=== PATIENT | male | born 1955 | race African-American/Black ===

== ENCOUNTER 2016-12-21 00:35 | Emergency (ER) | payer OTHER ==
--- NOTE | 2016-12-21 02:14 | ER Document Report ---
ED Respiratory Problem - General Chief Complaint: Shortness Of Breath Stated Complaint: SHORTNESS OF BREATH Time Seen by Provider: 12/21/16 01:53 Notes: Patient is a 61-year-old male who comes emergency department for chief complaint of cough for 1 week with yellow sputum production and also for increasing shortness of breath over the past 3 days. He states when he walks a short distance he becomes short of breath. He denies chest pain. He states he does have some pain in his upper abdomen over the past day. He denies injury, fever. Past medical history of "enlarged heart" and pacemaker, on metoprolol, denies history of [place], is not on a diuretic, denies lower extremity swelling. TRAVEL OUTSIDE OF THE [place] IN LAST 30 DAYS: No - Related Data Allergies/Adverse Reactions: No Known Allergies Allergy (Unverified 12/21/16 00:41) Past Medical History - General Information source: Patient - Social History Smoking Status: Never Smoker Frequency of alcohol use: None Drug Abuse: None Lives with: Family Family History: None Patient has suicidal ideation: No Patient has homicidal ideation: No - Past Medical History Cardiac Medical History: Reports: Hx Congestive Heart Failure, Hx Hypercholesterolemia, Hx Hypertension Pulmonary Medical History: Denies: Hx Tuberculosis Endocrine Medical History: Reports: Hx Diabetes Mellitus Type 2 Renal/ Medical History: Denies: Hx Peritoneal Dialysis Musculoskeltal Medical History: Reports Hx Arthritis Traumatic Medical History: Reports: Hx Fractures - foot 30 yrs ago Past Surgical History: Reports: Hx Cardiac Surgery - paced/defib x2, Hx Pacemaker - Immunizations Hx Diphtheria, Pertussis, Tetanus Vaccination: No Review of Systems - Review of Systems Constitutional: No symptoms reported EENT: No symptoms reported Cardiovascular: See HPI Respiratory: See HPI Gastrointestinal: See HPI Genitourinary: No symptoms reported Male Genitourinary: No symptoms reported Musculoskeletal: No symptoms reported Skin: No symptoms reported Hematologic/Lymphatic: No symptoms reported Neurological/Psychological: No symptoms reported Physical Exam - Vital signs Vitals: Temp Pulse Resp BP Pulse Ox 98.2 F 68 16 138/89 H 99 12/21/16 00:36 12/21/16 00:36 12/21/16 00:36 12/21/16 00:36 12/21/16 00:36 Interpretation: Normal - General General appearance: Appears well, Alert In distress: None - HEENT Head: Normocephalic, Atraumatic Eyes: Normal Conjunctiva: Normal Extraocular movements intact: Yes Eyelashes: Normal Pupils: PERRL Mucous membranes: Normal Pharynx: Normal Neck: Normal - Respiratory Respiratory status: No respiratory distress Chest status: Nontender Breath sounds: Normal. No: Decreased air movement, Rales, Rhonchi, Wheezing Chest palpation: Normal - Cardiovascular Rhythm: Regular Heart sounds: Normal auscultation Murmur: No - Abdominal Inspection: Normal Distension: No distension Bowel sounds: Normal Tenderness: Tender - upper abdominal tenderness, slightly worse in the RUQ, otherwise benign exam Organomegaly: No organomegaly - Back Back: Normal, Nontender. No: Tender - Extremities General upper extremity: Normal inspection, Nontender, Normal color, Normal ROM , Normal temperature General lower extremity: Normal inspection, Nontender, Normal color, Normal ROM , Normal temperature, Normal weight bearing. No: Meghan's sign - Neurological Neuro grossly intact: Yes Cognition: Normal Orientation: AAOx4 Nish Coma Scale Eye Opening: Spontaneous Ben[place] Coma Scale Verbal: Oriented Nish Coma Scale Motor: Obeys Commands Nish Coma Scale Total: 15 Speech: Normal Motor strength normal: LUE, RUE, LLE, RLE Sensory: Normal - Psychological Associated symptoms: Normal affect, Normal mood - Skin Skin Temperature: Warm Skin Moisture: Dry Skin Color: Normal Course - Re-evaluation Re-evalutation: EKG showing paced rhythm, initial cardiac enzyme indeterminate, patient not complaining of any chest pain, only shortness of breath. No lower extremity swelling that is significant. Lungs clear on examination, no tachypnea or hypoxia. Patient does however become short of breath when he is laying flat. CBC shows leukocytosis with elevation of neutrophils. Chest x-ray showing questionable appearance or opacity in the upper lungs, recommend CAT scan. CAT scan performed after discussion with patient and him being agreeable with this plan, shows possible pneumonia versus fibrosis versus cancer. Patient discussed with Dr. Guerrero. Patient will be covered for pneumonia, he states that he will follow-up very closely with his primary for additional management including additional imaging , discussed return precautions, patient states understanding and agreement. - Vital Signs Vital signs: Temp Pulse Resp BP Pulse Ox 98.2 F 74 20 134/93 H 99 12/21/16 07:04 12/21/16 07:04 12/21/16 07:04 12/21/16 07:04 12/21/16 07:04 - Laboratory Result Diagrams: 12/21/16 02:28 12/21/16 02:28 Laboratory results interpreted by me: 12/21/16 12/21/16 02:28 02:28 WBC 12.5 H Hgb 13.0 L MCHC 31.3 L RDW 14.4 H Absolute Neutrophils 9.2 H Sodium 146.0 H BUN 29 H Creatinine 1.51 H Est GFR ( Amer) 57 L Est GFR (Non-Af Amer) 47 L Glucose 144 H Total Protein 8.8 H Discharge - Discharge Clinical Impression: Shortness of breath Abdominal pain Qualifiers: Abdominal location: generalized Qualified Code(s): R10.84 - Generalized abdominal pain Condition: Stable Disposition: HOME, SELF-CARE Additional Instructions: Your ultrasound shows fatty tissue in your liver, but the gallbladder appears normal. Follow up with your primary provider for management of this. Your CAT scan shows an area in the upper lobe of your lung that could be pneumonia with nearby swollen lymph nodes, however this could also be something different such as fibrosis or even cancer. The recommendation is for you to get a 7-12 week repeat surveillance CAT scan of the chest to make sure this is not progressing into cancer and to make sure it clears after treatment. Please take the Levaquin antibiotic as prescribed, I recommend that you follow- up within the week with your primary care for reevaluation and additional management. Please return immediately if you develop any concerning or worsening symptoms including fever, worsening shortness of breath, chest pain, or any other concerning symptoms. Prescriptions: Levofloxacin [Levaquin 500 mg Tablet] 500 mg PO DAILY #7 tablet Forms: Return to Work
[2016-12-21] MEDS ORDERED: ONDANSETRON 4 MG TAB.RAPDIS PO ONE (02:19)
[2016-12-21] MEDS ORDERED: ONDANSETRON HCL INJ/PF 4 MG/2 ML SDV IV ONE (02:29)
[2016-12-21 02:40] LABS: ABSOLUTE BASOPHILS # (AUTO) 0.1 10^3/uL (0.0-0.2); ABSOLUTE EOSINOPHILS # (AUTO) 0.1 10^3/uL (0.0-0.6); ABSOLUTE LYMPHOCYTES (AUTO) 1.8 10^3/uL (0.5-4.7); ABSOLUTE MONOCYTES (AUTO) 1.4 10^3/uL (0.1-1.4); ABSOLUTE NEUT (AUTO) 9.2 10^3/uL (1.7-8.2); BASOPHILS % (AUTO) 0.5 % (0-2); EOSINOPHILS % (AUTO) 0.5 % (0-6); HEMATOCRIT 41.6 % (37.9-51.0); HGB HCT DIFFERENCE -2.6; LYMPHOCYTES % (AUTO) 14.3 % (13-45); MEAN CORPUSCULAR HEMOGLOBIN 27.9 pg (27.0-33.4); MEAN CORPUSCULAR HGB CONC 31.3 g/dL (32.0-36.0); MEAN CORPUSCULAR VOLUME 89 fl (80-97); MONOCYTES % (AUTO) 10.9 % (3-13); RED BLOOD COUNT 4.66 10^6/uL (4.35-5.55); RED CELL DISTRIBUTION WIDTH 14.4 % (11.5-14.0); SEGMENTED NEUTROPHILS % (AUTO) 73.8 % (42-78); WHITE BLOOD COUNT 12.5 10^3/uL (4.0-10.5)
[2016-12-21 02:47] LABS: ALANINE AMINOTRANSFERASE 66 U/L (21-72); ALBUMIN 4.3 g/dL (3.5-5.0); ALKALINE PHOSPHATASE 90 U/L (38-126); ANION GAP 15 (5-19); ASPARTATE AMINO TRANSFERASE 43 U/L (17-59); BILIRUBIN,DIRECT 0.4 mg/dL (0.0-0.4); BILIRUBIN,TOTAL 0.6 mg/dL (0.2-1.3); BLOOD UREA NITROGEN 29 mg/dL (7-20); CALCIUM 9.2 mg/dL (8.4-10.2); CARBON DIOXIDE 24 mmol/L (22-30); CHLORIDE 107 mmol/L (98-107); CREATINE KINASE 134 U/L (55-170); CREATININE RESULT 1.51 mg/dL (0.52-1.25); GLUCOSE 144 mg/dL (75-110); LIPASE 139.6 U/L (23-300); POTASSIUM 4.5 mmol/L (3.6-5.0); TOTAL PROTEIN 8.8 g/dL (6.3-8.2)
[2016-12-21 02:59] LABS: CREATINE KINASE MB 1.04 ng/mL (<4.55)
[2016-12-21 03:10] LABS: TROPONIN I 0.041 ng/mL
--- NOTE | 2016-12-21 03:12 | RADIOLOGY REPORT (SQ) ---
EXAM DESCRIPTION: U/S ABDOMEN LIMITED W/O DOP COMPLETED DATE/TIME: 12/21/2016 2:58 am REASON FOR STUDY: RUQ pain, vomiting COMPARISON: None. TECHNIQUE: Dynamic and static grayscale images acquired of the abdomen and recorded on PACS. Additio nal selected color Doppler and spectral images recorded. LIMITATIONS: Bowel gas artifact and body habitus. FINDINGS: PANCREAS: Partially obscured. LIVER: Hepatic steatosis. LIVER VASCULATURE: Normal directional flow of the main portal vein and hepatic veins. GALLBLADDER: Nondistended gallbladder. ULTRASOUND-DETECTED REBOLLAR'S SIGN: Negative. INTRAHEPATIC DUCTS AND COMMON DUCT: 0.5 cm diameter CBD and intrahepatic ducts normal caliber. No kathleen ling defects. INFERIOR VENA CAVA: Normal flow. AORTA: Partially obscured. RIGHT KIDNEY: Normal size. Normal echogenicity. No solid or suspicious masses. No hydronephrosis. No calcifications. PERITONEAL AND RIGHT PLEURAL SPACE: No ascites or effusions. OTHER: No other significant findings. IMPRESSION: No acute findings. Hepatic steatosis. Limitation. TECHNICAL DOCUMENTATION: JOB ID: [id number]- All Rights Reserved
--- NOTE | 2016-12-21 03:53 | RADIOLOGY REPORT (SQ) ---
EXAM DESCRIPTION: CHEST PA/LAT COMPLETED DATE/TIME: 12/21/2016 3:29 am REASON FOR STUDY: shortness of breath, cough COMPARISON: 05/30/2016. 03/10/2012. EXAM PARAMETERS: NUMBER OF VIEWS: two views TECHNIQUE: Digital Frontal and Lateral radiographic views of the chest acquired. RADIATION DOSE: NA LIMITATIONS: none FINDINGS: LUNGS AND PLEURA: Mild interstitial markings. Small old -moderate left upper lobar, supra hilar opacity is stable. MEDIASTINUM AND HILAR STRUCTURES: Bi hilar fullness. HEART AND VASCULAR STRUCTURES: Moderate enlargement of the cardiac silhouette. BONES: No acute findings. HARDWARE: Left cardiac stimulation device and leads. OTHER: No other significant finding. IMPRESSION: No significant interval change. Small -mild left suprahilar opacity and bi hilar fullne ss. Differential diagnosis includes central pulmonary edema. Cannot exclude neoplasm. Consider con trast CT chest and/or 3 month CR surveillance as clinically warranted. TECHNICAL DOCUMENTATION: JOB ID: [id number] [employer]- All Rights Reserved
[2016-12-21] MEDS ORDERED: NORMAL SALINE 1000 ML 500 ML IV ONE (04:00)
[2016-12-21] MEDS ORDERED: HYDROCODONE/ACETAMINOPHEN 5-325 MG TABLET PO ONE (04:03)
--- NOTE | 2016-12-21 05:33 | RADIOLOGY REPORT (SQ) ---
EXAM DESCRIPTION: CTA CHEST COMPLETED DATE/TIME: 12/21/2016 5:19 am REASON FOR STUDY: shortness of breath, cough, eval opacity COMPARISON: CR, 12/21/2016. 05/30/2016. TECHNIQUE: CT scan of the chest performed using helical scanning technique with dynamic intravenous contrast injection. Images reviewed with lung, soft tissue and bone windows. Reconstructed coronal and sagittal MPR images reviewed. Additional 3 dimensional post-processing performed to develop Maximal Intensity Projection images ([place] P). All images stored on PACS. All CT scanners at this facility use dose modulation, iterative reconstruction, and/or weight based d osing when appropriate to reduce radiation dose to as low as reasonably achievable (ALARA). [facility]: Dose Right [facility]: CareDose [facility]: Dose Right [facility]: Teradose 4D [facility]: Telun[place]uk CONTRAST TYPE AND DOSE: 86 mL Isovue-300. Creatinine 1.5 RENAL FUNCTION: As above RADIATION DOSE: 1,507 LIMITATIONS: None. FINDINGS: LUNGS AND PLEURA: Small-moderate streaky and airspace opacity of the lingula and left uppe r lobe. AORTA AND GREAT VESSELS: No aneurysm or dissection. HEART: No pericardial effusion. PULMONARY ARTERIES: No emboli visualized in the main pulmonary arteries or the segmental branches. HILAR AND MEDIASTINAL STRUCTURES: Mild bi hilar lymphadenopathy. HARDWARE: None in the chest. UPPER ABDOMEN: Old granulomatous disease of the spleen. The Limited exam. THYROID AND OTHER SOFT TISSUES: No masses. No adenopathy. BONES: No acute or significant finding. 3D MIPS: Confirm above findings. OTHER: No other significant finding. IMPRESSION: Small-moderate streaky in airspace opacity of the left upper lobe. Mild bilateral hilar lymphadenopathy. Differential diagnosis includes pneumonia and fibrosis. Cannot exclude neoplasm. Consider 7-12week surveillance CT and/or current CT/ PET evaluation, as clinically warranted. TECHNICAL DOCUMENTATION: JOB ID: [id number] Quality ID # [id number]: Final reports with documentation of one or more dose reduction techniques (e.g., Au tomated exposure control, adjustment of the mA and/or kV according to patient size, use of iterative reconstruction technique) 2010 [employer]- All Rights Reserved
[2016-12-21] MEDS ORDERED: CEFTRIAXONE 1 GM/D5W RTU 50 ML IV ONE (05:37)
[2016-12-21 07:06] VITALS: BP 134/93
--- NOTE | 2016-12-21 09:34 | EKG REPORT ---
SEVERITY:- ABNORMAL ECG - SINUS RHYTHM FIRST DEGREE AV BLOCK PROBABLE LEFT ATRIAL ABNORMALITY NONSPECIFIC IVCD WITH LAD LEFT VENTRICULAR HYPERTROPHY : Confirmed by: Noel Ortega 21-Dec-2016 09:33:33
== END 2016-12-21 07:17 | disposition home or self-care (01) ==
LOC: ER 00:35
DX: R06.02 Shortness of breath (principal); R10.84 Generalized abdominal pain; R05 Cough; I10 Essential (primary) hypertension; E11.9 Type 2 diabetes mellitus without complications; Z98.890 Other specified postprocedural states; Z95.810 Presence of automatic (implantable) cardiac defibrillator; D72.828 Other elevated white blood cell count
CPT/HCPCS: 93005; 99285; 96361; 96375; 96365; 36415; 87040; 82553; 82550; 83690; 85025; 80053; 84484; 71020; 76705; 71275; 93010; J2405; J7030; J0696

== ENCOUNTER 2016-12-27 19:23 | Emergency (ER) | payer OTHER ==
--- NOTE | 2016-12-27 20:17 | ER Document Report ---
ED Medical Screen (RME) - General Chief Complaint: Shortness Of Breath Stated Complaint: DIFFICULTY BREATHING Time Seen by Provider: 12/27/16 20:13 Mode of Arrival: Wheelchair Information source: Patient TRAVEL OUTSIDE OF THE [place] IN LAST 30 DAYS: No - HPI Patient complains to provider of: cough, Shortness of breath, lower extremity edema Onset: Last week Onset/Duration: Gradual, Persistent, Worse Notes: 12/27/16 20:17 Patient is a 61-year-old male who presents to the emergency room complaining of cough productive of whitish colored phlegm, difficulty breathing, shortness of breath, bilateral lower extremity edema, worsening over the past week, states he was treated for pneumonia recently - Related Data Allergies/Adverse Reactions: No Known Allergies Allergy (Unverified 12/21/16 00:41) Past Medical History - Past Medical History Cardiac Medical History: Reports: Hx Congestive Heart Failure, Hx Hypercholesterolemia, Hx Hypertension Pulmonary Medical History: Denies: Hx Tuberculosis Endocrine Medical History: Reports: Hx Diabetes Mellitus Type 2 Renal/ Medical History: Denies: Hx Peritoneal Dialysis Musculoskeltal Medical History: Reports Hx Arthritis Traumatic Medical History: Reports: Hx Fractures - foot 30 yrs ago Past Surgical History: Reports: Hx Cardiac Surgery - paced/defib x2, Hx Pacemaker - Immunizations Hx Diphtheria, Pertussis, Tetanus Vaccination: No Physical Exam - Vital signs Vitals: Temp Pulse Resp BP Pulse Ox 98.4 F 65 18 111/78 98 12/27/16 19:55 12/27/16 19:55 12/27/16 19:55 12/27/16 19:55 12/27/16 19:55 Course - Vital Signs Vital signs: Temp Pulse Resp BP Pulse Ox 98.4 F 65 18 111/78 98 12/27/16 19:55 12/27/16 19:55 12/27/16 19:55 12/27/16 19:55 12/27/16 19:55
[2016-12-27 21:03] LABS: ABSOLUTE BASOPHILS # (AUTO) 0.1 10^3/uL (0.0-0.2); ABSOLUTE EOSINOPHILS # (AUTO) 0.1 10^3/uL (0.0-0.6); ABSOLUTE LYMPHOCYTES (AUTO) 1.8 10^3/uL (0.5-4.7); ABSOLUTE MONOCYTES (AUTO) 1.3 10^3/uL (0.1-1.4); ABSOLUTE NEUT (AUTO) 6.5 10^3/uL (1.7-8.2); BASOPHILS % (AUTO) 0.6 % (0-2); EOSINOPHILS % (AUTO) 1.1 % (0-6); HEMATOCRIT 39.6 % (37.9-51.0); HEMOGLOBIN 12.6 g/dL (13.5-17.0); HGB HCT DIFFERENCE -1.8; LYMPHOCYTES % (AUTO) 18.2 % (13-45); MEAN CORPUSCULAR HGB CONC 31.8 g/dL (32.0-36.0); MEAN CORPUSCULAR VOLUME 88 fl (80-97); MONOCYTES % (AUTO) 13.3 % (3-13); RED CELL DISTRIBUTION WIDTH 14.6 % (11.5-14.0); SEGMENTED NEUTROPHILS % (AUTO) 66.8 % (42-78); WHITE BLOOD COUNT 9.7 10^3/uL (4.0-10.5)
[2016-12-27 21:28] LABS: ALANINE AMINOTRANSFERASE 227 U/L (21-72); ALBUMIN 3.8 g/dL (3.5-5.0); ALKALINE PHOSPHATASE 93 U/L (38-126); ANION GAP 11 (5-19); ASPARTATE AMINO TRANSFERASE 159 U/L (17-59); BILIRUBIN,DIRECT 0.5 mg/dL (0.0-0.4); BILIRUBIN,TOTAL 0.9 mg/dL (0.2-1.3); BLOOD UREA NITROGEN 30 mg/dL (7-20); CALCIUM 8.8 mg/dL (8.4-10.2); CARBON DIOXIDE 26 mmol/L (22-30); CHLORIDE 101 mmol/L (98-107); CREATININE RESULT 1.61 mg/dL (0.52-1.25); GLUCOSE 95 mg/dL (75-110); POTASSIUM 5.2 mmol/L (3.6-5.0); SODIUM 137.6 mmol/L (137-145); TOTAL PROTEIN 8.2 g/dL (6.3-8.2)
--- NOTE | 2016-12-27 23:34 | RADIOLOGY REPORT (SQ) ---
EXAM DESCRIPTION: CHEST PA/LAT COMPLETED DATE/TIME: 12/27/2016 11:19 pm REASON FOR STUDY: cough COMPARISON: CT chest 12/21/2016 Chest films 12/21/2016, 05/30/2016, 03/10/2012 EXAM PARAMETERS: NUMBER OF VIEWS: two views TECHNIQUE: Digital Frontal and Lateral radiographic views of the chest acquired. RADIATION DOSE: NA LIMITATIONS: none FINDINGS: LUNGS AND PLEURA: Scarring in the left upper lobe similar compared to 05/30/2016. No fluffy alveolar infiltrates worrisome for edema or pneumonia. No pleural effusions. No pneumotho rax. MEDIASTINUM AND HILAR STRUCTURES: No masses or contour abnormalities. HEART AND VASCULAR STRUCTURES: Stable marked cardiomegaly BONES: No acute findings. HARDWARE: Unchanged left-sided pacemaker OTHER: No other significant finding. IMPRESSION: No acute findings TECHNICAL DOCUMENTATION: JOB ID: [id number] [employer]- All Rights Reserved
[2016-12-28] MEDS ORDERED: FUROSEMIDE 40 MG TABLET PO ONE (00:50)
[2016-12-28 00:55] VITALS: BP 124/88
--- NOTE | 2016-12-28 00:56 | ER Document Report ---
ED General - General Chief Complaint: Shortness Of Breath Stated Complaint: DIFFICULTY BREATHING Time Seen by Provider: 12/27/16 20:13 Mode of Arrival: Wheelchair Notes: Patient is a 61-year-old male with past medical history of CHF status post defibrillator placement, chronic kidney disease, recent evaluation and treatment for pneumonia who presents with progressively worsening bilateral lower extremity edema which makes it difficult for him to ambulate. Of note, although in triage there is apparently reported complaint of shortness of breath patient denies this complaint to me and states that his breathing is actually much better than it was a week ago when he was seen and treated for pneumonia. Describes a constant, dull, aching pain to his bilateral lower extremities is worsened by walking. Nothing improves it. States he has had similar symptoms in the past with fluid retention and he notes that he has gained weight since he was last seen in the emergency department. He has not seen his primary care doctor regarding today's concerns. He denies any associated chest pain, syncope, abdominal pain, nausea or vomiting. TRAVEL OUTSIDE OF THE [place] IN LAST 30 DAYS: No - Related Data Allergies/Adverse Reactions: No Known Allergies Allergy (Verified 12/27/16 23:08) Past Medical History - General Information source: Patient - Social History Smoking Status: Never Smoker Chew tobacco use (# tins/day): No Frequency of alcohol use: None Drug Abuse: None Lives with: Family Family History: Reviewed & Not Pertinent - Past Medical History Cardiac Medical History: Reports: Hx Congestive Heart Failure, Hx Hypercholesterolemia, Hx Hypertension Pulmonary Medical History: Denies: Hx Tuberculosis Endocrine Medical History: Reports: Hx Diabetes Mellitus Type 2 Renal/ Medical History: Denies: Hx Peritoneal Dialysis Musculoskeltal Medical History: Reports Hx Arthritis Traumatic Medical History: Reports: Hx Fractures - foot 30 yrs ago Past Surgical History: Reports: Hx Cardiac Surgery - paced/defib x2, Hx Pacemaker - Immunizations Hx Diphtheria, Pertussis, Tetanus Vaccination: - unk Review of Systems - Review of Systems Notes: Constitutional: Negative for fever. HENT: Negative for sore throat. Eyes: Negative for visual changes. Cardiovascular: Negative for chest pain. Respiratory: Negative for shortness of breath. Gastrointestinal: Negative for abdominal pain, vomiting or diarrhea. Genitourinary: Negative for dysuria. Musculoskeletal: Negative for back pain. Positive for bilateral lower extremity edema Skin: Negative for rash. Neurological: Negative for headaches, weakness or numbness. 10 point ROS negative except as marked above and in HPI. Physical Exam - Vital signs Vitals: Temp Pulse Resp BP Pulse Ox 98.4 F 65 18 111/78 98 12/27/16 19:55 12/27/16 19:55 12/27/16 19:55 12/27/16 19:55 12/27/16 19:55 Interpretation: Normal Notes: PHYSICAL EXAMINATION: GENERAL: Well-appearing, well-nourished and in no acute distress. HEAD: Atraumatic, normocephalic. EYES: Pupils equal round and reactive to light, extraocular movements intact, sclera anicteric, conjunctiva are normal. ENT: nares patent, oropharynx clear without exudates. Moist mucous membranes. NECK: Normal range of motion, supple without lymphadenopathy LUNGS: Breath sounds clear to auscultation bilaterally and equal. No wheezes rales or rhonchi. HEART: Regular rate and rhythm, 3/6 systolic ejection murmur ABDOMEN: Soft, nontender, normoactive bowel sounds. No guarding, no rebound. No masses appreciated. EXTREMITIES: 4+ pitting edema to the level of the knee bilaterally that is equal and symmetric. NEUROLOGICAL: No focal neurological deficits. Moves all extremities spontaneously and on command. PSYCH: Normal mood, normal affect. SKIN: Warm, Dry, normal turgor, no rashes or lesions noted. Course - Re-evaluation Re-evalutation: 12/28/16 00:53 Patient presents with increased bilateral leg swelling which she states makes it difficult for him to walk. Patient has gained 5 kg since his last visit to the emergency department only a week ago and does have 4+ pitting edema in the bilateral lower extremities. He does have a history of CHF although is not currently on any diuretics. He did receive some IV fluids during his most recent evaluation in the emergency department. Patient overall clinically appears quite well, no tachypnea, hypoxemia, or evidence of respiratory distress. Chest x-ray without evidence of pulmonary edema. Appears unchanged from his prior chest x-ray. Patient states overall his work of breathing is much improved since he was last in the emergency department after a 7 day course of antibiotics. Of note, this is contrary to the triage initial assessment which patient apparently did complain of some shortness of breath. However to me he is very clear that he is no longer having any shortness of breath and states the main reason for his emergency department visit is due to his increased fluid gain in his lower extremities and how this makes it difficult for him to walk. He denies any chest pain and his EKG is without any ischemic changes. No indication for troponin testing as I do not have a suspicion for ACS at this time. No indication for admission at this time. His laboratories are overall unremarkable. ProBNP is slightly elevated from his baseline which is consistent with his weight gain. He will be placed in compression stockings prior to discharge. He will be started on Lasix 20 mg daily for 1 week and has been asked to follow-up with his primary care doctor within that time period. - Vital Signs Vital signs: Temp Pulse Resp BP Pulse Ox 97.9 F 65 18 124/88 H 99 12/28/16 00:54 12/28/16 00:54 12/28/16 00:54 12/28/16 00:54 12/28/16 00:54 - Laboratory Result Diagrams: 12/27/16 20:44 12/27/16 20:44 Laboratory results interpreted by me: 12/27/16 12/27/16 12/27/16 20:44 20:44 20:44 Hgb 12.6 L MCHC 31.8 L RDW 14.6 H Monocytes % 13.3 H Potassium 5.2 H BUN 30 H Creatinine 1.61 H Est GFR ( Amer) 53 L Est GFR (Non-Af Amer) 44 L Direct Bilirubin 0.5 H AST 159 H ALT 227 H NT-Pro-B Natriuret Pep 5360 H - Diagnostic Test Radiology reviewed: Image reviewed, Reports reviewed Radiology results interpreted by me: 12/28/16 00:55 Chest x-ray: No acute infiltrate or pneumothorax. cardiomegaly. - EKG Interpretation by Me Additional EKG results interpreted by me: 12/28/16 00:55 Normal sinus rhythm. No ST elevations or depressions. First-degree AV block. Right bundle branch block pattern. QTC at 502. Discharge - Discharge Clinical Impression: Pitting edema, Weight gain, abnormal Condition: Good Disposition: HOME, SELF-CARE Additional Instructions: Please take the furosemide as directed for the next 1 week. Wear the compression stockings as much your able. Follow-up with your primary care doctor within the next 1 week. Return to the emergency department if you have increasing shortness of breath, chest pain, pass out, or have any other symptoms that are worrisome to you. Prescriptions: Furosemide [Lasix 20 mg Tablet] 20 mg PO QAM #7 tablet Forms: Return to Work Referrals: LONNIE SNOWDEN MD [Primary Care Provider] - Follow up as needed
--- NOTE | 2016-12-28 10:22 | EKG REPORT ---
SEVERITY:- ABNORMAL ECG - SINUS RHYTHM FIRST DEGREE AV BLOCK RBBB AND LAFB PROBABLE LVH WITH SECONDARY REPOL ABNRM : Confirmed by: Bre Quijano MD 28-Dec-2016 10:21:11
== END 2016-12-28 01:15 | disposition home or self-care (01) ==
LOC: ER 19:23
DX: R60.0 Localized edema (principal); R63.5 Abnormal weight gain; Z68.39 Body mass index [BMI] 39.0-39.9, adult; I44.0 Atrioventricular block, first degree; E11.9 Type 2 diabetes mellitus without complications; I10 Essential (primary) hypertension; Z95.810 Presence of automatic (implantable) cardiac defibrillator; Z86.79 Personal history of other diseases of the circulatory system; Z87.01 Personal history of pneumonia (recurrent)
CPT/HCPCS: 36415; 71020; 80053; 83880; 85025; 87040; 93005; 93010; 99285

== ENCOUNTER 2017-01-27 17:43 | Emergency (ER) | payer OTHER ==
--- NOTE | 2017-01-27 18:26 | ER Document Report ---
ED Medical Screen (RME) - General Chief Complaint: Dizziness Stated Complaint: DIZZY Time Seen by Provider: 01/27/17 18:22 Notes: 61-year-old male who presents stating that he gets dizzy when he walks. He states it happens every time he walks and he feels like he is going to pass out and has to sit down. He also states that he gets some chest pressure and shortness of breath with exertion. He states he does not feel that the chest pressure or shortness of breath are new because he has had this with exertion in the past. However he states that he has not been dizzy with exertion in the past. He does state that his home improvement advisor started him on a new medication 2 weeks ago to control his heart rate. He does not know the name of this medication. Patient denies any vomiting or diarrhea. He states he has not actually passed out. No cough or cold. He states he has no symptoms when sitting down. TRAVEL OUTSIDE OF THE [place] IN LAST 30 DAYS: No - Related Data Allergies/Adverse Reactions: No Known Allergies Allergy (Verified 01/27/17 17:56) Past Medical History - Past Medical History Cardiac Medical History: Reports: Hx Congestive Heart Failure, Hx Hypercholesterolemia, Hx Hypertension Pulmonary Medical History: Denies: Hx Tuberculosis Endocrine Medical History: Reports: Hx Diabetes Mellitus Type 2 Renal/ Medical History: Denies: Hx Peritoneal Dialysis Musculoskeltal Medical History: Reports Hx Arthritis Traumatic Medical History: Reports: Hx Fractures - foot 30 yrs ago Past Surgical History: Reports: Hx Cardiac Surgery - paced/defib x2, Hx Pacemaker - Immunizations Hx Diphtheria, Pertussis, Tetanus Vaccination: - unk Physical Exam - Vital signs Vitals: Temp Pulse Resp BP Pulse Ox 97.7 F 59 L 14 129/88 H 98 01/27/17 17:53 01/27/17 17:53 01/27/17 17:53 01/27/17 17:53 01/27/17 17:53 Course - Vital Signs Vital signs: Temp Pulse Resp BP Pulse Ox 97.7 F 59 L 14 129/88 H 98 01/27/17 17:53 01/27/17 17:53 01/27/17 17:53 01/27/17 17:53 01/27/17 17:53
[2017-01-27 18:56] LABS: ABSOLUTE EOSINOPHILS # (AUTO) 0.1 10^3/uL (0.0-0.6); ABSOLUTE LYMPHOCYTES (AUTO) 1.4 10^3/uL (0.5-4.7); ABSOLUTE NEUT (AUTO) 5.1 10^3/uL (1.7-8.2); BASOPHILS % (AUTO) 0.5 % (0-2); EOSINOPHILS % (AUTO) 0.8 % (0-6); MEAN CORPUSCULAR HEMOGLOBIN 27.6 pg (27.0-33.4); MEAN CORPUSCULAR HGB CONC 31.8 g/dL (32.0-36.0); MEAN CORPUSCULAR VOLUME 87 fl (80-97); RED BLOOD COUNT 4.71 10^6/uL (4.35-5.55); SEGMENTED NEUTROPHILS % (AUTO) 67.7 % (42-78); WHITE BLOOD COUNT 7.6 10^3/uL (4.0-10.5)
--- NOTE | 2017-01-27 18:58 | RADIOLOGY REPORT (SQ) ---
EXAM DESCRIPTION: CHEST SINGLE VIEW COMPLETED DATE/TIME: 01/27/2017 6:43 pm REASON FOR STUDY: sob COMPARISON: Chest radiograph 12/17/[address] 12/21/2016 EXAM PARAMETERS: NUMBER OF VIEWS: One view. TECHNIQUE: Single frontal radiographic view of the chest acquired. RADIATION DOSE: NA LIMITATIONS: None. FINDINGS: LUNGS AND PLEURA: Stable chronic lung change without new opacities, masses or pneumothorax . No pleural effusion. MEDIASTINUM AND HILAR STRUCTURES: No masses. Contour normal. HEART AND VASCULAR STRUCTURES: Heart stable in size. Normal vasculature. BONES: No acute findings. HARDWARE: Stable. OTHER: No other significant finding. IMPRESSION: NO ACUTE CARDIOPULMONARY PROCESS. NO SIGNIFICANT CHANGE FROM PRIOR STUDY TECHNICAL DOCUMENTATION: JOB ID: [id number]
[2017-01-27 19:12] LABS: ALANINE AMINOTRANSFERASE 64 U/L (21-72); ALBUMIN 4.4 g/dL (3.5-5.0); ALKALINE PHOSPHATASE 118 U/L (38-126); ANION GAP 13 (5-19); ASPARTATE AMINO TRANSFERASE 56 U/L (17-59); BILIRUBIN,DIRECT 0.5 mg/dL (0.0-0.4); BLOOD UREA NITROGEN 38 mg/dL (7-20); CALCIUM 8.9 mg/dL (8.4-10.2); CARBON DIOXIDE 22 mmol/L (22-30); CHLORIDE 105 mmol/L (98-107); CREATININE RESULT 2.34 mg/dL (0.52-1.25); GLUCOSE 107 mg/dL (75-110); POTASSIUM 4.6 mmol/L (3.6-5.0); SODIUM 140.3 mmol/L (137-145); TOTAL PROTEIN 8.4 g/dL (6.3-8.2)
--- NOTE | 2017-01-27 20:08 | ER Document Report ---
ED General - General Chief Complaint: Dizziness Stated Complaint: DIZZY Time Seen by Provider: 01/27/17 18:22 Notes: Patient is a 61-year-old male with a past medical history of CHF status post AICD placement, coronary artery disease, morbid obesity, hypertension hyperlipidemia who presents with 3 weeks of exertional lightheadedness and near syncope. Patient reports that the symptoms to resolve after he sits down to rest. He notes that he has some mild shortness of breath during exertion but that this is unchanged from his baseline for the past several years. 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 He denies any chest pain. At time of my assessment he denies any complaints and states that he is always asymptomatic when he is lying or sitting. He has not had any firing of the AICD. He denies any focal weakness or numbness. TRAVEL OUTSIDE OF THE [place] IN LAST 30 DAYS: No - Related Data Allergies/Adverse Reactions: No Known Allergies Allergy (Verified 01/27/17 17:56) Past Medical History - General Information source: Patient - Social History Smoking Status: Never Smoker Chew tobacco use (# tins/day): No Frequency of alcohol use: None Drug Abuse: None Lives with: Spouse/Significant other Family History: Reviewed & Not Pertinent Patient has suicidal ideation: No Patient has homicidal ideation: No - Past Medical History Cardiac Medical History: Reports: Hx Congestive Heart Failure, Hx Hypercholesterolemia, Hx Hypertension Pulmonary Medical History: Denies: Hx Tuberculosis Endocrine Medical History: Reports: Hx Diabetes Mellitus Type 2 Renal/ Medical History: Denies: Hx Peritoneal Dialysis Musculoskeltal Medical History: Reports Hx Arthritis Traumatic Medical History: Reports: Hx Fractures - foot 30 yrs ago Past Surgical History: Reports: Hx Cardiac Surgery - paced/defib x2, Hx Pacemaker - Immunizations Hx Diphtheria, Pertussis, Tetanus Vaccination: - unk Review of Systems - Review of Systems Notes: Constitutional: Negative for fever. HENT: Negative for sore throat. Eyes: Negative for visual changes. Cardiovascular: Negative for chest pain. Respiratory: Negative for shortness of breath. Gastrointestinal: Negative for abdominal pain, vomiting or diarrhea. Genitourinary: Negative for dysuria. Musculoskeletal: Negative for back pain. Skin: Negative for rash. Neurological: Negative for headaches, weakness or numbness. 10 point ROS negative except as marked above and in HPI. Physical Exam - Vital signs Vitals: Temp Pulse Resp BP Pulse Ox 97.7 F 59 L 14 129/88 H 98 01/27/17 17:53 01/27/17 17:53 01/27/17 17:53 01/27/17 17:53 01/27/17 17:53 Interpretation: Normal Notes: PHYSICAL EXAMINATION: GENERAL: Well-appearing, well-nourished and in no acute distress. HEAD: Atraumatic, normocephalic. EYES: Pupils equal round and reactive to light, extraocular movements intact, sclera anicteric, conjunctiva are normal. ENT: nares patent, oropharynx clear without exudates. Moist mucous membranes. NECK: Normal range of motion, supple without lymphadenopathy LUNGS: Breath sounds clear to auscultation bilaterally and equal. No wheezes rales or rhonchi. HEART: Regular rate and rhythm without murmurs ABDOMEN: Soft, nontender, normoactive bowel sounds. No guarding, no rebound. No masses appreciated. EXTREMITIES: Normal range of motion, 3+ pitting edema in the bilateral lower extremities, equal and symmetric NEUROLOGICAL: No focal neurological deficits. Moves all extremities spontaneously and on command. PSYCH: Normal mood, normal affect. SKIN: Warm, Dry, normal turgor, no rashes or lesions noted. Course - Re-evaluation Re-evalutation: 01/27/17 19:56 Patient presents with symptoms of exertional lightheadedness and mild shortness of breath for the past 2-3 weeks. Symptoms are unchanged today. Patient is asymptomatic at time of my assessment while lying in bed. Vitals within normal limits. A troponin is negative and an EKG is unchanged from prior without any acute ischemic changes. Patient is saturating 97% on room air without tachypnea or tachycardia. I do not suspect an acute pulmonary embolus based on exam and history of his well score is 0. Chest x-ray without evidence of pulmonary vascular congestion or pulmonary edema to suggest this is the etiology for patient's presentation. Patient's creatinine is notably elevated relative to the last time he was seen in December at 2.37 today with a prerenal azotemia based on the BUN/creatinine ratio 17. Patient does note that he continues to work outside 8-12 hours a day often drinking only 1 bottle of water and this would be consistent with a prerenal azotemia as seen on labs as well as his history of having exertional lightheadedness and feelings of near syncope. Of note, patient has not had any actual syncopal episodes. He really has an AICD in place for his prior history of CHF and has not had any firing of this device. Patient was ambulated here in the emergency department today without any evidence of significant tachypnea, tachycardia, hypoxemia or syncope. Patient did have mild bradycardia to a heart rate of 43-45 per the nurse. He does have an AICD with a pacer in place and appears that the pacer function is either not activated or the rate is set to rest rate of 40 or lower. I have stressed the importance of close follow-up with patient's director business systems regarding this bradycardia on exertion. I have encouraged the patient to increase his oral fluid intake and will avoid IV fluid administration given his history of CHF. At this time will discharge with return precautions and follow-up recommendations. Verbal discharge instructions given a the bedside and opportunity for questions given. Medication warnings reviewed. Patient is in agreement with this plan and has verbalized understanding of return precautions and the need for primary care follow-up in the next 24-72 hours. - Vital Signs Vital signs: Temp Pulse Resp BP Pulse Ox 98.3 F 60 23 H 124/95 H 100 01/27/17 20:03 01/27/17 19:22 01/27/17 20:03 01/27/17 20:03 01/27/17 20:02 - Laboratory Result Diagrams: 01/27/17 18:35 01/27/17 18:35 Laboratory results interpreted by me: 01/27/17 01/27/17 18:35 18:35 Hgb 13.0 L MCHC 31.8 L RDW 15.0 H BUN 38 H Creatinine 2.34 H Est GFR ( Amer) 34 L Est GFR (Non-Af Amer) 28 L Direct Bilirubin 0.5 H Total Protein 8.4 H - Diagnostic Test Radiology reviewed: Image reviewed, Reports reviewed Radiology results interpreted by me: 01/27/17 19:59 Chest x-ray: No acute infiltrate or pulmonary edema - EKG Interpretation by Me Additional EKG results interpreted by me: 01/27/17 19:59 Sinus rhythm, rate 60. No ST elevations or depressions. First-degree AV block. Left bundle branch block. Unchanged from prior. Discharge - Discharge Clinical Impression: Dizziness, Exertional dyspnea, Prerenal azotemia Condition: Good Disposition: HOME, SELF-CARE Additional Instructions: Your heart rate does drop when you exert yourself here today on ambulation. You need to follow-up with your director business systems regarding this finding as they may need to adjust your pacemaker to prevent your heart rate from dropping so low. Please be sure to drink plenty of fluids and have a recheck of your kidney function testing within the next 1 week. Please return to the emergency department immediately if you pass out, have worsening of your symptoms, chest pain, or any other symptoms that are worrisome to you. Referrals: LONNIE SNOWDEN MD [Primary Care Provider] - Follow up as needed BENIGNO SHEPPARD MD [ACTIVE STAFF] - Follow up in 3-5 days
[2017-01-27 20:32] VITALS: BP 124/95
--- NOTE | 2017-01-29 05:57 | EKG REPORT ---
SEVERITY:- ABNORMAL ECG - SINUS RHYTHM FIRST DEGREE AV BLOCK LEFT BUNDLE BRANCH BLOCK : Confirmed by: Bre Quijano MD 29-Jan-2017 05:57:20
== END 2017-01-27 20:20 | disposition home or self-care (01) ==
LOC: ER 17:43
DX: R42 Dizziness and giddiness (principal); R06.00 Dyspnea, unspecified; R79.89 Other specified abnormal findings of blood chemistry; I50.9 Heart failure, unspecified; I25.10 Atherosclerotic heart disease of native coronary artery without angina pectoris; E66.01 Morbid (severe) obesity due to excess calories; I10 Essential (primary) hypertension; E78.5 Hyperlipidemia, unspecified; R06.02 Shortness of breath
CPT/HCPCS: 36415; 71010; 80053; 84484; 85025; 93005; 93010; 99284

== ENCOUNTER 2017-02-03 07:46 | Emergency (ER) | payer OTHER ==
--- NOTE | 2017-02-03 08:30 | ER Document Report ---
ED Respiratory Problem - General Chief Complaint: Chest Pain Stated Complaint: SHORTNESS OF BREATH Time Seen by Provider: 02/03/17 08:09 Mode of Arrival: Ambulatory Information source: Patient Notes: Patient presents complaining of dyspnea for the past 3-4 weeks. Patient states that he got up really fast this morning and felt dizzy just for a few seconds and then the dizziness resolved. Patient denies any dizziness at this time. Patient does state that his exertional dyspnea seems to be a little bit worse today. Patient reports occasional mild cough. Patient denies any fever or chest pain. Patient does report epigastric tenderness with ambulating. Patient presently denies any tenderness. Patient denies any nausea or vomiting. TRAVEL OUTSIDE OF THE [place] IN LAST 30 DAYS: No - HPI Patient complains to provider of: Short of breath Onset: Other - 3-4 weeks Duration: Worse/persistent Quality of pain: Pressure Pain Level: Denies Context: Hx CHF. denies: Recent immobilization Cough: Nonproductive Associated symptoms: Cough, Extertional dyspnea, Short of breath. 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 Lives with: Alone Family History: Reviewed & Not Pertinent - Past Medical History Cardiac Medical History: Reports: Hx Congestive Heart Failure, Hx Hypercholesterolemia, Hx Hypertension Pulmonary Medical History: Reports: Hx Pneumonia Denies: Hx Tuberculosis Endocrine Medical History: Reports: Hx Diabetes Mellitus Type 2 Renal/ Medical History: Denies: Hx Peritoneal Dialysis Musculoskeltal Medical History: Reports Hx Arthritis Traumatic Medical History: Reports: Hx Fractures - foot 30 yrs ago Past Surgical History: Reports: Hx Cardiac Surgery - paced/defib x2, Hx Pacemaker - Immunizations Hx Diphtheria, Pertussis, Tetanus Vaccination: - unk Review of Systems - Review of Systems Constitutional: No symptoms reported. denies: Fever, Recent illness EENT: No symptoms reported Cardiovascular: Dizziness - after getting up too quickly this am, last few seconds and resolved. denies: Chest pain Respiratory: Cough, Short of breath. denies: Wheezing Gastrointestinal: Abdominal pain - with exertion. denies: Diarrhea, Nausea, Vomiting, Constipation Genitourinary: No symptoms reported Male Genitourinary: No symptoms reported Musculoskeletal: No symptoms reported. denies: Back pain Skin: No symptoms reported Hematologic/Lymphatic: No symptoms reported Neurological/Psychological: No symptoms reported Physical Exam - Vital signs Vitals: Pulse Resp BP Pulse Ox 59 L 20 145/104 H 100 02/03/17 07:51 02/03/17 07:51 02/03/17 07:51 02/03/17 07:51 - General General appearance: Appears well, Alert In distress: None - HEENT Head: Normocephalic, Atraumatic Eyes: Normal Conjunctiva: Normal Nasal: Normal Mouth/Lips: Normal Mucous membranes: Normal Neck: Normal, Supple. No: Lymphadenopathy - Respiratory Respiratory status: No respiratory distress Chest status: Nontender Breath sounds: Normal Chest palpation: Normal - Cardiovascular Rhythm: Regular Heart sounds: S1 appreciated, S2 appreciated - Abdominal Inspection: Obese Distension: No distension Bowel sounds: Normal Tenderness: Tender - epigastric tenderness with palpatin. No: Guarding Organomegaly: No organomegaly - Back Back: Normal, Nontender. No: CVA tenderness - Extremities General upper extremity: Normal inspection, Normal ROM General lower extremity: Normal inspection, Edema - 3+bilat LE, Normal ROM - Neurological Neuro grossly intact: Yes Cognition: Normal Cooter Coma Scale Eye Opening: Spontaneous Cooter Coma Scale Verbal: Oriented Nish Coma Scale Motor: Obeys Commands Cooter Coma Scale Total: 15 - Psychological Associated symptoms: Normal affect, Normal mood - Skin Skin Temperature: Warm Skin Moisture: Dry Skin Color: Ecchymosis - left lateral side that extends to LLQ of abd Course - Re-evaluation Re-evalutation: 02/03/17 10:00 Patient resting comfortably on stretcher. Patient denies any complaints at present, vital signs stable. Patient denies any chest pain. Consulted with Dr. Oconnor regarding patient presentation, reviewed patient's diagnostic test results from today as well as previous 3 ER visits. Recommends giving patient 20 mg of IV Lasix and repeating troponin. If his repeat troponin is negative and the patient still feels well, discharge may be offered. 02/03/17 12:[address] while in the emergency department and heart rate and oxygen saturation remained stable. Patient states that his breathing was much easier while here in the department. Patient denies any chest pain or dizziness. Patient reports that GI cocktail helped his epigastric discomfort and he no longer has any epigastric discomfort at this time. Patient reports feeling better but states he will need a note for his job. Patient agreeable with discharge plan of care. Patient without any chest pain throughout the entire ER visit. Patient only with reproducible epigastric abdominal pain that resolved after GI cocktail. Vital signs stable during ER stay. Patient without any objective signs of dyspnea at this time. The patient has atypical chest pain as the patient's chest pain is not suggestive of pulmonary embolus, cardiac ischemia, aortic dissection, or other serious etiology. Given the extremely low risk of these diagnoses for the test in evaluation for these possibilities does not appear to be indicated at this time. Patient has been instructed to return if the symptoms worsen or change in any way. - Vital Signs Vital signs: Temp Pulse Resp BP Pulse Ox 97.0 F 59 L 16 134/102 H 100 02/03/17 12:53 02/03/17 07:51 02/03/17 12:51 02/03/17 12:51 02/03/17 12:51 - Laboratory Result Diagrams: 02/03/17 08:13 02/03/17 08:58 Laboratory results interpreted by me: 02/03/17 02/03/17 02/03/17 08:13 08:13 08:58 RDW 15.9 H PT 15.7 H BUN 41 H Creatinine 2.03 H Est GFR ( Amer) 40 L Est GFR (Non-Af Amer) 33 L Glucose 141 H Direct Bilirubin 0.6 H AST 81 H Alkaline Phosphatase 139 H NT-Pro-B Natriuret Pep Total Protein 8.3 H 02/03/17 08:58 RDW PT BUN Creatinine Est GFR ( Amer) Est GFR (Non-Af Amer) Glucose Direct Bilirubin AST Alkaline Phosphatase NT-Pro-B Natriuret Pep 3250 H Total Protein Labs- Entire Visit 02/03/17 02/03/17 02/03/17 08:13 08:13 08:58 WBC 6.6 RBC 4.93 Hgb 14.2 Hct 43.9 MCV 89 MCH 28.7 MCHC 32.3 RDW 15.9 H Plt Count 153 Seg Neutrophils % 71.0 Lymphocytes % 16.5 Monocytes % 10.6 Eosinophils % 1.4 Basophils % 0.5 Absolute Neutrophils 4.7 Absolute Lymphocytes 1.1 Absolute Monocytes 0.7 Absolute Eosinophils 0.1 Absolute Basophils 0.0 PT 15.7 H INR 1.17 APTT 31.1 Sodium 143.8 Potassium 4.6 Chloride 104 Carbon Dioxide 26 Anion Gap 14 BUN 41 H Creatinine 2.03 H Est GFR ( Amer) 40 L Est GFR (Non-Af Amer) 33 L Glucose 141 H Calcium 9.0 Total Bilirubin 0.9 Direct Bilirubin 0.6 H Indirect Bilirubin Not Reportable Neonat Total Bilirubin Not Reportable AST 81 H ALT 69 Alkaline Phosphatase 139 H Creatine Kinase 143 CK-MB (CK-2) Troponin I NT-Pro-B Natriuret Pep Total Protein 8.3 H Albumin 4.3 Lipase 176.3 Urine Color Urine Appearance Urine pH Ur Specific [place] Urine Protein Urine Glucose (UA) Urine Ketones Urine Blood Urine Nitrite Urine Bilirubin Urine Urobilinogen Ur Leukocyte Esterase Urine WBC (Auto) Urine RBC (Auto) Squamous Epi Cells Auto Urine Mucus (Auto) Urine Ascorbic Acid 02/03/17 02/03/17 02/03/17 08:58 09:50 11:25 WBC RBC Hgb Hct MCV MCH MCHC RDW Plt Count Seg Neutrophils % Lymphocytes % Monocytes % Eosinophils % Basophils % Absolute Neutrophils Absolute Lymphocytes Absolute Monocytes Absolute Eosinophils Absolute Basophils PT INR APTT Sodium Potassium Chloride Carbon Dioxide Anion Gap BUN Creatinine Est GFR ( Amer) Est GFR (Non-Af Amer) Glucose Calcium Total Bilirubin Direct Bilirubin Indirect Bilirubin Neonat Total Bilirubin AST ALT Alkaline Phosphatase Creatine Kinase CK-MB (CK-2) 1.74 Troponin I < 0.012 < 0.012 NT-Pro-B Natriuret Pep 3250 H Total Protein Albumin Lipase Urine Color YELLOW Urine Appearance CLEAR Urine pH 5.0 Ur Specific [place] 1.013 Urine Protein NEGATIVE Urine Glucose (UA) NEGATIVE Urine Ketones NEGATIVE Urine Blood NEGATIVE Urine Nitrite NEGATIVE Urine Bilirubin NEGATIVE Urine Urobilinogen NEGATIVE Ur Leukocyte Esterase NEGATIVE Urine WBC (Auto) 0 Urine RBC (Auto) 0 Squamous Epi Cells Auto <1 Urine Mucus (Auto) RARE Urine Ascorbic Acid NEGATIVE - Diagnostic Test Radiology reviewed: Reports reviewed Discharge - Discharge Clinical Impression: Epigastric pain, History of CHF (congestive heart failure), Renal insufficiency Dyspnea Qualifiers: Dyspnea type: unspecified Qualified Code(s): R06.00 - Dyspnea, unspecified Condition: Stable Disposition: HOME, SELF-CARE Instructions: Antacid Therapy ([facility]), Prilosec (Acid Pump Inhibitor) ([facility]), Gastritis ([facility]), Dyspnea, Nonspecific ([facility]), Kidney Function Abnormality ([facility]) Additional Instructions: Return immediately for any new or worsening symptoms Followup with your primary care provider, call today to make a followup appointment Follow-up with a preschool special education teacher for further evaluation of abnormal renal functioning, call for an appointment Call 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 Prescriptions: Omeprazole Magnesium [Prilosec Otc] 20 mg PO DAILY #15 tablet. Sucralfate [Carafate 1 gm Tablet] 1 gm PO ACHS #60 tablet Forms: Return to Work Referrals: LONNIE SNOWDEN MD [Primary Care Provider] - Follow up tomorrow Cassandra COLEY MD [ACTIVE STAFF] - Follow up in 3-5 days NIKHIL VENCES MD [NO LOCAL MD] - Follow up as needed
[2017-02-03] MEDS ORDERED: ASPIRIN 81 MG TABLET, CHEWABLE PO ONE (08:44)
[2017-02-03 08:57] LABS: ABSOLUTE EOSINOPHILS # (AUTO) 0.1 10^3/uL (0.0-0.6); ABSOLUTE LYMPHOCYTES (AUTO) 1.1 10^3/uL (0.5-4.7); ABSOLUTE MONOCYTES (AUTO) 0.7 10^3/uL (0.1-1.4); ABSOLUTE NEUT (AUTO) 4.7 10^3/uL (1.7-8.2); BASOPHILS % (AUTO) 0.5 % (0-2); EOSINOPHILS % (AUTO) 1.4 % (0-6); HEMATOCRIT 43.9 % (37.9-51.0); HEMOGLOBIN 14.2 g/dL (13.5-17.0); HGB HCT DIFFERENCE -1.3; LYMPHOCYTES % (AUTO) 16.5 % (13-45); MEAN CORPUSCULAR HEMOGLOBIN 28.7 pg (27.0-33.4); MEAN CORPUSCULAR HGB CONC 32.3 g/dL (32.0-36.0); MEAN CORPUSCULAR VOLUME 89 fl (80-97); MONOCYTES % (AUTO) 10.6 % (3-13); RED BLOOD COUNT 4.93 10^6/uL (4.35-5.55); RED CELL DISTRIBUTION WIDTH 15.9 % (11.5-14.0); WHITE BLOOD COUNT 6.6 10^3/uL (4.0-10.5)
[2017-02-03 08:59] LABS: PROTHROMBIN TIME 15.7 SEC (11.4-15.4)
--- NOTE | 2017-02-03 08:59 | RADIOLOGY REPORT (SQ) ---
EXAM DESCRIPTION: CHEST PA/LAT COMPLETED DATE/TIME: 02/03/2017 8:44 am REASON FOR STUDY: dyspnea COMPARISON: 01/27/2017. NUMBER OF VIEWS: Two view. TECHNIQUE: Frontal and lateral radiographic views of the chest acquired. LIMITATIONS: None. FINDINGS: LUNGS AND PLEURA: No opacities, masses or pneumothorax. No pleural effusion. MEDIASTINUM AND HILAR STRUCTURES: No masses. No contour abnormalities. HEART AND VASCULAR STRUCTURES: Heart enlarged without failure. Aorta normal for age. BONES: No acute findings. HARDWARE: Defibrillator. OTHER: No other significant finding. IMPRESSION: STABLE CARDIAC ENLARGEMENT. NO CHANGE. NO ACUTE FINDINGS. TECHNICAL DOCUMENTATION: JOB ID: [id number] [employer]- All Rights Reserved
[2017-02-03 09:00] LABS: PARTIAL THROMBOPLASTIN TIME 31.1 SEC (23.5-35.8)
[2017-02-03 09:31] LABS: ALANINE AMINOTRANSFERASE 69 U/L (21-72); ALBUMIN 4.3 g/dL (3.5-5.0); ALKALINE PHOSPHATASE 139 U/L (38-126); ANION GAP 14 (5-19); ASPARTATE AMINO TRANSFERASE 81 U/L (17-59); BILIRUBIN,DIRECT 0.6 mg/dL (0.0-0.4); BILIRUBIN,TOTAL 0.9 mg/dL (0.2-1.3); BLOOD UREA NITROGEN 41 mg/dL (7-20); CARBON DIOXIDE 26 mmol/L (22-30); CHLORIDE 104 mmol/L (98-107); CREATINE KINASE 143 U/L (55-170); CREATININE RESULT 2.03 mg/dL (0.52-1.25); GLUCOSE 141 mg/dL (75-110); LIPASE 176.3 U/L (23-300); POTASSIUM 4.6 mmol/L (3.6-5.0); SODIUM 143.8 mmol/L (137-145); TOTAL PROTEIN 8.3 g/dL (6.3-8.2)
[2017-02-03 09:42] LABS: CREATINE KINASE MB 1.74 ng/mL (<4.55)
[2017-02-03 09:44] LABS: TROPONIN I < 0.012 ng/mL
[2017-02-03] MEDS ORDERED: MAG HYDROX/AL HYDROX/SIMETH SUSP 30 ML UDCUP PO ONE (09:51)
[2017-02-03] MEDS ORDERED: LIDOCAINE 2% VISCOUS SOLN 20 ML UDCUP PO ONE (09:51)
[2017-02-03] MEDS ORDERED: FUROSEMIDE INJ/PF 20 MG/2 ML SDV IV ONE (09:59)
[2017-02-03 10:02] LABS: APPEARANCE,URINE CLEAR; BILIRUBIN,URINE NEGATIVE (NEGATIVE); GLUCOSE, URINE NEGATIVE (NEGATIVE); KETONES,URINE NEGATIVE (NEGATIVE); LEUKOCYTE ESTERASE,URINE NEGATIVE (NEGATIVE); NITRITE,URINE NEGATIVE (NEGATIVE); PROTEIN,URINE NEGATIVE (NEGATIVE); URINE SPECIFIC GRAVITY 1.013; UROBILINOGEN,URINE NEGATIVE mg/dL (<2.0)
[2017-02-03 12:54] VITALS: BP 134/102
--- NOTE | 2017-02-03 16:20 | EKG REPORT ---
SEVERITY:- ABNORMAL ECG - ATRIAL-PACED RHYTHM RBBB AND LAFB PVC : Confirmed by: Bre Quijano MD 03-Feb-2017 16:19:01
== END 2017-02-03 13:22 | disposition home or self-care (01) ==
LOC: ER 07:46
DX: R06.02 Shortness of breath (principal); N28.9 Disorder of kidney and ureter, unspecified; R42 Dizziness and giddiness; R58 Hemorrhage, not elsewhere classified; R10.13 Epigastric pain; R05 Cough; R07.89 Other chest pain; R60.0 Localized edema; I10 Essential (primary) hypertension; E11.9 Type 2 diabetes mellitus without complications; Z95.810 Presence of automatic (implantable) cardiac defibrillator; Z86.79 Personal history of other diseases of the circulatory system
CPT/HCPCS: 93005; 99285; 96374; 36415; 82553; 82550; 83690; 85025; 85610; 85730; 80053; 81001; 84484; 83880; 71020; 93010; J1940; J3490

== ENCOUNTER 2017-03-16 14:48 | Emergency (ER) | payer SELFPAY ==
--- NOTE | 2017-03-16 15:06 | ER Document Report ---
ED Medical Screen (RME) - General Chief Complaint: Breathing Difficulty Stated Complaint: DIFFICULTY BREATHING Time Seen by Provider: 03/16/17 15:04 Notes: Patient states for the last several days he is becoming increasingly more short of breath. He has a mild dry cough but no other cold symptoms. He states he does have a history of congestive heart failure and has been taking all his medications. He denies any history of COPD or asthma/emphysema. Patient states he does not feel like he has been retaining fluid. Patient states he has to sit sleeping up. He denies any chest pain. TRAVEL OUTSIDE OF THE [place] IN LAST 30 DAYS: No - Related Data Allergies/Adverse Reactions: No Known Allergies Allergy (Verified 03/16/17 14:58) Past Medical History - Social History Chew tobacco use (# tins/day): No Frequency of alcohol use: None Drug Abuse: None - Past Medical History Cardiac Medical History: Reports: Hx Congestive Heart Failure, Hx Hypercholesterolemia, Hx Hypertension Pulmonary Medical History: Reports: Hx Pneumonia Denies: Hx Tuberculosis Endocrine Medical History: Reports: Hx Diabetes Mellitus Type 2 Renal/ Medical History: Denies: Hx Peritoneal Dialysis Musculoskeltal Medical History: Reports Hx Arthritis Traumatic Medical History: Reports: Hx Fractures - foot 30 yrs ago Past Surgical History: Reports: Hx Cardiac Surgery - paced/defib x2, Hx Pacemaker - Immunizations Hx Diphtheria, Pertussis, Tetanus Vaccination: No - unk Physical Exam - Vital signs Vitals: Temp Pulse Resp BP Pulse Ox 97.7 F 60 18 126/92 H 99 03/16/17 14:53 03/16/17 14:53 03/16/17 14:53 03/16/17 14:53 03/16/17 14:53 Course - Vital Signs Vital signs: Temp Pulse Resp BP Pulse Ox 97.7 F 60 18 126/92 H 99 03/16/17 14:53 03/16/17 14:53 03/16/17 14:53 03/16/17 14:53 03/16/17 14:53
[2017-03-16 15:42] LABS: ABSOLUTE BASOPHILS # (AUTO) 0.1 10^3/uL (0.0-0.2); ABSOLUTE EOSINOPHILS # (AUTO) 0.1 10^3/uL (0.0-0.6); ABSOLUTE LYMPHOCYTES (AUTO) 1.4 10^3/uL (0.5-4.7); ABSOLUTE MONOCYTES (AUTO) 1.2 10^3/uL (0.1-1.4); ABSOLUTE NEUT (AUTO) 5.9 10^3/uL (1.7-8.2); BASOPHILS % (AUTO) 0.6 % (0-2); EOSINOPHILS % (AUTO) 0.7 % (0-6); HEMATOCRIT 40.6 % (37.9-51.0); HEMOGLOBIN 13.5 g/dL (13.5-17.0); HGB HCT DIFFERENCE -0.1; LYMPHOCYTES % (AUTO) 15.9 % (13-45); MEAN CORPUSCULAR HEMOGLOBIN 28.7 pg (27.0-33.4); MEAN CORPUSCULAR HGB CONC 33.3 g/dL (32.0-36.0); MEAN CORPUSCULAR VOLUME 86 fl (80-97); MONOCYTES % (AUTO) 13.9 % (3-13); RED BLOOD COUNT 4.71 10^6/uL (4.35-5.55); RED CELL DISTRIBUTION WIDTH 16.5 % (11.5-14.0); SEGMENTED NEUTROPHILS % (AUTO) 68.9 % (42-78); WHITE BLOOD COUNT 8.6 10^3/uL (4.0-10.5)
[2017-03-16 15:55] LABS: ALANINE AMINOTRANSFERASE 230 U/L (21-72); ALBUMIN 4.4 g/dL (3.5-5.0); ALKALINE PHOSPHATASE 178 U/L (38-126); ANION GAP 17 (5-19); ASPARTATE AMINO TRANSFERASE 206 U/L (17-59); BILIRUBIN,DIRECT 0.8 mg/dL (0.0-0.4); BILIRUBIN,TOTAL 1.3 mg/dL (0.2-1.3); BLOOD UREA NITROGEN 44 mg/dL (7-20); CARBON DIOXIDE 20 mmol/L (22-30); CHLORIDE 103 mmol/L (98-107); CREATININE RESULT 2.02 mg/dL (0.52-1.25); GLUCOSE 108 mg/dL (75-110); SODIUM 139.9 mmol/L (137-145); TOTAL PROTEIN 8.4 g/dL (6.3-8.2)
[2017-03-16 16:10] LABS: TROPONIN I 0.051 ng/mL
--- NOTE | 2017-03-16 16:18 | RADIOLOGY REPORT (SQ) ---
EXAM DESCRIPTION: CHEST PA/LAT COMPLETED DATE/TIME: 03/16/2017 4:01 pm REASON FOR STUDY: sob COMPARISON: None. EXAM PARAMETERS: NUMBER OF VIEWS: two views TECHNIQUE: Digital Frontal and Lateral radiographic views of the chest acquired. RADIATION DOSE: NA LIMITATIONS: none FINDINGS: LUNGS AND PLEURA: Left perihilar stranding versus subsegmental atelectasis. A small porti on of the left heart border is blurred by this finding. MEDIASTINUM AND HILAR STRUCTURES: No masses or contour abnormalities. HEART AND VASCULAR STRUCTURES: Cardiomegaly with pulmonary vascular congestion but no CHF. BONES: No acute findings. HARDWARE: Pacemaker/defibrillator. OTHER: No other significant finding. IMPRESSION: There is left perihilar opacification that is obscured by the pacemaker/defibrillator on prior studies. This could represent localized infiltrate versus subsegmental atelectasis versus sca rring. Neoplasm cannot be excluded. TECHNICAL DOCUMENTATION: JOB ID: [id number] [employer]- All Rights Reserved
[2017-03-16] MEDS ORDERED: FUROSEMIDE 40 MG TABLET PO ONE (17:10)
--- NOTE | 2017-03-16 17:11 | ER Document Report ---
ED General - General Chief Complaint: Breathing Difficulty Stated Complaint: DIFFICULTY BREATHING Time Seen by Provider: 03/16/17 15:04 TRAVEL OUTSIDE OF THE [place] IN LAST 30 DAYS: No - HPI Patient complains to provider of: Difficulty breathing Notes: Patient coming in today for evaluation difficulty breathing. Patient states dyspnea on exertion. Patient states a history of CHF. Patient states he is currently on Lasix 20 mg in the morning states compliance with his medication patient however is not monitoring his weights is not on a fluid restriction has not been monitoring his salt in his diet. Patient states over last few days has increased the amount of lunch meat that he has been eating. Patient denies any chest pain abdominal pain fevers chills nausea vomiting. Upon my evaluation patient is resting comfortably no signs of hypoxia. - Related Data Allergies/Adverse Reactions: No Known Allergies Allergy (Verified 03/16/17 14:58) Home Medications: Current Home Medications Amiodarone HCl [Cordarone 200 mg Tablet] 200 mg PO DAILY 03/16/17 [History] Eplerenone [Eplerenone] 50 mg PO DAILY 03/16/17 [History] Prednisone [Prednisone] 1 mg PO DAILY 03/16/17 [History] Past Medical History - Social History Smoking Status: Never Smoker Chew tobacco use (# tins/day): No Frequency of alcohol use: None Drug Abuse: None Family History: Reviewed & Not Pertinent Patient has suicidal ideation: No - Past Medical History Cardiac Medical History: Reports: Hx Congestive Heart Failure, Hx Hypercholesterolemia, Hx Hypertension Pulmonary Medical History: Reports: Hx Pneumonia Denies: Hx Tuberculosis Endocrine Medical History: Reports: Hx Diabetes Mellitus Type 2 Renal/ Medical History: Denies: Hx Peritoneal Dialysis Musculoskeltal Medical History: Reports Hx Arthritis Traumatic Medical History: Reports: Hx Fractures - foot 30 yrs ago Past Surgical History: Reports: Hx Cardiac Surgery - paced/defib x2, Hx Pacemaker - Immunizations Hx Diphtheria, Pertussis, Tetanus Vaccination: No - unk Review of Systems - Review of Systems Constitutional: No symptoms reported EENT: No symptoms reported Cardiovascular: No symptoms reported Respiratory: Short of breath Gastrointestinal: No symptoms reported Genitourinary: No symptoms reported Male Genitourinary: No symptoms reported Musculoskeletal: No symptoms reported Skin: No symptoms reported Hematologic/Lymphatic: No symptoms reported Neurological/Psychological: No symptoms reported -: Yes All other systems reviewed and negative Physical Exam - Vital signs Vitals: Temp Pulse Resp BP Pulse Ox 97.7 F 60 18 126/92 H 99 03/16/17 14:53 03/16/17 14:53 03/16/17 14:53 03/16/17 14:53 03/16/17 14:53 Interpretation: Normal - General General appearance: Appears well, Alert - HEENT Head: Normocephalic, Atraumatic Eyes: Normal Pupils: PERRL - Respiratory Respiratory status: No respiratory distress Chest status: Nontender Breath sounds: Rales Chest palpation: Normal - Cardiovascular Rhythm: Regular Heart sounds: Normal auscultation Murmur: No - Abdominal Inspection: Normal Distension: No distension Bowel sounds: Normal Tenderness: Nontender Organomegaly: No organomegaly - Back Back: Normal, Nontender - Extremities General upper extremity: Normal inspection, Nontender, Normal color, Normal ROM , Normal temperature General lower extremity: Normal inspection, Nontender, Normal color, Normal ROM , Normal temperature, Normal weight bearing. No: Meghan's sign - Neurological Neuro grossly intact: Yes Cognition: Normal Orientation: AAOx4 [place] Coma Scale Eye Opening: Spontaneous Nish Coma Scale Verbal: Oriented Nish Coma Scale Motor: Obeys Commands [place] Coma Scale Total: 15 Speech: Normal Motor strength normal: LUE, RUE, LLE, RLE Sensory: Normal - Psychological Associated symptoms: Normal affect, Normal mood - Skin Skin Temperature: Warm Skin Moisture: Dry Skin Color: Normal Course - Re-evaluation Re-evalutation: 03/16/17 22:30 Patient coming in with slight CHF exacerbation. Otherwise laboratory values not show any concerning pathology. Encouraged patient follow-up with his primary care physician I will put a consult in for social science manager contact the patient see if he can be evaluated quickly. Patient will increase his Lasix dose from 20-40 patient also was educated about monitoring his weight and also monitoring amount of salt that he ingest. Patient is understanding of signs of extremis patient will be discharged home - Vital Signs Vital signs: Temp Pulse Resp BP Pulse Ox 97.8 F 60 21 H 120/75 97 03/16/17 17:30 03/16/17 14:53 03/16/17 17:30 03/16/17 17:30 03/16/17 17:30 - Laboratory Result Diagrams: 03/16/17 15:20 03/16/17 15:20 Laboratory results interpreted by me: 03/16/17 03/16/17 03/16/17 15:20 15:20 15:20 RDW 16.5 H Plt Count 124 L Monocytes % 13.9 H Carbon Dioxide 20 L BUN 44 H Creatinine 2.02 H Est GFR ( Amer) 41 L Est GFR (Non-Af Amer) 34 L Direct Bilirubin 0.8 H AST 206 H ALT 230 H Alkaline Phosphatase 178 H NT-Pro-B Natriuret Pep 3360 H Total Protein 8.4 H Discharge - Discharge Clinical Impression: Congestive heart failure Qualifiers: Congestive heart failure type: unspecified congestive heart failure type Congestive heart failure chronicity: acute on chronic Qualified Code(s): I50.9 - Heart failure, unspecified Condition: Good Disposition: HOME, SELF-CARE Instructions: Congestive Heart Failure ([facility]) Additional Instructions: More likely your shortness of breath that is worsening due to your increase in salt intake. I would recommend that we start you on your Lasix at 40 mg daily for the next 7 days. Please monitor your weights in the morning I will have her social science manager contact her PCP to try to schedule earlier appointment. Return to the ER symptoms worsen. Continue your other medications as prescribed. You can restart your Lasix at 20 mg after 1 week. Your laboratory studies today also shows slight increase in your liver function more likely this is related to your congestive heart failure. This is something that your primary care physician will need to continue to monitor. Prescriptions: Furosemide [Lasix 40 mg Tablet] 40 mg PO QAM #7 tablet
[2017-03-16 17:45] VITALS: BP 120/75
--- NOTE | 2017-03-16 19:11 | EKG REPORT ---
SEVERITY:- ABNORMAL ECG - ATRIAL-VENTRICULAR DUAL-PACED COMPLEXES : Confirmed by: Gregory Calvillo MD 16-Mar-2017 19:10:50
== END 2017-03-16 17:47 | disposition home or self-care (01) ==
LOC: ER 14:48
DX: I50.9 Heart failure, unspecified (principal); R06.00 Dyspnea, unspecified; I11.0 Hypertensive heart disease with heart failure; E78.00 Pure hypercholesterolemia, unspecified; E11.9 Type 2 diabetes mellitus without complications; Z95.810 Presence of automatic (implantable) cardiac defibrillator
CPT/HCPCS: 36415; 71020; 80053; 83880; 84484; 85025; 93005; 93010; 99285

== ENCOUNTER → 2017-03-30 | Outpatient (CLI) | payer OTHER ==
[2017-03-30 11:07] LABS: ALANINE AMINOTRANSFERASE 82 U/L (21-72); ALBUMIN 4.6 g/dL (3.5-5.0); ALKALINE PHOSPHATASE 173 U/L (38-126); ANION GAP 15 (5-19); ASPARTATE AMINO TRANSFERASE 45 U/L (17-59); BILIRUBIN,DIRECT 0.6 mg/dL (0.0-0.4); BLOOD UREA NITROGEN 42 mg/dL (7-20); CALCIUM 9.3 mg/dL (8.4-10.2); CARBON DIOXIDE 26 mmol/L (22-30); CHLORIDE 104 mmol/L (98-107); CHOLESTEROL 186.03 mg/dL (0-200); CREATININE RESULT 1.81 mg/dL (0.52-1.25); Direct HDL 58 mg/dL (>40); GLUCOSE 128 mg/dL (75-110); POTASSIUM 4.4 mmol/L (3.6-5.0); SODIUM 144.8 mmol/L (137-145); TOTAL PROTEIN 9.4 g/dL (6.3-8.2); TRIGLYCERIDES 68 mg/dL (<150)
[2017-03-30 11:18] LABS: DIRECT LDL 100 mg/dL (<100)
[2017-03-31 10:38] LABS: HEPATITIS C VIRUS AB <0.1 s/co ratio (0.0-0.9)
== END ==
LOC: CCC 09:56
DX: I11.0 Hypertensive heart disease with heart failure (principal)
CPT/HCPCS: 36415; 80053; 80061; 83036; 83880; 84443; 86803; 86804; 87340

== ENCOUNTER 2017-06-09 12:52 | Emergency (ER) | payer OTHER ==
--- NOTE | 2017-06-09 13:59 | ER Document Report ---
ED Medical Screen (RME) - General Chief Complaint: Shortness Of Breath Stated Complaint: SHORTNESS OF BREATH Time Seen by Provider: 06/09/17 13:58 Notes: pt presents with cp/sob TRAVEL OUTSIDE OF THE [place] IN LAST 30 DAYS: No - Related Data Allergies/Adverse Reactions: No Known Allergies Allergy (Verified 03/16/17 14:58) Past Medical History - Social History Chew tobacco use (# tins/day): No Frequency of alcohol use: None Drug Abuse: None - Past Medical History Cardiac Medical History: Reports: Hx Congestive Heart Failure, Hx Hypercholesterolemia, Hx Hypertension Pulmonary Medical History: Reports: Hx Pneumonia Denies: Hx Tuberculosis Endocrine Medical History: Reports: Hx Diabetes Mellitus Type 2 Renal/ Medical History: Denies: Hx Peritoneal Dialysis Musculoskeltal Medical History: Reports Hx Arthritis Traumatic Medical History: Reports: Hx Fractures - foot 30 yrs ago Past Surgical History: Reports: Hx Cardiac Surgery - paced/defib x2, Hx Pacemaker - Immunizations Hx Diphtheria, Pertussis, Tetanus Vaccination: No - unk Physical Exam - Vital signs Vitals: Temp Pulse Resp BP Pulse Ox 98.4 F 57 L 20 102/66 96 06/09/17 13:33 06/09/17 13:33 06/09/17 13:33 06/09/17 13:33 06/09/17 13:33 Course - Vital Signs Vital signs: Temp Pulse Resp BP Pulse Ox 98.4 F 57 L 20 102/66 96 06/09/17 13:33 06/09/17 13:33 06/09/17 13:33 06/09/17 13:33 06/09/17 13:33
[2017-06-09 15:01] LABS: ABSOLUTE BASOPHILS # (AUTO) 0.1 10^3/uL (0.0-0.2); ABSOLUTE EOSINOPHILS # (AUTO) 0.1 10^3/uL (0.0-0.6); ABSOLUTE MONOCYTES (AUTO) 0.9 10^3/uL (0.1-1.4); ABSOLUTE NEUT (AUTO) 5.3 10^3/uL (1.7-8.2); EOSINOPHILS % (AUTO) 1.9 % (0-6); HEMATOCRIT 39.6 % (37.9-51.0); HEMOGLOBIN 13.2 g/dL (13.5-17.0); MEAN CORPUSCULAR HEMOGLOBIN 28.8 pg (27.0-33.4); MEAN CORPUSCULAR HGB CONC 33.5 g/dL (32.0-36.0); MEAN CORPUSCULAR VOLUME 86 fl (80-97); MONOCYTES % (AUTO) 12.1 % (3-13); RED CELL DISTRIBUTION WIDTH 16.7 % (11.5-14.0); WHITE BLOOD COUNT 7.4 10^3/uL (4.0-10.5)
--- NOTE | 2017-06-09 15:08 | RADIOLOGY REPORT (SQ) ---
EXAM DESCRIPTION: CHEST PA/LAT COMPLETED DATE/TIME: 06/09/2017 2:55 pm REASON FOR STUDY: sob COMPARISON: 03/16/2017 and 02/03/2017. CT chest dated 12/21/2016. NUMBER OF VIEWS: Two view. TECHNIQUE: Frontal and lateral radiographic views of the chest acquired. LIMITATIONS: None. FINDINGS: LUNGS AND PLEURA: Chronic scarring in the perihilar left lung, seen on previous chest x-ra y and CT, partially obscured by the defibrillator unit. No opacities, masses or pneumothorax. No ple ural effusion. MEDIASTINUM AND HILAR STRUCTURES: No masses. No contour abnormalities. HEART AND VASCULAR STRUCTURES: Heart enlarged without failure. Aorta normal for age. BONES: No acute findings. HARDWARE: Defibrillator. OTHER: No other significant finding. IMPRESSION: CARDIAC ENLARGEMENT WITHOUT FAILURE. CHRONIC SCARRING IN THE LEFT LUNG. NO APPARENT AC HUGHES FINDINGS. TECHNICAL DOCUMENTATION: JOB ID: [id number] [employer]- All Rights Reserved
[2017-06-09 15:19] LABS: ALANINE AMINOTRANSFERASE 102 U/L (21-72); ALBUMIN 4.3 g/dL (3.5-5.0); ALKALINE PHOSPHATASE 141 U/L (38-126); ANION GAP 15 (5-19); ASPARTATE AMINO TRANSFERASE 89 U/L (17-59); BILIRUBIN,DIRECT 0.7 mg/dL (0.0-0.4); BILIRUBIN,TOTAL 1.2 mg/dL (0.2-1.3); BLOOD UREA NITROGEN 37 mg/dL (7-20); CALCIUM 8.9 mg/dL (8.4-10.2); CARBON DIOXIDE 24 mmol/L (22-30); CHLORIDE 103 mmol/L (98-107); CREATININE RESULT 2.14 mg/dL (0.52-1.25); GLUCOSE 113 mg/dL (75-110); POTASSIUM 4.4 mmol/L (3.6-5.0); SODIUM 142.4 mmol/L (137-145)
--- NOTE | 2017-06-09 20:17 | ER Document Report ---
ED General - General Chief Complaint: Shortness Of Breath Stated Complaint: SHORTNESS OF BREATH Time Seen by Provider: 06/09/17 13:58 Mode of Arrival: Ambulatory Information source: Patient Notes: This is a 61-year-old man with a history of CHF (with pacemaker), arthritis, hypertension, diabetes. The patient presents to the emergency room with shortness of breath chronically since February 02. Patient denies any chest pain or shortness of breath. He does state he may have gained a few pounds over the last week. TRAVEL OUTSIDE OF THE [place] IN LAST 30 DAYS: No - HPI Onset: Last week Onset/Duration: Gradual Quality of pain: No pain Severity: None Pain Level: Denies Associated symptoms: Shortness of breath. denies: Chills, Fever Exacerbated by: Denies Relieved by: Denies Similar symptoms previously: Yes Recently seen / treated by doctor: Yes - Related Data Allergies/Adverse Reactions: No Known Allergies Allergy (Verified 03/16/17 14:58) Past Medical History - General Information source: Patient - Social History Smoking Status: Former Smoker Cigarette use (# per day): No Chew tobacco use (# tins/day): No Frequency of alcohol use: None Drug Abuse: None Lives with: Family Family History: Reviewed & Not Pertinent Patient has suicidal ideation: No Patient has homicidal ideation: No - Past Medical History Cardiac Medical History: Reports: Hx Congestive Heart Failure, Hx Hypercholesterolemia, Hx Hypertension Pulmonary Medical History: Reports: Hx Pneumonia Denies: Hx Tuberculosis Endocrine Medical History: Reports: Hx Diabetes Mellitus Type 2 Renal/ Medical History: Denies: Hx Peritoneal Dialysis Musculoskeltal Medical History: Reports Hx Arthritis Traumatic Medical History: Reports: Hx Fractures - foot 30 yrs ago Past Surgical History: Reports: Hx Cardiac Surgery - paced/defib x2, Hx Pacemaker - Immunizations Hx Diphtheria, Pertussis, Tetanus Vaccination: No - unk Review of Systems - Review of Systems Constitutional: denies: Chills, Fever EENT: No symptoms reported Cardiovascular: No symptoms reported Respiratory: See HPI Gastrointestinal: No symptoms reported Genitourinary: No symptoms reported Male Genitourinary: No symptoms reported Musculoskeletal: No symptoms reported Skin: No symptoms reported Hematologic/Lymphatic: No symptoms reported Neurological/Psychological: No symptoms reported Physical Exam - Vital signs Vitals: Temp Pulse Resp BP Pulse Ox 98.4 F 57 L 20 102/66 96 06/09/17 13:33 06/09/17 13:33 06/09/17 13:33 06/09/17 13:33 06/09/17 13:33 Notes: Physical exam: GENERAL: 61-year-old man, alert and oriented 3, no acute distress. The patient looks relatively good. HEAD: Atraumatic, normocephalic. EYES: Pupils equal round and reactive to light, extraocular movements intact, sclera anicteric, conjunctiva are normal. ENT: TMs normal, nares patent, oropharynx clear without exudates. Moist mucous membranes. NECK: Normal range of motion, supple without obvious mass or JVD. LUNGS: Breath sounds clear to auscultation bilaterally and equal. No wheezes rales or rhonchi. HEART: Regular rate and rhythm without murmurs, rubs or gallops. ABDOMEN: Soft, normoactive bowel sounds. No tenderness to palpation. No guarding, no rebound. No masses appreciated. EXTREMITIES: Mild lower extremity edema. NEUROLOGICAL: Cranial nerves II through XII grossly intact. Normal speech, moving all extremities. PSYCH: Normal mood, normal affect. SKIN: Warm, Dry, normal turgor, no rashes or lesions noted. Course - Vital Signs Vital signs: Temp Pulse Resp BP Pulse Ox 98.0 F 59 L 20 118/95 H 99 06/09/17 18:43 06/09/17 20:34 06/09/17 20:34 06/09/17 20:34 06/09/17 20:34 - Laboratory Result Diagrams: 06/09/17 14:46 06/09/17 14:46 Laboratory results interpreted by me: 06/09/17 06/09/17 14:46 14:46 Hgb 13.2 L RDW 16.7 H BUN 37 H Creatinine 2.14 H Est GFR ( Amer) 38 L Est GFR (Non-Af Amer) 31 L Glucose 113 H Direct Bilirubin 0.7 H AST 89 H ALT 102 H Alkaline Phosphatase 141 H Total Protein 9.0 H - Diagnostic Test Radiology reviewed: Image reviewed, Reports reviewed - Chest x-ray shows cardiomegaly without obvious infiltrate or failure. - EKG Interpretation by Me Rhythm: Other - EKG shows a paced rhythm with a ventricular rate of 64. There is 100% capture. Discharge - Discharge Clinical Impression: CHF Condition: Stable Disposition: HOME, SELF-CARE Additional Instructions: As we discussed, your labs look pretty good. Your chest x-ray looks reasonable. I do believe clinically you may be a little fluid overload. Would like you to double up on the Lasix for the next 2 days. I would like you to follow-up at the [facility] on Wednesday.
--- NOTE | 2017-06-09 20:17 | EKG REPORT ---
SEVERITY:- ABNORMAL ECG - SINUS RHYTHM WITH V PACING. OLD ANTERIOR CT. INTRAVENTRICULAR CONDUCTION DELAY : Confirmed by: Gregory Calvillo MD 09-Jun-2017 20:16:55
[2017-06-09 20:34] VITALS: BP 118/95
== END 2017-06-09 20:34 | disposition home or self-care (01) ==
LOC: ER 12:52
DX: I11.0 Hypertensive heart disease with heart failure (principal); I50.9 Heart failure, unspecified; R06.02 Shortness of breath; E11.9 Type 2 diabetes mellitus without complications; Z87.891 Personal history of nicotine dependence; Z95.810 Presence of automatic (implantable) cardiac defibrillator
CPT/HCPCS: 36415; 71020; 80053; 84484; 85025; 93005; 93010; 99285

== ENCOUNTER 2017-06-21 03:21 | Inpatient (IN) | payer OTHER ==
--- NOTE | 2017-06-21 04:07 | ER Document Report ---
ED General - General Chief Complaint: Passed Out Prior to Arrival Stated Complaint: FALL LEG PAIN Time Seen by Provider: 06/21/17 03:50 Notes: Patient is a 62 year old male who presents to the ED complaining of syncopal episode at [employer] this afternoon around 1230pm. States he was walking out of [employer] when he started getting lightheaded, remembers reaching for the banister and then blacked out. Unsure of how long he was down for but remembers being awakened by [employer] members. At that time he declined to come to the ED. He does admit to nonproductive cough for 3 weeks wihtout fever, chills, chest pain. ROS (+) bilateral knee pain with h/o OA. Denies headache, dizzyness, lightheaded, vision changes, halos, light or sound sensitivity [facility]CP [facility] Last stress test was 2 years ago Past medical history significant for bilateral osteoarthritis in his knees, non- insulin-dependent diabetes, hypertension, chronic kidney disease, alcoholic fatty liver disease, CHF with unknown ejection fraction, atrial fibrillation Past surgical history significant for pacemaker and ICD social history significant for former tobacco user, former alcohol user. Denies any drug use. Home medications include 200 mg twice daily of amiodarone, 20 mg Lasix once a day, 1 mg of prednisone once a day, Carafate 1 g before meals at bedtime, 200 mg of extended release metoprolol. TRAVEL OUTSIDE OF THE [place] IN LAST 30 DAYS: No - Related Data Allergies/Adverse Reactions: No Known Allergies Allergy (Verified 06/21/17 03:32) Past Medical History - Social History Smoking Status: Former Smoker Family History: Reviewed & Not Pertinent - Past Medical History Cardiac Medical History: Reports: Hx Congestive Heart Failure, Hx Hypercholesterolemia, Hx Hypertension Pulmonary Medical History: Reports: Hx Pneumonia Denies: Hx Tuberculosis Endocrine Medical History: Reports: Hx Diabetes Mellitus Type 2 Renal/ Medical History: Denies: Hx Peritoneal Dialysis Musculoskeltal Medical History: Reports Hx Arthritis Traumatic Medical History: Reports: Hx Fractures - foot 30 yrs ago Past Surgical History: Reports: Hx Cardiac Surgery - paced/defib x2, Hx Pacemaker - Immunizations Hx Diphtheria, Pertussis, Tetanus Vaccination: No - unk Review of Systems - Review of Systems Constitutional: No symptoms reported Cardiovascular: See HPI Respiratory: See HPI Gastrointestinal: No symptoms reported Musculoskeletal: See HPI -: Yes All other systems reviewed and negative Physical Exam - Vital signs Vitals: Temp Pulse Resp BP Pulse Ox 97.4 F 59 L 18 126/84 H 100 06/21/17 03:31 06/21/17 03:31 06/21/17 03:31 06/21/17 03:31 06/21/17 03:31 - Notes Notes: PHYSICAL EXAM GENERAL: Alert, interacts well. NECK: Full range of motion. Supple. Trachea midline. LUNGS: Clear to auscultation bilaterally, no wheezes, rales, or rhonchi. No respiratory distress. HEART: Regular rate and rhythm. No murmurs, gallops, or rubs. ABDOMEN: Soft, nondistended, nontender. No guarding, rebound, or rigidity.. Bowel sounds present in all 4 quadrants. EXTREMITIES: Moves all 4 extremities spontaneously. 1+ pitting edema bilateral, radial and dorsalis pedis pulses 2/4 bilaterally. No cyanosis. NEUROLOGICAL: Alert and oriented x4. Normal speech. PSYCH: Normal affect, normal mood. SKIN: Warm, dry, normal turgor. No rashes or lesions noted. Course - Re-evaluation Re-evalutation: 06/21/17 06:05 Patient is a 62 year old male with presentation for syncope and bilateral knee pain after fall. chemistry shows concern for acute on chronic renal failure without CXR evidence of fluid overload despite elevated bnp likely due to dehydration. orthostatics stable. Case reviewed with hospitalist Dr alvarado who has accepted the patient for admission given difficulty to secure adequate follow up and presentation today. patient agreeable with plan - Vital Signs Vital signs: Temp Pulse Resp BP Pulse Ox 97.4 F 60 19 122/91 H 100 06/21/17 03:31 06/21/17 06:06 06/21/17 07:01 06/21/17 07:01 06/21/17 07:01 - Laboratory Result Diagrams: 06/21/17 04:20 06/21/17 04:20 Laboratory results interpreted by me: 06/21/17 06/21/17 06/21/17 04:20 04:20 04:20 Hgb 13.0 L RDW 16.4 H Monocytes % (Manual) 14 H BUN 54 H Creatinine 2.81 H Est GFR ( Amer) 28 L Est GFR (Non-Af Amer) 23 L Glucose 144 H Total Bilirubin 1.5 H Direct Bilirubin 0.9 H AST 68 H Alkaline Phosphatase 201 H NT-Pro-B Natriuret Pep 7030 H Total Protein 9.3 H - Diagnostic Test Radiology reviewed: Image reviewed, Reports reviewed - EKG Interpretation by Me EKG shows normal: Sinus rhythm Rate: Normal [place]/QRS: IVCD When compared to previous EKG there are: No significant change Discharge - Discharge Clinical Impression: Acute on chronic renal failure Qualifiers: Acute renal failure type: unspecified Chronic kidney disease stage: unspecified stage Qualified Code(s): N17.9 - Acute kidney failure, unspecified Condition: Stable Disposition: ADMITTED INPATIENT Admitting Provider: [facility] Unit Admitted: Telemetry
[2017-06-21 04:36] LABS: HEMATOCRIT 39.3 % (37.9-51.0); HGB HCT DIFFERENCE -0.3; MEAN CORPUSCULAR HEMOGLOBIN 29.2 pg (27.0-33.4); MEAN CORPUSCULAR HGB CONC 33.1 g/dL (32.0-36.0); MEAN CORPUSCULAR VOLUME 88 fl (80-97); RED BLOOD COUNT 4.47 10^6/uL (4.35-5.55); RED CELL DISTRIBUTION WIDTH 16.4 % (11.5-14.0); WHITE BLOOD COUNT 9.9 10^3/uL (4.0-10.5)
[2017-06-21 04:51] LABS: ALANINE AMINOTRANSFERASE 67 U/L (21-72); ALBUMIN 4.3 g/dL (3.5-5.0); ALKALINE PHOSPHATASE 201 U/L (38-126); ANION GAP 18 (5-19); ASPARTATE AMINO TRANSFERASE 68 U/L (17-59); BILIRUBIN,DIRECT 0.9 mg/dL (0.0-0.4); BILIRUBIN,TOTAL 1.5 mg/dL (0.2-1.3); BLOOD UREA NITROGEN 54 mg/dL (7-20); CALCIUM 9.3 mg/dL (8.4-10.2); CARBON DIOXIDE 26 mmol/L (22-30); CHLORIDE 100 mmol/L (98-107); CREATINE KINASE 115 U/L (55-170); CREATININE RESULT 2.81 mg/dL (0.52-1.25); GLUCOSE 144 mg/dL (75-110); POTASSIUM 4.6 mmol/L (3.6-5.0); TOTAL PROTEIN 9.3 g/dL (6.3-8.2)
--- NOTE | 2017-06-21 04:54 | RADIOLOGY REPORT (SQ) ---
EXAM DESCRIPTION: CT HEAD WITHOUT CLINICAL HISTORY: 62 years Male, unwitnessed syncope COMPARISON: None. TECHNIQUE: This exam was performed according to our departmental dose-optimization program, which includes automated exposure control, adjustment of the mA and/or kV according to patient size and/or use of iterative reconstruction technique. FINDINGS: Mild white matter microangiopathy. Atherosclerosis. No evidence of mass, mass effect, or midline shift. No hemorrhage or infarct. Extra-axial structures appear otherwise grossly intact. IMPRESSION: No acute findings.
[2017-06-21 04:57] LABS: ABSOLUTE EOSINOPHILS# (MANUAL) 0.1 10^3/uL (0.0-0.6); BASOPHILS % (MANUAL) 0 % (0-2); EOSINOPHILS % (MANUAL) 1 % (0-6); LYMPHOCYTES % (MANUAL) 13 % (13-45); TOTAL CELLS COUNTED 100
[2017-06-21 04:59] LABS: ANISOCYTOSIS 1+; OVALOCYTES SLIGHT; POLYCHROMASIA SLIGHT; TARGET CELLS SLIGHT
[2017-06-21 05:03] LABS: CREATINE KINASE MB 1.03 ng/mL (<4.55); TROPONIN I 0.02 ng/mL
--- NOTE | 2017-06-21 05:18 | RADIOLOGY REPORT (SQ) ---
EXAM DESCRIPTION: CHEST SINGLE VIEW CLINICAL HISTORY: 62 years, Male, cough, shortness of breath, h/o CHF COMPARISON: 06/09/2017. LIMITATIONS: None. FINDINGS: Moderate streakiness of the left upper hemithorax, moderate to severe enlargement of the cardiac silhouette, moderate central pulmonary edema pattern, left cardiac stimulation device and leads. IMPRESSION: No significant interval change. 2011 [employer]- All Rights Reserved
[2017-06-21 05:20] LABS: VENOUS BLOOD BASE EXCESS 1.7 mmol/L; VENOUS BLOOD PCO2 51.8 mmHg (35-63); VENOUS BLOOD PH 7.35 (7.30-7.42)
--- NOTE | 2017-06-21 05:21 | RADIOLOGY REPORT (SQ) ---
EXAM DESCRIPTION: KNEE BILATERAL 1-2 VIEWS CLINICAL HISTORY: 62 years, Male, fall today, B/l knee pain COMPARISON: None. NUMBER OF VIEWS: Five TECHNIQUE: Bilateral frontal and lateral LIMITATIONS: None. FINDINGS: No evidence of acute fracture or dislocation. 2.1 cm ossicular fragment and inferior right patellar enthesophyte, small right knee effusion, 1.6 cm well-corticated indolent appearing calcification at the lateral aspect of the right distal upper leg at the level of the distal femoral diametaphysis,, 2.3 cm fragmented inferior left patellar enthesophyte, small-moderate left knee effusion, mild-moderate osteoarthritis of bilateral knees. Atherosclerosis. IMPRESSION: Small moderate bilateral knee effusions. Mild/moderate osteoarthritis. 2011 [employer]- All Rights Reserved
[2017-06-21] MEDS ORDERED: ACETAMINOPHEN 325 MG TABLET PO ONE (05:27)
[2017-06-21] MEDS ORDERED: HYDROCODONE/ACETAMINOPHEN 7.5-325 MG TABLET PO ONE (06:05)
[2017-06-21] MEDS ORDERED: MAGNESIUM HYDROXIDE SUSP 30 ML UDCUP PO PRN (06:18)
[2017-06-21] MEDS ORDERED: DEXTROSE 40% GEL 15 GM TUBE PO PRN ×2 (06:39)
[2017-06-21] MEDS ORDERED: DEXTROSE 50%-WATER 25 GM/50 ML DISP.SYRIN IV PRN ×2 (06:39)
[2017-06-21] MEDS ORDERED: GLUCAGON,HUMAN RECOMB 1 MG INJ IM PRN (06:39)
[2017-06-21 06:41] LABS: APPEARANCE,URINE CLEAR; BILIRUBIN,URINE NEGATIVE (NEGATIVE); GLUCOSE, URINE NEGATIVE (NEGATIVE); KETONES,URINE NEGATIVE (NEGATIVE); LEUKOCYTE ESTERASE,URINE NEGATIVE (NEGATIVE); NITRITE,URINE NEGATIVE (NEGATIVE); PROTEIN,URINE NEGATIVE (NEGATIVE); URINE SPECIFIC GRAVITY 1.015; UROBILINOGEN,URINE NEGATIVE mg/dL (<2.0)
[2017-06-21 07:51] LABS: CREATINE KINASE MB 0.89 ng/mL (<4.55); TROPONIN I 0.024 ng/mL
--- NOTE | 2017-06-21 07:55 | PDOC H&P ---
History of Present Illness Admission Date/PCP: 06/21/17 06:18 Patient complains of: Syncope History of Present Illness: KILEY DAWSON is a 62 year old male with a past medical history of congestive heart failure status post permanent pacemaker and AICD placement, stage III chronic kidney disease and rheumatoid arthritis. Patient presents after a syncopal episode occurring with severe dyspnea on ambulation. He denies chest pain, palpitations, focal weakness nausea or vomiting. Admits a similar episode remotely and occasional orthostasis. He denies recent change in medications and feels well with exception to bilateral knee and leg pain. In the emergency room he is found to have acute on chronic renal failure, massive cardiomegaly, pulmonary vascular congestion and referred her to the hospitalist for admission. Past Medical History Cardiac Medical History: Reports: Congestive Heart Failure, Hyperlipidema, Hypertension Pulmonary Medical History: Reports: Pneumonia Denies: Tuberculosis Endocrine Medical History: Reports: Diabetes Mellitus Type 2 Musculoskeltal Medical History: Reports: Arthritis Past Surgical History Past Surgical History: Reports: Pacemaker Social History Information Source: Patient Smoking Status: Former Smoker Hx Recreational Drug Use: No Hx Prescription Drug Abuse: No - Advance Directive Resuscitation Status: Full Code Family History Family History: Arthritis, CAD, COPD Parental Family History Reviewed: Yes Children Family History Reviewed: Yes Sibling(s) Family History Reviewed.: Yes Medication/Allergy Allergies/Adverse Reactions: No Known Allergies Allergy (Verified 06/21/17 03:32) Review of Systems Constitutional: ABSENT: chills, fever(s), headache(s), weight gain, weight loss Eyes: ABSENT: visual disturbances Ears: ABSENT: hearing changes Cardiovascular: ABSENT: chest pain, dyspnea on exertion, edema, orthropnea, palpitations Respiratory: ABSENT: cough, hemoptysis Gastrointestinal: ABSENT: abdominal pain, constipation, diarrhea, hematemesis, hematochezia, nausea, vomiting Genitourinary: ABSENT: dysuria, hematuria Musculoskeletal: ABSENT: joint swelling Integumentary: ABSENT: rash, wounds Neurological: ABSENT: abnormal gait, abnormal speech, confusion, dizziness, focal weakness, syncope Psychiatric: ABSENT: anxiety, depression, homidical ideation, suicidal ideation Endocrine: ABSENT: cold intolerance, heat intolerance, polydipsia, polyuria Hematologic/Lymphatic: ABSENT: easy bleeding, easy bruising Physical Exam Vital Signs: Temp Pulse Resp BP Pulse Ox 97.4 F 60 19 122/91 H 100 06/21/17 03:31 06/21/17 06:06 06/21/17 07:01 06/21/17 07:01 06/21/17 07:01 General appearance: PRESENT: no acute distress, cooperative, obese Head exam: PRESENT: atraumatic, normocephalic Eye exam: PRESENT: conjunctiva pink, EOMI, PERRLA. ABSENT: scleral icterus Ear exam: PRESENT: normal external ear exam Mouth exam: PRESENT: moist, tongue midline Neck exam: ABSENT: carotid bruit, JVD, lymphadenopathy, thyromegaly Respiratory exam: PRESENT: clear to auscultation alexys, crackles, decreased breath sounds, prolonged expiratory phas, tachypnea. ABSENT: rales, rhonchi, wheezes Cardiovascular exam: PRESENT: gallop, +S1, +S2, systolic murmur Pulses: PRESENT: normal dorsalis pedis pul Vascular exam: PRESENT: normal capillary refill GI/Abdominal exam: PRESENT: diminished bowel sounds, distended, normal bowel sounds, soft. ABSENT: guarding, mass, organolmegaly, rebound, tenderness Rectal exam: PRESENT: deferred Extremities exam: PRESENT: full ROM, joint swelling, pedal edema, tenderness, + 1 edema. ABSENT: calf tenderness, clubbing Neurological exam: PRESENT: alert, awake, oriented to person, oriented to place , oriented to time, oriented to situation, CN II-XII grossly intact. ABSENT: motor sensory deficit Psychiatric exam: PRESENT: appropriate affect, normal mood. ABSENT: homicidal ideation, suicidal ideation Skin exam: PRESENT: dry, intact, warm. ABSENT: cyanosis, rash Results Laboratory Results: 06/21/17 06:55 Creatine Kinase 112 Impressions: Chest X-Ray 06/21/17 04:06 IMPRESSION: No significant interval change. 2010 [employer]- All Rights Reserved Head CT 06/21/17 04:07 IMPRESSION: No acute findings. Knee X-Ray 06/21/17 04:25 IMPRESSION: Small moderate bilateral knee effusions. Mild/moderate osteoarthritis. 2010 [employer]- All Rights Reserved Assessment & Plan - Diagnosis (1) Acute exacerbation of congestive heart failure Is this a current diagnosis for this admission?: Yes Plan: Complicated by syncope of concern for abrupt reduction in cardiac output such as subacute MO or pulmonary emboli. I will trend cardiac enzymes and obtain a VQ scan and 2D echo. Otherwise gentle diuresis given chronic kidney disease. (2) Leg pain Is this a current diagnosis for this admission?: Yes Plan: Leg pain occurring following syncopal episode no evidence for fracture concern for possible DVT, symptomatic management follow-up venous Doppler. (3) Knee effusion Is this a current diagnosis for this admission?: Yes Plan: Bilateral and chronic symptomatic management (4) Acute on chronic renal failure Qualifiers: Acute renal failure type: unspecified Chronic kidney disease stage: unspecified stage Qualified Code(s): N17.9 - Acute kidney failure, unspecified ; N18.9 - Chronic kidney disease, unspecified; N18.9 - Chronic kidney disease, unspecified Is this a current diagnosis for this admission?: Yes Plan: Patient denies nephrotoxic meds. I am concerned for reduction in cardiac output please see #1. Avoid nephrotoxic meds and doses (5) Diabetes Qualifiers: Diabetes mellitus type: type 1 Is this a current diagnosis for this admission?: Yes Plan: Long-acting and Humalog sliding scale - Time Time Spent: 50 to 70 Minutes - Inpatient Certification Medical Necessity: Need Close Monitoring Due to Risk of Patient Decompensation
--- NOTE | 2017-06-21 08:42 | EKG REPORT ---
SEVERITY:- ABNORMAL ECG - ATRIAL-PACED COMPLEXES IVCD, CONSIDER ATYPICAL LBBB : Confirmed by: Noel Ortega 21-Jun-2017 08:41:36
--- NOTE | 2017-06-21 09:06 | RADIOLOGY REPORT (SQ) ---
EXAM DESCRIPTION: NM LUNG VENT/PERF SCAN COMPLETED DATE/TIME: 06/21/2017 8:49 am REASON FOR STUDY: CHF, SOB, LE PAIN CONCERN FOR DVT COMPARISON: None. RADIONUCLIDE AND DOSE: 5.3 millicuries TC-99m MAA Intravenous 30.6 millicuries TC-99m DTPA Inhaled aerosol TECHNIQUE: Eight views of the lungs acquired post ventilation of DTPA aerosol. Eight matching views of the lungs acquired following injection of MAA. LIMITATIONS: None. FINDINGS: VENTILATION: Symmetric and homogeneous distribution of DTPA aerosol during ventilatory pha se. No significant areas of photopenia. PERFUSION: Perfusion images with normal homogenous activity and no wedge-shaped or segmental defects. No ventilation-perfusion mismatches. OTHER: No other significant finding. IMPRESSION: Low probability for pulmonary embolus. TECHNICAL DOCUMENTATION: JOB ID: [id number] [employer]- All Rights Reserved
--- NOTE | 2017-06-21 09:23 | Physician Advisory Note ---
Physician Advisor ProgressNote .: Pursuant to the plan for [facility], I have reviewed the medical record for this patient. Physician Advisor Statement: Please consider documenting, if you agree: 1. "Acute on chronic CHF, suspect ____ type" (systolic? diastolic? ...) - Attending has nicely documented (+)massive cardiomegaly, pulmonary vascular congestion, BLE edema, rales. 2. "Persistent Afib" or "Paroxysmal Afib" 3. By time of d/c, most likely cause of syncope. Status: appropriately Outpt Obs to start, but if by 06/22 he continues to have concerning clinical issues requiring hospital level care/monitoring, attending may document concerns & consider change to Inpt. (Recurrent tachypnea? worsening renal fn? insufficient clinical response? ...) CK
[2017-06-21] MEDS: NITROGLYCERIN 5 MG (0.2 MG/HR) PATCH.TD24 TD SCH (09:34)
[2017-06-21] MEDS: FUROSEMIDE INJ/PF 40 MG/4 ML SDV IV SCH (09:37)
[2017-06-21] MEDS: LOSARTAN POTASSIUM 25 MG TABLET PO SCH ×2 (09:37→21:52)
[2017-06-21] MEDS: DOCUSATE SODIUM 100 MG CAPSULE PO SCH (09:38)
[2017-06-21] MEDS: AMIODARONE HCL 200 MG TABLET PO SCH (09:38)
[2017-06-21] MEDS: HYDROCODONE/ACETAMINOPHEN 5-325 MG TABLET PO PRN ×2 (09:50→21:53)
[2017-06-21] MEDS: EPLERENONE 25 MG TABLET PO SCH (12:24)
[2017-06-21] MEDS: HEPARIN SOD (PORCINE) 5,000 UNIT/ML 1 ML SYRINGE SUBCUT SCH ×2 (13:52→21:47)
[2017-06-21] MEDS ORDERED: SUCRALFATE 1 GM TABLET PO PRN (14:18)
--- NOTE | 2017-06-21 14:25 | PDOC PROGRESS REPORT ---
Subjective Progress Note for:: 06/21/17 Subjective:: The patient is seen on morning rounds for a follow-up on CHF exacerbation, acute on chronic renal failure, and bilateral knee pain from a fall secondary to syncopal event. The patient is seen while still in the emergency department , unfortunately, he is awaiting PEG placement. He tells me that he is feeling fine at the moment; fact, he is found to be lying supine while on room air does not appear to be in any discomfort. He reports that his breathing has improved after receiving medications in the emergency department. His primary complaint at this time is bilateral knee pain with the left being more severe than the right. He does state that the pain medication has been helpful. He has no other questions or concerns at this time. Reason For Visit: HEART FAILURE, ARF ON CKD, BLT KNEE EFFUSION Physical Exam Vital Signs: Temp Pulse Resp BP Pulse Ox 97.4 F 60 23 H 109/77 97 06/21/17 03:31 06/21/17 06:06 06/21/17 13:32 06/21/17 13:32 06/21/17 13:32 General appearance: PRESENT: no acute distress, well-developed, well-nourished, other - Overweight Head exam: PRESENT: atraumatic, normocephalic Eye exam: PRESENT: conjunctiva pink, EOMI, PERRLA. ABSENT: scleral icterus Ear exam: PRESENT: normal external ear exam Mouth exam: PRESENT: moist, tongue midline Teeth exam: PRESENT: poor dentation Neck exam: ABSENT: carotid bruit, JVD, lymphadenopathy, thyromegaly Respiratory exam: PRESENT: clear to auscultation alexys, symmetrical, unlabored. ABSENT: rales, rhonchi, wheezes Cardiovascular exam: PRESENT: bradycardia, RRR. ABSENT: diastolic murmur, rubs , systolic murmur Pulses: PRESENT: normal dorsalis pedis pul Vascular exam: PRESENT: normal capillary refill GI/Abdominal exam: PRESENT: normal bowel sounds, soft. ABSENT: distended, guarding, mass, organolmegaly, rebound, tenderness Rectal exam: PRESENT: deferred Extremities exam: PRESENT: full ROM, joint swelling - Bilateral knee; left greater than right, tenderness - Bilateral knees, other - Ecchymosis to left knee. ABSENT: calf tenderness, clubbing, pedal edema Musculoskeletal exam: PRESENT: ambulatory Neurological exam: PRESENT: alert, awake, oriented to person, oriented to place , oriented to time, oriented to situation, CN II-XII grossly intact. ABSENT: motor sensory deficit Psychiatric exam: PRESENT: appropriate affect, normal mood. ABSENT: homicidal ideation, suicidal ideation Skin exam: PRESENT: dry, intact, warm. ABSENT: cyanosis, rash Results Laboratory Results: 06/21/17 06/21/17 06:55 06:55 Creatine Kinase 112 CK-MB (CK-2) 0.89 Troponin I 0.024 Impressions: Lung Scan-VQ NM 06/21/17 00:00 IMPRESSION: Low probability for pulmonary embolus. Chest X-Ray 06/21/17 04:06 IMPRESSION: No significant interval change. 2010 [employer]- All Rights Reserved Head CT 06/21/17 04:07 IMPRESSION: No acute findings. Knee X-Ray 06/21/17 04:25 IMPRESSION: Small moderate bilateral knee effusions. Mild/moderate osteoarthritis. 2010 [employer]- All Rights Reserved Assessment & Plan - Diagnosis (1) Syncope Is this a current diagnosis for this admission?: Yes Plan: The patient presents to the emergency department with a complaint of syncope and collapse. He reports that he has had a couple episodes of near syncope over the last 1-2 weeks that are generally preceded by a sensation of dyspnea and dizziness. He denies chest pain palpitations prior to these events. He states the last time his AICD fired was approximately 3 years ago. The patient was evaluated in the emergency tart department with a head CT demonstrated no acute findings. He will be admitted for observation on continuous telemetry and is currently awaiting a bed assignment. He will be evaluated with an echocardiogram, his Doppler studies,, and trending troponins. I have also requested that his pacemaker be interrogated and that orthostatic vital signs be obtained every shift. (2) Acute exacerbation of congestive heart failure Is this a current diagnosis for this admission?: Yes Plan: The patient has a history of congestive heart failure. His syncopal episodes is concern for abrupt reduction in cardiac output such as with a subacute DC or pulmonary emboli. Troponins will be trended every 6 hours 3. An echocardiogram is pending. VQ scan shows low probability of PE and his venous Doppler he is pending. We will interrogate pacemaker. His amiodarone, Inspra, losartan, and nitroglycerin transdermal patch are continued. He is provided gentle IV furosemide diuresis with resultant improvement in his respiratory comfort. The patient is now maintaining oxygen saturations on room air and is lying comfortably supine. (3) Acute on chronic renal failure Qualifiers: Acute renal failure type: unspecified Chronic kidney disease stage: unspecified stage Qualified Code(s): N17.9 - Acute kidney failure, unspecified ; N18.9 - Chronic kidney disease, unspecified; N18.9 - Chronic kidney disease, unspecified Is this a current diagnosis for this admission?: Yes Plan: At this time, acute renal failure is presumed to be secondary to some reduction in cardiac output related to #1, #2. Avoid nephrotoxic medications. Will follow BMPs. (4) Diabetes Qualifiers: Diabetes mellitus type: type 1 Is this a current diagnosis for this admission?: Yes Plan: Patient is provided a consistent carb diet with Accu-Cheks before meals and at bedtime. Humalog for sliding scale coverage. (5) Knee effusion Qualifiers: Laterality: bilateral Qualified Code(s): M25.461 - Effusion, right knee; M25.462 - Effusion, left knee; M25.462 - Effusion, left knee Is this a current diagnosis for this admission?: Yes Plan: Secondary to fall during syncopal event. Small moderate bilateral knee effusions with mild to moderate osteoarthritis noted by x-ray. The patient was provided Tylenol and oxycodone as needed pain with recommendations for elevation and ice. - Time Time Spent with patient: 25-34 minutes Medications reviewed and adjusted accordingly: Yes Anticipated discharge: Home
[2017-06-21] MEDS ORDERED: INFLUENZA ADLT QUAD (36MOS+) 2017-18 VAC 0.5 ML SYR IM PRN (17:06)
[2017-06-21 17:33] LABS: CREATINE KINASE MB 1.01 ng/mL (<4.55); TROPONIN I 0.022 ng/mL
[2017-06-21] MEDS ORDERED: AMIODARONE HCL 200 MG TABLET PO SCH (22:00)
[2017-06-21 23:31] LABS: CREATINE KINASE MB 1.13 ng/mL (<4.55); TROPONIN I 0.017 ng/mL
[2017-06-22 04:46] LABS: ABSOLUTE BASOPHILS # (AUTO) 0.1 10^3/uL (0.0-0.2); ABSOLUTE EOSINOPHILS # (AUTO) 0.2 10^3/uL (0.0-0.6); ABSOLUTE LYMPHOCYTES (AUTO) 1.1 10^3/uL (0.5-4.7); ABSOLUTE MONOCYTES (AUTO) 1.3 10^3/uL (0.1-1.4); ABSOLUTE NEUT (AUTO) 5.1 10^3/uL (1.7-8.2); BASOPHILS % (AUTO) 0.7 % (0-2); EOSINOPHILS % (AUTO) 3.1 % (0-6); HEMATOCRIT 36.9 % (37.9-51.0); HEMOGLOBIN 12.1 g/dL (13.5-17.0); HGB HCT DIFFERENCE -0.6; LYMPHOCYTES % (AUTO) 14.5 % (13-45); MEAN CORPUSCULAR HEMOGLOBIN 28.8 pg (27.0-33.4); MEAN CORPUSCULAR HGB CONC 32.9 g/dL (32.0-36.0); MEAN CORPUSCULAR VOLUME 88 fl (80-97); MONOCYTES % (AUTO) 16.7 % (3-13); RED BLOOD COUNT 4.21 10^6/uL (4.35-5.55); RED CELL DISTRIBUTION WIDTH 16.4 % (11.5-14.0); WHITE BLOOD COUNT 7.8 10^3/uL (4.0-10.5)
[2017-06-22 05:12] LABS: ANION GAP 11 (5-19); BLOOD UREA NITROGEN 45 mg/dL (7-20); CALCIUM 8.6 mg/dL (8.4-10.2); CARBON DIOXIDE 28 mmol/L (22-30); CHLORIDE 98 mmol/L (98-107); CREATININE RESULT 2.32 mg/dL (0.52-1.25); GLUCOSE 145 mg/dL (75-110); POTASSIUM 3.7 mmol/L (3.6-5.0); SODIUM 137.3 mmol/L (137-145)
[2017-06-22] MEDS: HEPARIN SOD (PORCINE) 5,000 UNIT/ML 1 ML SYRINGE SUBCUT SCH ×3 (06:10→21:54)
--- NOTE | 2017-06-22 06:50 | Physician Advisory Note ---
Physician Advisor ProgressNote .: Pursuant to the plan for Alejandro [facility], I have reviewed the medical record for this patient. Physician Advisor Statement: - this note combines 06/21 note + today's info - Please consider documenting, if you agree: 1. "Acute on chronic CHF, suspect ____ type" (systolic? diastolic? ...) - Attending has nicely documented (+)massive cardiomegaly, pulmonary vascular congestion, BLE edema, rales. 2. "Persistent Afib" vs. "Paroxysmal Afib" 3. Most likely cause of syncope (by time of d/c) 4. Medical necessity: on 06/22, if can't go home yet, state clinical reason(s) , such as: "renal function not yet back to baseline", "CHF not yet sufficiently improved", "I am concerned about ", "recurrent tachypnea", ..., & appropriate to change to Inpatient status. Status: see above CK
[2017-06-22] MEDS: METOPROLOL SUCCINATE 50 MG TAB.SR.24H PO SCH (09:53)
[2017-06-22] MEDS: PREDNISONE 1 MG TABLET PO SCH (09:54)
[2017-06-22] MEDS: NITROGLYCERIN 5 MG (0.2 MG/HR) PATCH.TD24 TD SCH (09:54)
[2017-06-22] MEDS: DOCUSATE SODIUM 100 MG CAPSULE PO SCH (09:55)
[2017-06-22] MEDS: EPLERENONE 25 MG TABLET PO SCH (09:55)
[2017-06-22] MEDS: FUROSEMIDE INJ/PF 40 MG/4 ML SDV IV SCH (09:55)
[2017-06-22] MEDS: AMIODARONE HCL 200 MG TABLET PO SCH (09:55)
--- NOTE | 2017-06-22 09:56 | PDOC PROGRESS REPORT ---
Subjective Progress Note for:: 06/22/17 Subjective:: The patient is seen on morning rounds for a follow-up on CHF exacerbation, acute on chronic renal failure, and bilateral knee pain from a fall secondary to syncopal event. The patient reports that his eating is comfortable, however, he does have a slightly productive cough of thin clear sputum. He denies chest pain and palpitations. He has not had any additional syncopal/near syncope events. His primary complaint today remains his bilateral knee pain from the fall experienced on Wednesday. The left knee is more painful than the right. He states that his pain is moderately well controlled with pain medications. He has no other questions or concerns at this time. Reason For Visit: HEART FAILURE, ARF ON CKD, BLT KNEE EFFUSION Physical Exam Vital Signs: Temp Pulse Resp BP Pulse Ox 97.8 F 59 L 17 125/84 100 06/22/17 07:43 06/22/17 07:43 06/22/17 07:43 06/22/17 07:43 06/22/17 07:43 Intake & Output 06/21/17 06/22/17 06/23/17 06:59 06:59 06:59 Intake Total 120 Output Total 900 Balance -780 Weight 118.9 kg General appearance: PRESENT: no acute distress, obese, well-developed, well- nourished Head exam: PRESENT: atraumatic, normocephalic Eye exam: PRESENT: conjunctiva pink, EOMI, PERRLA. ABSENT: scleral icterus Ear exam: PRESENT: normal external ear exam Mouth exam: PRESENT: moist, tongue midline Neck exam: ABSENT: carotid bruit, JVD, lymphadenopathy, thyromegaly Respiratory exam: PRESENT: clear to auscultation alexys, decreased breath sounds - Bibasilar, symmetrical, unlabored. ABSENT: rales, rhonchi, wheezes Cardiovascular exam: PRESENT: bradycardia, RRR. ABSENT: diastolic murmur, rubs , systolic murmur Pulses: PRESENT: normal dorsalis pedis pul Vascular exam: PRESENT: normal capillary refill GI/Abdominal exam: PRESENT: normal bowel sounds, soft. ABSENT: distended, guarding, mass, organolmegaly, rebound, tenderness Rectal exam: PRESENT: deferred Extremities exam: PRESENT: full ROM, joint swelling - Bilateral knees, tenderness - Bilateral knees. ABSENT: calf tenderness, clubbing, pedal edema Musculoskeletal exam: PRESENT: ambulatory Neurological exam: PRESENT: alert, awake, oriented to person, oriented to place , oriented to time, oriented to situation, CN II-XII grossly intact. ABSENT: motor sensory deficit Psychiatric exam: PRESENT: appropriate affect, normal mood. ABSENT: homicidal ideation, suicidal ideation Skin exam: PRESENT: dry, intact, warm. ABSENT: cyanosis, rash Results Laboratory Results: 06/22/17 04:20 06/22/17 04:20 06/22/17 06/22/17 04:20 04:20 WBC 7.8 RBC 4.21 L Hgb 12.1 L Hct 36.9 L MCV 88 MCH 28.8 MCHC 32.9 RDW 16.4 H Plt Count 153 Seg Neutrophils % 65.0 Lymphocytes % 14.5 Monocytes % 16.7 H Eosinophils % 3.1 Basophils % 0.7 Absolute Neutrophils 5.1 Absolute Lymphocytes 1.1 Absolute Monocytes 1.3 Absolute Eosinophils 0.2 Absolute Basophils 0.1 Sodium 137.3 Potassium 3.7 Chloride 98 Carbon Dioxide 28 Anion Gap 11 BUN 45 H Creatinine 2.32 H Est GFR ( Amer) 35 L Est GFR (Non-Af Amer) 29 L Glucose 145 H Calcium 8.6 06/21/17 06/21/17 06/21/17 06:55 06:55 16:55 Creatine Kinase 112 141 CK-MB (CK-2) 0.89 Troponin I 0.024 06/21/17 06/21/17 06/21/17 16:55 22:35 22:35 Creatine Kinase 203 H CK-MB (CK-2) 1.01 1.13 Troponin I 0.022 0.017 Impressions: Lung Scan-VQ NM 06/21/17 00:00 IMPRESSION: Low probability for pulmonary embolus. Chest X-Ray 06/21/17 04:06 IMPRESSION: No significant interval change. 2010 [employer]- All Rights Reserved Head CT 06/21/17 04:07 IMPRESSION: No acute findings. Knee X-Ray 06/21/17 04:25 IMPRESSION: Small moderate bilateral knee effusions. Mild/moderate osteoarthritis. 2010 [employer]- All Rights Reserved Assessment & Plan - Diagnosis (1) Syncope Is this a current diagnosis for this admission?: Yes Plan: The patient presents to the emergency department with a complaint of syncope and collapse. He reports that he has had a couple episodes of near syncope over the last 1-2 weeks that are generally preceded by a sensation of dyspnea and dizziness. He denies chest pain palpitations prior to these events. He states the last time his AICD fired was approximately 3 years ago. The patient was evaluated in the emergency department with a head CT which demonstrated no acute findings. The patient is transitioned to an inpatient status today secondary to acute renal failure. His echocardiogram, venous Doppler, and pacemaker interrogation are still pending. I spoke with the floor nurse who will follow up on these exams today. Troponins were trended and remained negative. (2) Acute exacerbation of congestive heart failure Qualifiers: Congestive heart failure type: unspecified congestive heart failure type Qualified Code(s): I50.9 - Heart failure, unspecified Is this a current diagnosis for this admission?: Yes Plan: The patient has a history of congestive heart failure. His syncopal episodes is concern for abrupt reduction in cardiac output such as with a subacute CA or pulmonary emboli. Troponins trended negative. VQ scan shows low probability of PE and his venous Doppler he is pending. Echocardiogram and pacemaker interrogation are pending. We will continue IV furosemide for diuresis. His amiodarone, Inspra, losartan, and nitroglycerin transdermal patch are continued. (3) Acute on chronic renal failure Qualifiers: Acute renal failure type: unspecified Chronic kidney disease stage: unspecified stage Qualified Code(s): N17.9 - Acute kidney failure, unspecified ; N18.9 - Chronic kidney disease, unspecified; N18.9 - Chronic kidney disease, unspecified Is this a current diagnosis for this admission?: Yes Plan: At this time, acute renal failure is presumed to be secondary to some reduction in cardiac output related to #1, #2. Creatinine is trending down, however, not at his baseline af approximately 2.0. Therefore, he will be transition to an inpatient status for continued monitoring. Will optimize therapy for CHF exacerbation as above. Avoid nephrotoxic medications. Will follow BMPs. (4) Diabetes Qualifiers: Diabetes mellitus type: type 1 Is this a current diagnosis for this admission?: Yes Plan: Patient is provided a consistent carb diet with Accu-Cheks before meals and at bedtime. Humalog for sliding scale coverage. (5) Knee effusion Qualifiers: Laterality: bilateral Qualified Code(s): M25.461 - Effusion, right knee; M25.462 - Effusion, left knee; M25.462 - Effusion, left knee Is this a current diagnosis for this admission?: Yes Plan: Secondary to fall during syncopal event. Small moderate bilateral knee effusions with mild to moderate osteoarthritis noted by x-ray. The patient was provided Tylenol and oxycodone as needed pain with recommendations for elevation and ice. Will apply joss wrap to left knee. - Time Time Spent with patient: 25-34 minutes Medications reviewed and adjusted accordingly: Yes Anticipated discharge: Home - Inpatient Certification Based on my medical assessment, after consideration of the patient's comorbidities, presenting symptoms, or acuity I expect that the services needed warrant INPATIENT care.: Yes I certify that my determination is in accordance with my understanding of Medicare's requirements for reasonable and necessary INPATIENT services [42 CFR 412.3e].: Yes Medical Necessity: Need Close Monitoring Due to Risk of Patient Decompensation, Need For Continuous Telemetry Monitoring
[2017-06-22] MEDS: LOSARTAN POTASSIUM 25 MG TABLET PO SCH ×2 (09:59→21:53)
[2017-06-22] MEDS ORDERED: (PENDING PHARMACY ID) (Metoprolol Succinate [Toprol Xl 200 Mg Tablet] 200 MG) PO SCH (10:00)
[2017-06-22] MEDS: HYDROCODONE/ACETAMINOPHEN 5-325 MG TABLET PO PRN ×2 (10:02→18:08)
--- NOTE | 2017-06-22 14:54 | XCELERA REPORT ---
[address] [address] Lower Extremity Venous Evaluation Name: KILEY DAWSON Age: 62 yrs Gender: Male : 1955 Patient Status: Inpatient Patient Location: [address] [place] [address] Study Date: 06/22/2017 01:48 PM Procedure: Color flow and duplex imaging bilaterally of the veins of the lower extremities as well as the Common Femoral veins. Reason For Study: calf pain and sob Ordering Physician: JESÚS PLUMMER Performed By: Baylee Portillo Right Sided Venous Evaluation Somewhat pulsatile flow noted in the veins. Otherwise normal vessel filling wall to wall, compression and augmentation as well as Colour flow down to the infrageniculate veins. Left Sided Venous Evaluation Somewhat pulsatile flow noted in the veins. Otherwise normal vessel filling wall to wall, compression and augmentation as well as Colour flow down to the infrageniculate veins. Interpretation Summary No duplex evidence of DVT or obstruction in the bilateral lower extremities. Pulsatile flow is noted in the lower extremity veins. This can have a number of causes. : JESÚS PLUMMER [place]
--- NOTE | 2017-06-22 19:33 | XCELERA REPORT ---
[address] [address] Transthoracic Echocardiogram Report Name: KILEY DAWSON Age: 62 yrs Gender: Male : 1955 Patient Status: Inpatient Patient Location: [address] [place], [place] [address] Study Date: 06/22/2017 01:19 PM Height: 71 in Weight: 262 lb BSA: 2.4 m2 Procedure: A two-dimensional transthoracic echocardiogram with color flow and Doppler was performed. The study was technically limited with all images being suboptimal in quality. Reason For Study: chf History: CHF. Ordering Physician: JESÚS PLUMMER Performed By: Baylee Portillo Interpretation Summary The left ventricle is moderately to severly dilated. LV EF is lss than 20%.% Left ventricular systolic function is severely reduced. There is no thrombus. The right ventricle is not well visualized secondary to technical limitations The left atrium is moderately dilated. There is no evidence of mitral valve prolapse. There is no mitral valve stenosis. There is a mild amount of mitral regurgitation There is no aortic valve stenosis There is no LVOT obstruction. No aortic regurgitation is present. There is no tricuspid stenosis. There is a moderate to severe amount of tricuspid regurgitation There is servere pulmonary hypertension by echo RVSP is greater than 64 mm of Hg .(RA mean 20 mm or greater. There is a mild amount of pulmonic regurgitation There is no pulmonic valvular stenosis. The inferior vena cava appeared dilated and did not change with respiration (RAP > 20 mmHg) There is no pericardial effusion. MMode/2D Measurements & Calculations RVDd: 3.8 cm LVIDd: 6.8 cm FS: 10.7 % EPSS: 1.6 cm IVSd: 1.0 cm LVIDs: 6.1 cm EDV(Teich): 242.2 ml LVPWd: 0.97 cm ESV(Teich): 187.4 ml EF(Teich): 22.6 % Ao root diam: 2.8 cm LVOT diam: 2.3 cm Ao root area: 6.1 cm2 LVOT area: 4.0 cm2 LA dimension: 4.6 cm Doppler Measurements & Calculations MV E max mulu: MV P1/2t max mulu: Ao V2 max: LV V1 max P.8 cm/sec 91.8 cm/sec 133.4 cm/sec 2.0 mmHg MV A max mulu: MV P1/2t: 49.5 msec Ao max PG: LV V1 max: 28.1 cm/sec MVA(P1/2t): 4.4 cm2 7.1 mmHg 71.3 cm/sec MV E/A: 3.3 MV dec slope: ARIES(V,D): 2.2 cm2 542.8 cm/sec2 PA V2 max: PI end-d mulu: TR max mulu: 99.7 cm/sec 173.7 cm/sec 328.5 cm/sec PA max PG: TR max P.0 mmHg 43.2 mmHg Left Ventricle The left ventricle is moderately to severly dilated. There is normal left ventricular wall thickness. LV EF is lss than 20%.%. Left ventricular systolic function is severely reduced. There is severe global hypokinesis of the left ventricle. There is no thrombus. There is no ventricular septal defect visualized. Right Ventricle The right ventricle is not well visualized secondary to technical limitations. Atria The right atrium is normal in size. The left atrium is moderately dilated. The interatrial septum is intact with no evidence for an atrial septal defect. Mitral Valve There is no evidence of mitral valve prolapse. There is no vegetation seen on the mitral valve. There is no mitral valve stenosis. There is a mild amount of mitral regurgitation. Aortic Valve There is no aortic valvular vegetation. There is no aortic valve stenosis. There is no LVOT obstruction. No aortic regurgitation is present. Tricuspid Valve There is no tricuspid stenosis. There is a moderate to severe amount of tricuspid regurgitation. There is servere pulmonary hypertension by echo. RVSP is greater than 64 mm of Hg .(RA mean 20 mm or greater. Pulmonic Valve There is no pulmonic valvular stenosis. There is a mild amount of pulmonic regurgitation. Great Vessels The aortic root is normal size. The inferior vena cava appeared dilated and did not change with respiration (RAP > 20 mmHg). Effusions There is no pericardial effusion. : JESÚS PLUMMER > Bre Quijano
[2017-06-22] MEDS: INSULIN LISPRO 100 UNIT/ML 3 ML VIAL SUBCUT PRN (21:55)
[2017-06-23] MEDS: HEPARIN SOD (PORCINE) 5,000 UNIT/ML 1 ML SYRINGE SUBCUT SCH ×3 (05:32→21:10)
[2017-06-23] MEDS: HYDROCODONE/ACETAMINOPHEN 5-325 MG TABLET PO PRN ×2 (06:06→19:41)
[2017-06-23 06:07] LABS: ANION GAP 15 (5-19); BLOOD UREA NITROGEN 43 mg/dL (7-20); CALCIUM 8.9 mg/dL (8.4-10.2); CARBON DIOXIDE 23 mmol/L (22-30); CHLORIDE 97 mmol/L (98-107); CREATININE RESULT 2.37 mg/dL (0.52-1.25); GLUCOSE 127 mg/dL (75-110); POTASSIUM 4.6 mmol/L (3.6-5.0); SODIUM 134.8 mmol/L (137-145)
[2017-06-23] MEDS: EPLERENONE 25 MG TABLET PO SCH (09:51)
[2017-06-23] MEDS: METOPROLOL SUCCINATE 50 MG TAB.SR.24H PO SCH (09:52)
[2017-06-23] MEDS: PREDNISONE 1 MG TABLET PO SCH (09:53)
[2017-06-23] MEDS: AMIODARONE HCL 200 MG TABLET PO SCH (09:53)
[2017-06-23] MEDS: LOSARTAN POTASSIUM 25 MG TABLET PO SCH (09:53)
[2017-06-23] MEDS: DOCUSATE SODIUM 100 MG CAPSULE PO SCH (09:54)
[2017-06-23] MEDS: FUROSEMIDE INJ/PF 40 MG/4 ML SDV IV SCH (09:54)
[2017-06-23] MEDS: NITROGLYCERIN 5 MG (0.2 MG/HR) PATCH.TD24 TD SCH (09:54)
--- NOTE | 2017-06-23 15:17 | Physician Advisory Note ---
Physician Advisor ProgressNote .: Pursuant to the plan for [facility], I have reviewed the medical record for this patient. Physician Advisor Statement: Please, in addition to addressing in documentation the points from 06/22 PA note , please specify the stage of chronic kidney dz - is it "Stage 3-4", or ....? Thanks! CK
--- NOTE | 2017-06-23 15:53 | PROGRESS NOTE E ---
Progress Note NAME: KILEY DAWSON : 1955 AGE: 62Y DATE: 06/23/2017 ROOM: SUBJECTIVE: The patient is currently sitting on the side of the bed. He states that he feels okay today, other than both of his knees hurt. His left knee is "excruciating." The patient denies any nausea, vomiting, diarrhea. No shortness of breath at rest, but with minimal exertion, he has it. No dizziness, chest pain. No further syncopal episodes. The patient does not voice any other concerns at this time. REVIEW OF SYSTEMS: The rest of the review of systems is negative. MEDICATIONS: Medications have been reviewed. OBJECTIVE: GENERAL: The patient is a 62-year-old male, who is awake, alert and oriented to person, place, time and situation. He is verbal and conversational. Does not appear to be in any acute distress. VITAL SIGNS: Temperature is 97.3, pulse 60, respirations 17, blood pressure is 113/76. Oxygen saturation 100% on room air. SKIN: Warm and dry. No rash. He is not diaphoretic. HEENT: Pupils equal, round, reactive to light and accommodation. Conjunctivae is pink. Sclerae anicteric. NECK: Patient had JVP to the right clavicle. CARDIOVASCULAR: Heart is regular. There is no rub. CHEST: Diminished, symmetrical, with bilateral basal crackles. ABDOMEN: Soft. Bowel sounds present. EXTREMITIES: No clubbing or cyanosis. The patient's right knee does have some edema. The patient's left knee is wrapped in Riky wrap. PSYCHIATRIC: Appropriate affect. Pleasant mood. DIAGNOSTICS: Lab values are as follows: Hematology obtained 06/22/2017: WBCs are 7.8, hemoglobin 12.1, hematocrit 36.1, platelet count is 153,000. Chemistries obtained on 06/23/2017: Sodium is 134, potassium 4.6, chloride is 97, carbon dioxide 23, BUN 43, creatinine 2.37, glucose 127, calcium is 8.9. IMPRESSION AND PLAN: 1. ACUTE ON CHRONIC SYSTOLIC AND DIASTOLIC CONGESTIVE HEART FAILURE. Will continue to diurese the patient, as well as home medications, and follow. The patient's EF is approximately 20%. 2. SYNCOPE, POSSIBLY RELATED TO #1. The patient's AICD has not fired. Will follow. 3. ACUTE ON CHRONIC RENAL FAILURE. Patient's creatinine has improved slightly with diuresis. Will continue to follow. 4. DIABETES MELLITUS TYPE 2. Will continue sliding scale coverage as well as diabetic diet. 5. KNEE EFFUSION. Will consult Orthopedics, as the patient states symptoms have persisted. He is quite uncomfortable. DISPOSITION: The patient is a FULL CODE. Pending the patient's symptomatology and diagnostic findings, we will reevaluate in the a.m. Time spent on this followup, including assessment, plan, physical examination, patient education and family meeting, is 35 minutes. DICTATING PHYSICIAN: TAB MALCOLM NP [id number] PHY#: [id number] ID: [id number] JOB#: [id number] ACCT: [id number] cc:TAB MALCOLM NP > MTDD
[2017-06-24] MEDS: LOSARTAN POTASSIUM 25 MG TABLET PO SCH ×3 (00:28→22:26)
[2017-06-24] MEDS: HYDROCODONE/ACETAMINOPHEN 5-325 MG TABLET PO PRN ×3 (01:28→17:54)
[2017-06-24] MEDS: HEPARIN SOD (PORCINE) 5,000 UNIT/ML 1 ML SYRINGE SUBCUT SCH ×3 (05:30→22:26)
[2017-06-24] MEDS: NITROGLYCERIN 5 MG (0.2 MG/HR) PATCH.TD24 TD SCH (11:24)
[2017-06-24] MEDS: AMIODARONE HCL 200 MG TABLET PO SCH (11:25)
[2017-06-24] MEDS: DOCUSATE SODIUM 100 MG CAPSULE PO SCH (11:26)
[2017-06-24] MEDS: METOPROLOL SUCCINATE 50 MG TAB.SR.24H PO SCH (11:26)
[2017-06-24] MEDS: PREDNISONE 1 MG TABLET PO SCH (11:27)
[2017-06-24] MEDS: EPLERENONE 25 MG TABLET PO SCH (11:27)
[2017-06-24] MEDS: INSULIN LISPRO 100 UNIT/ML 3 ML VIAL SUBCUT PRN ×2 (11:33→17:54)
--- NOTE | 2017-06-24 13:14 | PROGRESS NOTE E ---
Progress Note NAME: KILEY DAWSON : 1955 AGE: 62Y DATE: 06/24/2017 ROOM: SUBJECTIVE: The patient is currently out of bed and in the bedside chair. He states that he does feel better today. His shortness of breath is improving. He is able to move around the room without shortness of breath, which is an improvement in comparison to yesterday. The patient denies any nausea, vomiting, diarrhea. Still complains of knee pain. No dizziness or chest pain. No fevers or chills. The patient is afebrile. His blood pressures have been a little on the soft side, and the patient does not voice any other concerns at this time. REVIEW OF SYSTEMS: The rest of the review of systems is negative. MEDICATIONS: Medications have been reviewed. OBJECTIVE: GENERAL: The patient is a 62-year-old male, who is awake, alert. He is oriented to person, place, time and situation. He does not appear to be distressed. VITAL SIGNS: Temperature is 97.9, pulse 66, respirations 17, blood pressure is 105/73. Oxygen saturation is 100% on room air. SKIN: Warm and dry. No rashes. Not diaphoretic. HEENT: Pupils equal, round and reactive to light and accommodation. Conjunctivae are pink. NECK: There is no JVP. CARDIOVASCULAR: Heart is regular. There is no rub. CHEST: Clear, symmetrical, unlabored. ABDOMEN: Soft. He does have some fluid in this area. There is no tenderness. EXTREMITIES: No clubbing or cyanosis. The patient does have bilateral edema in his knees. PSYCHIATRIC: Appropriate affect. Pleasant mood. DIAGNOSTICS: Lab values are as follows: Hematology obtained on 06/22/2017: WBC is 7.8, hemoglobin is 12.1, hematocrit is 36.9, platelet count is 153,000. Chemistry obtained on 06/23/2017: Sodium is 134, potassium 4.6, chloride is 97, carbon dioxide 23, BUN 43, creatinine is 2.37, glucose 127. Calcium is 8.9. IMPRESSION AND PLAN: 1. Acute on chronic systolic and diastolic congestive heart failure with an EF of 20%. The patient does have an AICD in place, which was interrogated. Will hold the patient's diuresis today to allow for a holiday, given that the patient's blood pressures are marginal. Will also discontinue the patient's spironolactone and follow. 2. Syncope, most likely related to #1. His AICD was interrogated, but not fired. Will follow. 3. Acute on chronic stage III kidney disease. The patient's creatinine did improve with diuresis. Will follow. 4. Diabetes mellitus, type 2. Will continue sliding scale coverage, as well as a diabetic diet. 5. Bilateral knee effusions. Do appreciate Orthopedics' input on this. The patient will be tapped tomorrow. DISPOSITION: The patient is a FULL CODE. Depending on patient's symptomatology and diagnostic findings, will reevaluate in the a.m. Time spent on this followup, including assessment, plan, physical examination, patient education, review of records and specialty collaboration is 35 minutes. DICTATING PHYSICIAN: TAB MALCOLM NP [id number] PHY#: [id number] ID: [id number] JOB#: [id number] ACCT: [id number] cc:TAB MALCOLM NP > MTDD
--- NOTE | 2017-06-24 14:55 | RADIOLOGY REPORT (SQ) ---
EXAM DESCRIPTION: CAROTID DOPPLER COMPLETED DATE/TIME: 06/24/2017 2:46 pm REASON FOR STUDY: Syncope COMPARISON: None. TECHNIQUE: Grayscale ultrasound, Doppler velocity and spectra, and color Doppler images acquired of the extra-cranial carotid and vertebral arteries. Images stored on PACS. LIMITATIONS: None. FINDINGS: RIGHT CAROTID CCA Velocities: Within normal limits. ICA Velocities Peak systolic 0.57 m/s. End diastolic 0.30 m/s. Proximal ICA/CCA peak systolic ratio 1.2. Spectra normal. No significant plaque. LEFT CAROTID CCA Velocities: Within normal limits. ICA Velocities Peak systolic 0.49 m/s. End diastolic 0.21 m/s. Proximal ICA/CCA peak systolic ratio 1.1. Spectra normal. No significant plaque. VERTEBRAL ARTERIES: Antegrade flow. Normal waveforms. SUBCLAVIAN ARTERIES: No finding. OTHER: No other significant finding. IMPRESSION: NO HEMODYNAMICALLY SIGNIFICANT STENOSIS. COMMENT: Quality ID #[id number]: Velocity criteria are extrapolated from the diameter data as defined by t he Society of Radiologists in Ultrasound Consensus Conference. Radiology 2003: 229; 340-346. TECHNICAL DOCUMENTATION: JOB ID: [id number] [employer]- All Rights Reserved
--- NOTE | 2017-06-24 17:28 | PDOC CONSULTATION ---
Consultation Consult Date: 06/23/17 Consult reason:: Bilateral knee pain and swelling History of Present Illness Admission Date/PCP: 06/22/17 08:59 Patient complains of: Bilateral knee pain and swelling History of Present Illness: 62-year-old gentleman with significant comorbidities including diabetes congestive heart failure and renal failure. Patient has syncopal episode and was admitted. Has long-standing bilateral knee pain but since the syncopal episode has been complaining of swelling and decreased range of motion. X-rays were taken here in the office. Denies any fevers chills numbness or tingling. Denies any gout rheumatoid arthritis or psoriatic arthritis diagnosis. Complains of global knee pain left worse than right. He knows that he has diagnoses of arthritis in his knees. Past Medical History Cardiac Medical History: Reports: Congestive Heart Failure, Hyperlipidema, Hypertension Pulmonary Medical History: Reports: Pneumonia Denies: Tuberculosis Endocrine Medical History: Reports: Diabetes Mellitus Type 2 Musculoskeltal Medical History: Reports: Arthritis Past Surgical History Past Surgical History: Reports: Pacemaker Social History Smoking Status: Former Smoker Number of Years Smokin Last Time Smoked: 30 years ago Frequency of Alcohol Use: None Hx Recreational Drug Use: No Drugs: None Hx Prescription Drug Abuse: No - Advance Directive Resuscitation Status: Full Code Family History Family History: Arthritis, CAD, COPD Parental Family History Reviewed: No Children Family History Reviewed: No Sibling(s) Family History Reviewed.: No Medication/Allergy Home Medications: Amiodarone HCl [Cordarone 200 mg Tablet] 200 mg PO Q12 06/21/17 Furosemide [Lasix 20 mg Tablet] 20 mg PO DAILY 06/21/17 Metoprolol Succinate [Toprol XL 200 mg Tablet] 200 mg PO DAILY 06/21/17 Prednisone [Deltasone 1 mg Tablet] 1 mg PO DAILY 06/21/17 Sucralfate [Carafate 1 gm Tablet] 1 gm PO MEALSHS PRN 06/21/17 Allergies/Adverse Reactions: No Known Allergies Allergy (Verified 06/21/17 03:32) Review of Systems All systems: as per PMH Constitutional: PRESENT: weakness. ABSENT: fever(s), headache(s) Eyes: ABSENT: visual disturbances Ears: ABSENT: hearing changes Nose, Mouth, and Throat: ABSENT: mouth pain, sore throat Cardiovascular: PRESENT: as per HPI Respiratory: ABSENT: cough, hemoptysis Gastrointestinal: ABSENT: diarrhea, dysphagia, nausea, vomiting Genitourinary: ABSENT: difficulty urinating, dysuria, hematuria Musculoskeletal: PRESENT: as per HPI Integumentary: ABSENT: lesions, pruritus, rash Neurological: PRESENT: syncope. ABSENT: numbness, paresthesias, tingling, tremor(s), vertigo Psychiatric: ABSENT: hallucinations, homidical ideation, suicidal ideation Endocrine: ABSENT: cold intolerance, heat intolerance Hematologic/Lymphatic: ABSENT: easy bruising, lymphadenopathy Allergic/Immunologic: ABSENT: seasonal rhinorrhea Physical Exam Vital Signs: Temp Pulse Resp BP Pulse Ox 36.3 C 60 17 119/82 100 06/24/17 15:26 06/24/17 15:26 06/24/17 15:26 06/24/17 15:26 06/24/17 15:26 Intake & Output 06/23/17 06/24/17 06/25/17 06:59 06:59 06:59 Intake Total 2017 1097 530 Output Total 2474 1625 375 Balance -457 -527 155 Weight 116.4 kg 122.2 kg General appearance: PRESENT: no acute distress, cooperative, well-nourished Eye exam: PRESENT: EOMI, PERRLA. ABSENT: conjunctival injection, conjunctiva pink, nystagmus Ear exam: PRESENT: normal external ear exam. ABSENT: bleeding Mouth exam: PRESENT: neck supple, tongue midline Teeth exam: PRESENT: poor dentation Neck exam: ABSENT: lymphadenopathy, thyromegaly, tracheal deviation Respiratory exam: PRESENT: symmetrical, unlabored. ABSENT: accessory muscle use , chest wall tenderness, tachypnea Cardiovascular exam: PRESENT: RRR Pulses: PRESENT: +2 pedal pulses bilateral Vascular exam: PRESENT: normal capillary refill GI/Abdominal exam: PRESENT: soft. ABSENT: distended, rebound, rigid, tenderness Extremities exam: PRESENT: joint swelling, tenderness Musculoskeletal exam: PRESENT: tenderness. ABSENT: deformity Neurological exam: PRESENT: alert, awake, oriented to person, oriented to place , oriented to time, oriented to situation Psychiatric exam: PRESENT: appropriate affect Skin exam: PRESENT: intact. ABSENT: abrasion, erythema, petechiae, rash Additonal comments: Bilateral knee exam shows tenderness to palpation globally in the patellofemoral compartment, medial compartment, lateral compartment. Left knee has a +3 effusion. Right knee has about a +1 effusion. Range of motion is -10 of extension to about 100 and degrees of flexion on the right versus the left is about -10 -90. Positive crepitus. Distally patient has gross sensation to light touch with gross motor function. Results Laboratory Results: 06/23/17 04:49 Impressions: Lung Scan-VQ NM 06/21/17 00:00 IMPRESSION: Low probability for pulmonary embolus. Chest X-Ray 06/21/17 04:06 IMPRESSION: No significant interval change. 2010 [employer]- All Rights Reserved Head CT 06/21/17 04:07 IMPRESSION: No acute findings. Knee X-Ray 06/21/17 04:25 IMPRESSION: Small moderate bilateral knee effusions. Mild/moderate osteoarthritis. 2010 [employer]- All Rights Reserved Carotid Doppler Study 06/24/17 00:00 IMPRESSION: NO HEMODYNAMICALLY SIGNIFICANT STENOSIS. Status: Image reviewed by me - Severe osteoarthritis of bilateral knees with osteophytes of tricompartment in both knees. [id number] in both knees as well. Assessment & Plan - Diagnosis (1) Knee effusion Qualifiers: Laterality: bilateral Qualified Code(s): M25.461 - Effusion, right knee; M25.462 - Effusion, left knee; M25.462 - Effusion, left knee Is this a current diagnosis for this admission?: Yes (2) Primary osteoarthritis of both knees Is this a current diagnosis for this admission?: Yes - Plan Summary Plan Summary: 62-year-old gentleman with bilateral knee osteoarthritis and possibly effusion on the left knee and +1 effusion on the right. Effusion likely due to trauma and flareup of osteoarthritis of his knees. Patient to likely stay for another day or 2 then we can proceed with aspiration release of the left knee. We can monitor of the right knee. Alternatively the patient can be best served by follow-up in our office and we can aspirate and inject cortisone injections for bilateral knee osteoarthritis and effusions. Meantime does try anti-inflammatories if possible. Pain control. Conservative moderate physical therapy can be attempted as well.
[2017-06-25] MEDS: HEPARIN SOD (PORCINE) 5,000 UNIT/ML 1 ML SYRINGE SUBCUT SCH ×3 (06:03→21:56)
[2017-06-25] MEDS: NITROGLYCERIN 5 MG (0.2 MG/HR) PATCH.TD24 TD SCH (09:39)
[2017-06-25] MEDS: METOPROLOL SUCCINATE 50 MG TAB.SR.24H PO SCH (09:39)
[2017-06-25] MEDS: DOCUSATE SODIUM 100 MG CAPSULE PO SCH (09:40)
[2017-06-25] MEDS: AMIODARONE HCL 200 MG TABLET PO SCH (09:40)
[2017-06-25] MEDS: HYDROCODONE/ACETAMINOPHEN 5-325 MG TABLET PO PRN ×2 (09:40→22:51)
[2017-06-25] MEDS: PREDNISONE 1 MG TABLET PO SCH (09:41)
[2017-06-25] MEDS: LOSARTAN POTASSIUM 25 MG TABLET PO SCH ×2 (09:41→21:56)
[2017-06-25 10:27] LABS: HEMOGLOBIN 12.8 g/dL (13.5-17.0); HGB HCT DIFFERENCE -0.6; MEAN CORPUSCULAR HEMOGLOBIN 28.6 pg (27.0-33.4); MEAN CORPUSCULAR HGB CONC 32.8 g/dL (32.0-36.0); MEAN CORPUSCULAR VOLUME 87 fl (80-97); RED BLOOD COUNT 4.48 10^6/uL (4.35-5.55); RED CELL DISTRIBUTION WIDTH 16.3 % (11.5-14.0); WHITE BLOOD COUNT 8.3 10^3/uL (4.0-10.5)
[2017-06-25 10:49] LABS: ANION GAP 17 (5-19); BLOOD UREA NITROGEN 43 mg/dL (7-20); CALCIUM 9.2 mg/dL (8.4-10.2); CARBON DIOXIDE 23 mmol/L (22-30); CHLORIDE 92 mmol/L (98-107); CREATININE RESULT 2.14 mg/dL (0.52-1.25); GLUCOSE 141 mg/dL (75-110); SODIUM 131.5 mmol/L (137-145)
[2017-06-25] MEDS ORDERED: FUROSEMIDE INJ/PF 20 MG/2 ML SDV IV ONE (15:00)
[2017-06-26 05:57] LABS: ANION GAP 13 (5-19); BLOOD UREA NITROGEN 48 mg/dL (7-20); CALCIUM 9.5 mg/dL (8.4-10.2); CARBON DIOXIDE 21 mmol/L (22-30); CHLORIDE 96 mmol/L (98-107); CREATININE RESULT 2.36 mg/dL (0.52-1.25); GLUCOSE 124 mg/dL (75-110); POTASSIUM 5.3 mmol/L (3.6-5.0); SODIUM 130.1 mmol/L (137-145)
[2017-06-26] MEDS: HEPARIN SOD (PORCINE) 5,000 UNIT/ML 1 ML SYRINGE SUBCUT SCH ×3 (06:09→23:34)
--- NOTE | 2017-06-26 11:05 | PDOC PROGRESS REPORT ---
Subjective Progress Note for:: 06/26/17 Subjective:: Patient resting comfortably and the recliner. Still complaining of pain and swelling of the left knee. Reason For Visit: CHF EXACERBATION, ACUTE RENAL FAILURE Physical Exam Vital Signs: Temp Pulse Resp BP Pulse Ox 37.5 C 60 16 117/83 98 06/26/17 07:55 06/26/17 07:55 06/26/17 07:55 06/26/17 07:55 06/26/17 07:55 Intake & Output 06/25/17 06/26/17 06/27/17 06:59 06:59 06:59 Intake Total 1230 846 Output Total 1115 1880 Balance 115 -1034 Weight 121.4 kg 120.4 kg General appearance: PRESENT: no acute distress Adult Front & Back Image: 1 - +3/10 effusion of the left knee. -15 of extension to about 70 of flexion. Positive crepitus neurovascular intact distally. Post aspiration range of motion increased to about 90 before he had pain. Additonal comments: Left knee was prepped with alcohol and Betadine. After identifying the left knee is a correct site a sterile 18-gauge and 60 cc syringe was inserted in the superior lateral aspect of the knee and 80 cc of bloody effusion was aspirated. Fluid was sent for analysis and 4 x 4 dressing and Riky bandage compressive dressing was applied. Results Laboratory Results: 06/25/17 10:08 06/26/17 05:08 06/26/17 05:08 Sodium 130.1 L Potassium 5.3 H Chloride 96 L Carbon Dioxide 21 L Anion Gap 13 BUN 48 H Creatinine 2.36 H Est GFR ( Amer) 34 L Est GFR (Non-Af Amer) 28 L Glucose 124 H Calcium 9.5 Impressions: Lung Scan-VQ NM 06/21/17 00:00 IMPRESSION: Low probability for pulmonary embolus. Chest X-Ray 06/21/17 04:06 IMPRESSION: No significant interval change. 2010 [employer]- All Rights Reserved Head CT 06/21/17 04:07 IMPRESSION: No acute findings. Knee X-Ray 06/21/17 04:25 IMPRESSION: Small moderate bilateral knee effusions. Mild/moderate osteoarthritis. 2010 [employer]- All Rights Reserved Carotid Doppler Study 06/24/17 00:00 IMPRESSION: NO HEMODYNAMICALLY SIGNIFICANT STENOSIS. Assessment & Plan - Diagnosis (1) Knee effusion Qualifiers: Laterality: bilateral Qualified Code(s): M25.461 - Effusion, right knee; M25.462 - Effusion, left knee; M25.462 - Effusion, left knee Is this a current diagnosis for this admission?: Yes (2) Primary osteoarthritis of both knees Is this a current diagnosis for this admission?: Yes - Plan Summary Plan Summary: 62-year-old gentleman with left knee arthritis and effusion who successfully tolerated 80 cc aspiration of the hemarthrosis. Hemarthrosis second to fall and syncopal episode. Patient has compressive dressing. He can weight-bear as tolerated and take Percocet for pain control. Recommend anti-inflammatories once kidney function tolerates. Will monitor the fluid analysis. Recommend physical therapy for range of motion and assessment of safety.
[2017-06-26 12:01] LABS: OTHER CRYSTALS NONE OBSERVED
[2017-06-26] MEDS ORDERED: OXYCODONE-ACETAMINOPHEN 5-325 MG TABLET PO ONE (12:30)
[2017-06-26] MEDS: AMIODARONE HCL 200 MG TABLET PO SCH (12:49)
[2017-06-26] MEDS: PREDNISONE 1 MG TABLET PO SCH (12:50)
[2017-06-26] MEDS: DOCUSATE SODIUM 100 MG CAPSULE PO SCH (12:51)
[2017-06-26] MEDS: LOSARTAN POTASSIUM 25 MG TABLET PO SCH ×2 (12:52→23:44)
[2017-06-26] MEDS: NITROGLYCERIN 5 MG (0.2 MG/HR) PATCH.TD24 TD SCH (12:53)
[2017-06-26 13:08] LABS: FLUID TYPE SYNOVIAL; STAIN REACTIVITY CHECK ACCEPTABLE
[2017-06-26 13:09] LABS: FLUID RBC DILUENT USED SALINE; FLUID RBC SIDE 1 460; FLUID RBC SIDE 2 424
[2017-06-26 13:12] LABS: FLUID APPEARANCE CLOUDY
[2017-06-26 13:13] LABS: TOTAL RBC SQUARES COUNTED FLD 25
[2017-06-26 13:25] LABS: FLUID RBC DILUTION FACTOR 20
[2017-06-26] MEDS: METOPROLOL SUCCINATE 50 MG TAB.SR.24H PO SCH (14:34)
--- NOTE | 2017-06-26 14:49 | PDOC PROGRESS REPORT ---
Subjective Subjective:: Patient seen in chair patient with a known history of acute on chronic renal failure stage III slowly improving. He continues to have a good bit of fluid in his bilateral lower extremities and a productive cough. 06/26/17 patient seen in chair unable to move his left leg. Orthopedics was going to see him today. Patient had a low-grade temp 99.2. Definitely had left joint effusion secondary to a fall. 80 cc was aspirated out by the surgeon Dr. Manuel . He did not think it looked infected. We will send it off for culture sensitivity and workup. Hold discharge for now Reason For Visit: CHF EXACERBATION, ACUTE RENAL FAILURE Physical Exam Vital Signs: Temp Pulse Resp BP Pulse Ox 99.5 F 60 16 117/83 98 06/26/17 07:55 06/26/17 07:55 06/26/17 07:55 06/26/17 07:55 06/26/17 07:55 Intake & Output 06/25/17 06/26/17 06/27/17 06:59 06:59 06:59 Intake Total 1230 846 Output Total 1115 1880 Balance 115 -1034 Weight 121.4 kg 120.4 kg Results Laboratory Results: 06/25/17 10:08 06/26/17 05:08 06/26/17 05:08 Sodium 130.1 L Potassium 5.3 H Chloride 96 L Carbon Dioxide 21 L Anion Gap 13 BUN 48 H Creatinine 2.36 H Est GFR ( Amer) 34 L Est GFR (Non-Af Amer) 28 L Glucose 124 H Calcium 9.5 Impressions: Lung Scan-VQ NM 06/21/17 00:00 IMPRESSION: Low probability for pulmonary embolus. Chest X-Ray 06/21/17 04:06 IMPRESSION: No significant interval change. 2010 [employer]- All Rights Reserved Head CT 06/21/17 04:07 IMPRESSION: No acute findings. Knee X-Ray 06/21/17 04:25 IMPRESSION: Small moderate bilateral knee effusions. Mild/moderate osteoarthritis. 2010 [employer]- All Rights Reserved Carotid Doppler Study 06/24/17 00:00 IMPRESSION: NO HEMODYNAMICALLY SIGNIFICANT STENOSIS. Assessment & Plan - Diagnosis (1) Acute on chronic renal failure Qualifiers: Acute renal failure type: with acute renal cortical necrosis Chronic kidney disease stage: stage 3 (moderate) Qualified Code(s): N17.1 - Acute kidney failure with acute cortical necrosis; N18.3 - Chronic kidney disease, stage 3 (moderate); N18.3 - Chronic kidney disease, stage 3 (moderate) Is this a current diagnosis for this admission?: Yes Plan: Monitor patient's BMP in a.m. we will give him some IV Lasix due to his fluid swelling and quite dyspnea on 06/25 Much [id number] today. Patient's renal function continues to be about the same having some hyperkalemia we will plan to repeat that if still elevated will need to treat with some Kayexalate. Patient high risk for acute tubular necrosis to his acute on chronic renal failure so we have asked the surgeon to go ahead and aspirate his left knee and hold discharge for now. Continued to be monitored renal function. May need nephrology consult if available. (2) Acute exacerbation of congestive heart failure Qualifiers: Congestive heart failure type: unspecified congestive heart failure type Qualified Code(s): I50.9 - Heart failure, unspecified Is this a current diagnosis for this admission?: Yes (3) Diabetes Qualifiers: Diabetes mellitus type: type 1 Diabetes mellitus complication status: without complication Qualified Code(s): E10.9 - Type 1 diabetes mellitus without complications Is this a current diagnosis for this admission?: Yes (4) Knee effusion Qualifiers: Laterality: bilateral Qualified Code(s): M25.461 - Effusion, right knee; M25.462 - Effusion, left knee; M25.462 - Effusion, left knee Is this a current diagnosis for this admission?: Yes Plan: Patient states he is going to come in with some fluid from his joint today. Unable to move his left leg much getting worse. Recommend him getting tap prior to going home due to he may not be able to go to the clinic outpatient high risk that this would become a septic joint. Riky bandage wrap dry and intact. Patient states his leg and the pain feels much better pain is all gone. Will order physical therapy and he will need a walker go home with. (5) Leg pain Qualifiers: Laterality: right Qualified Code(s): M79.604 - Pain in right leg Is this a current diagnosis for this admission?: Yes (6) Primary osteoarthritis of both knees Is this a current diagnosis for this admission?: Yes (7) Syncope Qualifiers: Syncope type: unspecified Qualified Code(s): R55 - Syncope and collapse Is this a current diagnosis for this admission?: Yes
[2017-06-27] MEDS: HYDROCODONE/ACETAMINOPHEN 5-325 MG TABLET PO PRN ×3 (00:18→17:45)
[2017-06-27 05:45] LABS: ABSOLUTE BASOPHILS # (AUTO) 0.1 10^3/uL (0.0-0.2); ABSOLUTE EOSINOPHILS # (AUTO) 0.1 10^3/uL (0.0-0.6); ABSOLUTE LYMPHOCYTES (AUTO) 0.8 10^3/uL (0.5-4.7); ABSOLUTE MONOCYTES (AUTO) 1.1 10^3/uL (0.1-1.4); ABSOLUTE NEUT (AUTO) 5.4 10^3/uL (1.7-8.2); BASOPHILS % (AUTO) 1.5 % (0-2); EOSINOPHILS % (AUTO) 1.8 % (0-6); HEMATOCRIT 36.1 % (37.9-51.0); HEMOGLOBIN 12.3 g/dL (13.5-17.0); HGB HCT DIFFERENCE 0.8; MEAN CORPUSCULAR HEMOGLOBIN 29.6 pg (27.0-33.4); MEAN CORPUSCULAR HGB CONC 34.1 g/dL (32.0-36.0); MEAN CORPUSCULAR VOLUME 87 fl (80-97); MONOCYTES % (AUTO) 14.7 % (3-13); RED BLOOD COUNT 4.16 10^6/uL (4.35-5.55); RED CELL DISTRIBUTION WIDTH 15.7 % (11.5-14.0); WHITE BLOOD COUNT 7.6 10^3/uL (4.0-10.5)
[2017-06-27 06:06] LABS: ANION GAP 13 (5-19); BLOOD UREA NITROGEN 43 mg/dL (7-20); CALCIUM 9.1 mg/dL (8.4-10.2); CARBON DIOXIDE 24 mmol/L (22-30); CHLORIDE 95 mmol/L (98-107); GLUCOSE 142 mg/dL (75-110); POTASSIUM 5.4 mmol/L (3.6-5.0); SODIUM 131.8 mmol/L (137-145)
[2017-06-27] MEDS: HEPARIN SOD (PORCINE) 5,000 UNIT/ML 1 ML SYRINGE SUBCUT SCH ×3 (06:17→20:59)
[2017-06-27] MEDS: LOSARTAN POTASSIUM 25 MG TABLET PO SCH ×2 (09:50→20:59)
[2017-06-27] MEDS: METOPROLOL SUCCINATE 50 MG TAB.SR.24H PO SCH (09:52)
[2017-06-27] MEDS: PREDNISONE 1 MG TABLET PO SCH (09:53)
[2017-06-27] MEDS: NITROGLYCERIN 5 MG (0.2 MG/HR) PATCH.TD24 TD SCH (09:53)
[2017-06-27] MEDS: AMIODARONE HCL 200 MG TABLET PO SCH (09:53)
[2017-06-27] MEDS: DOCUSATE SODIUM 100 MG CAPSULE PO SCH (09:53)
[2017-06-27] MEDS: INSULIN LISPRO 100 UNIT/ML 3 ML VIAL SUBCUT PRN (12:05)
[2017-06-27] MEDS ORDERED: SODIUM POLYSTYRENE SULFONATE 15 GM/60 ML PO ONE (18:44)
--- NOTE | 2017-06-27 18:51 | PDOC PROGRESS REPORT ---
Subjective Progress Note for:: 06/27/17 Subjective:: Patient seen in chair patient with a known history of acute on chronic renal failure stage III slowly improving. He continues to have a good bit of fluid in his bilateral lower extremities and a productive cough. 06/26/17 patient seen in chair unable to move his left leg. Orthopedics was going to see him today. Patient had a low-grade temp 99.2. Definitely had left joint effusion secondary to a fall. 80 cc was aspirated out by the surgeon Dr. Manuel . He did not think it looked infected. We will send it off for culture sensitivity and workup. Hold discharge for now Reason For Visit: CHF EXACERBATION, ACUTE RENAL FAILURE most likely secondary to acute tubular necrosis from us joint effusion, diabetes and hypertension poorly controlled at home. Physical Exam Vital Signs: Temp Pulse Resp BP Pulse Ox 97.4 F 59 L 18 112/85 98 06/27/17 15:50 06/27/17 15:50 06/27/17 15:50 06/27/17 15:50 06/27/17 15:50 Intake & Output 06/26/17 06/27/17 06/28/17 06:59 06:59 06:59 Intake Total 846 600 490 Output Total 1880 900 450 Balance -1034 -300 40 Weight 120.4 kg 120.6 kg Results Laboratory Results: 06/27/17 05:14 06/27/17 05:14 06/27/17 06/27/17 05:14 05:14 WBC 7.6 RBC 4.16 L Hgb 12.3 L Hct 36.1 L MCV 87 MCH 29.6 MCHC 34.1 RDW 15.7 H Plt Count 174 Seg Neutrophils % 71.0 Lymphocytes % 11.0 L Monocytes % 14.7 H Eosinophils % 1.8 Basophils % 1.5 Absolute Neutrophils 5.4 Absolute Lymphocytes 0.8 Absolute Monocytes 1.1 Absolute Eosinophils 0.1 Absolute Basophils 0.1 Sodium 131.8 L Potassium 5.4 H Chloride 95 L Carbon Dioxide 24 Anion Gap 13 BUN 43 H Creatinine 2.30 H Est GFR ( Amer) 35 L Est GFR (Non-Af Amer) 29 L Glucose 142 H Calcium 9.1 Impressions: Lung Scan-VQ NM 06/21/17 00:00 IMPRESSION: Low probability for pulmonary embolus. Chest X-Ray 06/21/17 04:06 IMPRESSION: No significant interval change. 2010 [employer]- All Rights Reserved Head CT 06/21/17 04:07 IMPRESSION: No acute findings. Knee X-Ray 06/21/17 04:25 IMPRESSION: Small moderate bilateral knee effusions. Mild/moderate osteoarthritis. 2010 [employer]- All Rights Reserved Carotid Doppler Study 06/24/17 00:00 IMPRESSION: NO HEMODYNAMICALLY SIGNIFICANT STENOSIS. Assessment & Plan - Diagnosis (1) Acute exacerbation of congestive heart failure Qualifiers: Congestive heart failure type: unspecified congestive heart failure type Qualified Code(s): I50.9 - Heart failure, unspecified Is this a current diagnosis for this admission?: Yes Plan: Patient has a very low EF and was recommended this patient be started on Entresto. However he has no health insurance and suspect that this medication will not be covered outpatient. Patient has a EF of less than 20% with severe dysfunction via echocardiogram. Currently not being followed by [employer] consultant but will consult them in am. (2) Hyperkalemia Is this a current diagnosis for this admission?: Yes Plan: Potassium was 5.4 today I will give him some Kayexalate reevaluate again in the a.m. Will ask nephrology to see patient in the morning. (3) Acute on chronic renal failure Qualifiers: Acute renal failure type: with acute renal cortical necrosis Chronic kidney disease stage: stage 3 (moderate) Qualified Code(s): N17.1 - Acute kidney failure with acute cortical necrosis; N18.3 - Chronic kidney disease, stage 3 (moderate); N18.3 - Chronic kidney disease, stage 3 (moderate) Is this a current diagnosis for this admission?: Yes Plan: Monitor patient's BMP in a.m. we will give him some IV Lasix due to his fluid swelling and quite dyspnea on 06/25 Much /16 today. Patient's renal function continues to be about the same having some hyperkalemia we will plan to repeat that if still elevated will need to treat with some Kayexalate. Patient high risk for acute tubular necrosis to his acute on chronic renal failure so we have asked the surgeon to go ahead and aspirate his left knee and hold discharge for now. Continued to be monitored renal function. May need nephrology consult if available. Patient needed Kayexalate today for hyperkalemia reevaluate in a.m. (4) Diabetes Qualifiers: Diabetes mellitus type: type 1 Diabetes mellitus complication status: without complication Qualified Code(s): E10.9 - Type 1 diabetes mellitus without complications Is this a current diagnosis for this admission?: Yes (5) Knee effusion Qualifiers: Laterality: bilateral Qualified Code(s): M25.461 - Effusion, right knee; M25.462 - Effusion, left knee; M25.462 - Effusion, left knee Is this a current diagnosis for this admission?: Yes (6) Leg pain Qualifiers: Laterality: right Qualified Code(s): M79.604 - Pain in right leg Is this a current diagnosis for this admission?: Yes (7) Primary osteoarthritis of both knees Is this a current diagnosis for this admission?: Yes (8) Syncope Qualifiers: Syncope type: unspecified Qualified Code(s): R55 - Syncope and collapse Is this a current diagnosis for this admission?: Yes (9) Hyperkalemia, diminished renal excretion Is this a current diagnosis for this admission?: Yes Plan: Give patient Kayexalate tonight. Recheck potassium in the a.m. Nephrology consult in a.m.
[2017-06-28] MEDS: HEPARIN SOD (PORCINE) 5,000 UNIT/ML 1 ML SYRINGE SUBCUT SCH ×3 (05:26→21:48)
[2017-06-28] MEDS: HYDROCODONE/ACETAMINOPHEN 5-325 MG TABLET PO PRN (05:32)
[2017-06-28 06:17] LABS: ANION GAP 13 (5-19); BLOOD UREA NITROGEN 42 mg/dL (7-20); CARBON DIOXIDE 25 mmol/L (22-30); CHLORIDE 98 mmol/L (98-107); CREATININE RESULT 2.18 mg/dL (0.52-1.25); GLUCOSE 119 mg/dL (75-110); POTASSIUM 4.8 mmol/L (3.6-5.0); SODIUM 135.5 mmol/L (137-145)
[2017-06-28 06:22] LABS: HEMATOCRIT 34.1 % (37.9-51.0); HEMOGLOBIN 11.5 g/dL (13.5-17.0); HGB HCT DIFFERENCE 0.4; MEAN CORPUSCULAR HEMOGLOBIN 29.4 pg (27.0-33.4); MEAN CORPUSCULAR HGB CONC 33.6 g/dL (32.0-36.0); MEAN CORPUSCULAR VOLUME 87 fl (80-97)
[2017-06-28 06:56] LABS: ABSOLUTE EOSINOPHILS# (MANUAL) 0.2 10^3/uL (0.0-0.6); BASOPHILS % (MANUAL) 0 % (0-2); EOSINOPHILS % (MANUAL) 2 % (0-6); LYMPHOCYTES % (MANUAL) 16 % (13-45); TOTAL CELLS COUNTED 100
[2017-06-28 06:59] LABS: ANISOCYTOSIS 1+; OVALOCYTES SLIGHT; POLYCHROMASIA SLIGHT
[2017-06-28] MEDS: NITROGLYCERIN 5 MG (0.2 MG/HR) PATCH.TD24 TD SCH (09:36)
[2017-06-28] MEDS: METOPROLOL SUCCINATE 50 MG TAB.SR.24H PO SCH (09:37)
[2017-06-28] MEDS: AMIODARONE HCL 200 MG TABLET PO SCH (09:39)
[2017-06-28] MEDS: DOCUSATE SODIUM 100 MG CAPSULE PO SCH (09:39)
[2017-06-28] MEDS: LOSARTAN POTASSIUM 25 MG TABLET PO SCH ×2 (09:40→21:42)
[2017-06-28] MEDS: PREDNISONE 1 MG TABLET PO SCH (09:46)
[2017-06-28] MEDS ORDERED: MAGNESIUM HYDROXIDE SUSP 30 ML UDCUP PO PRN (12:00)
[2017-06-28] MEDS: INSULIN LISPRO 100 UNIT/ML 3 ML VIAL SUBCUT PRN ×2 (13:15→16:38)
--- NOTE | 2017-06-28 15:29 | PDOC PROGRESS REPORT ---
Subjective Progress Note for:: 06/28/17 Subjective:: Is a follow-up visit for congestive heart failure. The patient states that he feels better and that he has been ambulating. He also had aspiration of the knee joint. Cultures are pending. No acute events overnight. Reason For Visit: CHF EXACERBATION, ACUTE RENAL FAILURE Physical Exam Vital Signs: Temp Pulse Resp BP Pulse Ox 97.4 F 60 16 107/79 95 06/28/17 11:26 06/28/17 14:00 06/28/17 11:26 06/28/17 11:26 06/28/17 11:26 Intake & Output 06/27/17 06/28/17 06/29/17 06:59 06:59 06:59 Intake Total 600 1060 Output Total 900 450 Balance -300 610 Weight 120.6 kg 120.7 kg GENERAL: Is a well-developed and nourished appearing overweight - [place] male resting in his recliner currently in no acute distress. HEART: Regular rate and rhythm. No murmurs, rubs or gallops. LUNGS: Clear to auscultation bilaterally with equal rise and fall of the chest. ABDOMEN: Soft, nontender, nondistended with normoactive bowel sounds EXTREMETIES: No clubbing, cyanosis. Trace lower extremity edema. His knees are not warm to the touch or swollen.. 2+ peripheral pulses bilaterally. NEURO: Awake, alert and oriented 3. Cranial nerves II through XII are grossly intact. Results Laboratory Results: 06/28/17 05:05 06/28/17 05:05 06/28/17 06/28/17 05:05 05:05 WBC 8.0 RBC 3.90 L Hgb 11.5 L Hct 34.1 L MCV 87 MCH 29.4 MCHC 33.6 RDW 16.0 H Plt Count 183 Seg Neutrophils % Not Reportable Lymphocytes % Not Reportable Monocytes % Not Reportable Eosinophils % Not Reportable Basophils % Not Reportable Absolute Neutrophils Not Reportable Absolute Lymphocytes Not Reportable Absolute Monocytes Not Reportable Absolute Eosinophils Not Reportable Absolute Basophils Not Reportable Sodium 135.5 L Potassium 4.8 Chloride 98 Carbon Dioxide 25 Anion Gap 13 BUN 42 H Creatinine 2.18 H Est GFR ( Amer) 37 L Est GFR (Non-Af Amer) 31 L Glucose 119 H Calcium 9.0 Impressions: Lung Scan-VQ NM 06/21/17 00:00 IMPRESSION: Low probability for pulmonary embolus. Chest X-Ray 06/21/17 04:06 IMPRESSION: No significant interval change. 2010 [employer]- All Rights Reserved Head CT 06/21/17 04:07 IMPRESSION: No acute findings. Knee X-Ray 06/21/17 04:25 IMPRESSION: Small moderate bilateral knee effusions. Mild/moderate osteoarthritis. 2010 [employer]- All Rights Reserved Carotid Doppler Study 06/24/17 00:00 IMPRESSION: NO HEMODYNAMICALLY SIGNIFICANT STENOSIS. Assessment & Plan - Diagnosis (1) Acute exacerbation of congestive heart failure Qualifiers: Congestive heart failure type: unspecified congestive heart failure type Qualified Code(s): I50.9 - Heart failure, unspecified Is this a current diagnosis for this admission?: Yes Plan: Continue diuresis. The patient has seen Dr. Quijano. Patient will not be able to afford and chest so. He follows at the [facility]. He will need follow-up there. Continue current medications. Continue NATALYA inhibitor and beta blockade. (2) Diabetes Qualifiers: Diabetes mellitus type: type 1 Diabetes mellitus complication status: without complication Qualified Code(s): E10.9 - Type 1 diabetes mellitus without complications Is this a current diagnosis for this admission?: Yes Plan: Continue sliding scale insulin. (3) Primary osteoarthritis of both knees Is this a current diagnosis for this admission?: Yes Plan: Status post aspiration. Await cultures. The patient's knee does not look acutely infected. (4) Syncope Qualifiers: Syncope type: unspecified Qualified Code(s): R55 - Syncope and collapse Is this a current diagnosis for this admission?: Yes Plan: Resolved. (5) Acute on chronic renal failure Qualifiers: Acute renal failure type: with acute renal cortical necrosis Chronic kidney disease stage: stage 3 (moderate) Qualified Code(s): N17.1 - Acute kidney failure with acute cortical necrosis; N18.3 - Chronic kidney disease, stage 3 (moderate); N18.3 - Chronic kidney disease, stage 3 (moderate) Is this a current diagnosis for this admission?: Yes Plan: I suspect the patient is at baseline. In review of his chart he has been hovering around 1.8-2 in the past. (6) Hyperkalemia Is this a current diagnosis for this admission?: Yes Plan: Resolved. (7) Knee effusion Qualifiers: Laterality: bilateral Qualified Code(s): M25.461 - Effusion, right knee; M25.462 - Effusion, left knee; M25.462 - Effusion, left knee Is this a current diagnosis for this admission?: Yes - Time Time Spent with patient: 15-24 minutes Anticipated discharge: Home - Inpatient Certification Based on my medical assessment, after consideration of the patient's comorbidities, presenting symptoms, or acuity I expect that the services needed warrant INPATIENT care.: Yes Medical Necessity: Need Close Monitoring Due to Risk of Patient Decompensation
[2017-06-28] MEDS ORDERED: IPRATROPIUM/ALBUTEROL 0.5-2.5 MG/3 ML AMPUL NEB PRN (20:33)
[2017-06-28] MEDS: ACETAMINOPHEN 325 MG TABLET PO PRN (21:48)
[2017-06-28] MEDS ORDERED: BENZONATATE 100 MG CAPSULE PO PRN (22:35)
--- NOTE | 2017-06-29 04:58 | CONSULTATION REPORT E ---
Consultation Report NAME: KILEY DAWSON : 1955 AGE: 62Y DATE: 06/28/2017 TO: BENIGNO SHEPPARD M.D. FROM: Requesting Physician REASON FOR CONSULTATION: Syncope and acute on chronic left ventricular and right ventricular systolic failure in a patient with severe pulmonary hypertension and severely reduced LV ejection fraction. HISTORY OF PRESENT ILLNESS: The patient is a 62-year-old -[place] male with a history of hypertension, history of congestive heart failure, history of AICD placement for cardiomyopathy, dilated nonischemic; and history of stage 3 chronic kidney disease and rheumatoid arthritis, who states that he had a syncopal episode on 06/21/17 when he had increasing shortness of breath and when he tried to walk, he became syncopal. He is not able to say how long he was unconscious, but he had no chest pain or discomfort. There was no firing of his AICD. There was no PND but the patient has chronic orthopnea. The patient does state that his leg swelling had increased. He also was complaining of swelling of both the knees with pain. PAST MEDICAL HISTORY: Positive for: 1. Hypertension. 2. Hyperlipidemia. 3. No history of coronary artery disease or AZ. 4. Dilated cardiomyopathy and had an AICD placed. This has not fired. No history of atrial fibrillation or flutter. This is the first episode of syncope. 5. Severe pulmonary hypertension by echocardiography, most likely secondary to rheumatoid arthritis. 6. History of rheumatoid arthritis. He states his rheumatoid arthritis is in remission except for the bilateral knee effusion and knee pain which could be due to rheumatoid arthritis. 7. Steroid induced hyperglycemia but no prior history of diabetes mellitus. 8. No history of thyroid disease. 9. Denies any sleep apnea. 10. Chronic kidney disease stage 3. 11. No history of TIA or CVA. 12. No history of anxiety or depression. PAST SURGICAL HISTORY: Positive for: 1. Cardiac catheterization which showed no coronary artery disease as per the patient. 2. History of AICD placement. SOCIAL HISTORY: The patient quit smoking a long time ago. ADVANCED DIRECTIVE: The patient is FULL CODE and his sister is the surrogate healthcare decision maker. FAMILY HISTORY: Positive for arthritis, CAD, COPD, and rheumatoid arthritis. ALLERGIES: No known drug allergies. REVIEW OF SYSTEMS: CONSTITUTIONAL: She denies any fever, chills, or rigors. Complains of weight gain and also complains of generalized fatigue and weakness. EYES: No history of amblyopia or diplopia. No history of amaurosis fugax. HEAD: No history of headaches or dizziness. No history of head injury. EARS: No history of hearing loss. No history of tinnitus. No history of recurrent ear infections. NOSE: No history of hay fever. No history of nosebleeds. No nasal polyps. MOUTH: No history of altered taste sensation. No bleeding from the gums. No ulcers in the mouth. THROAT: No odynophagia or dysphagia. No history of recurrent sore throats. SKIN: No history of skin rashes or petechiae or ecchymosis. No history of pruritus. No history of yellowish discoloration of the skin. NECK: No history of neck pain. No history of goiter. LUNGS: No history of asthma or COPD. No history of sleep apnea. No history of pulmonary embolism. No history of pleuritic chest pain. No symptoms suggestive of a URI or LRI or pneumonia. No hemoptysis. Note that the patient has severe pulmonary hypertension on recent echo; please see report below. CARDIAC: History of dilated cardiomyopathy with severely reduced LV ejection fraction, nonischemic. The patient has no history of coronary artery disease or AZ. He has an AICD which has not fired. He has hypertension and also hyperlipidemia. He had several episodes of acute on chronic, what seems to be, biventricular failure by description. First episode of syncope, most likely related to pulmonary hypertension since he has severe shortness of breath, and when he tried to ambulate, he had a syncopal episode. He does have leg edema. He has chronic orthopnea. He did have PND which is now resolved. He denies any palpitations. GI: No history of fatty food intolerance. No history of abdominal pain. No history of GI bleed. No history of jaundice. No history of cirrhosis. No history of altered bowel movements. MUSCULOSKELETAL: History of rheumatoid arthritis present. He has bilateral knee effusions and knee pain. RENAL: History of chronic kidney disease stage 3. No symptoms of UTI. No history of hematuria, pyuria, or dysuria. The patient had in the past an ultrasound of the kidneys which showed an enlarged prostate. CENTRAL NERVOUS SYSTEM: No history of TIA or CVA. No history of sleep apnea. No history of gait imbalance. No history of headaches, migraines, or seizures. PSYCHIATRIC: No history of anxiety or depression. No history of suicidal ideation or homicidal ideation. VASCULAR: No history of calf or buttock claudication but the patient does not walk much. No history of DVT. HEMATOLOGIC: No history of bleeding diathesis. No history of clotting disorders. MEDICATIONS: 1. Tylenol 650 mg p.o. q.4 h. p.r.n. 2. Amiodarone 200 mg p.o. daily. 3. Glucose 40% gel, 30 grams and 15 grams p.o. p.r.n. hypoglycemia. 4. Dextrose 50%, 12.5 grams and 25 grams IV push p.r.n. hypoglycemia. 5. Glucagon 1 mg IM p.r.n. hypoglycemia. 6. Heparin 5000 units subcutaneously q.8 h. 7. Flu vaccine 0.5 mL on the day of discharge intramuscularly. 8. Accu-Cheks a.c., t.i.d., and adjust with sliding scale insulin coverage. 9. Losartan 25 mg p.o. q.12 h. 10. Metoprolol succinate/Toprol XL 200 mg p.o. daily. 11. Deltasone 1 mg p.o. daily. 12. Sucralfate 1 gram p.o. a.c. and at bedtime p.r.n. 13. Nitro-Dur patch transdermally, 1 each to chest wall daily. PHYSICAL EXAMINATION: GENERAL: The patient is moderately obese, at present in no acute distress. VITAL SIGNS: He is afebrile with a temperature of 97.4 degrees Fahrenheit, pulse is 60 beats per minute, blood pressure 107/79, respirations are 18 per minute, O2 saturation 95% on room air. HEAD: Atraumatic, normocephalic. EYES: Pupils are equal, round, regular, reactive to light and accommodation. Extraocular movements are normal. There is no conjunctival pallor. There is no scleral icterus. EARS: Tympanic membranes are intact. External auditory canals are clear. NOSE: There is no deviated nasal septum. There is no inflammation of the nasal mucous membranes. MOUTH: Mucous membranes of the mouth are moist. Tongue is moist. There are no ulcers. There is no bleeding from the gums. THROAT: There is no redness of the oropharynx. There is no exudate. SKIN: There are no skin rashes. There is no petechiae or ecchymosis. There are no skin lesions. NECK: Supple. There is mild JVD present. Carotids are equal. There is no bruit. There is no goiter. There is no lymphadenopathy. Trachea is central. LUNGS: At present, clear to auscultation and percussion without any rhonchi, rales, or wheezing. There are no rales or CHF at present. HEART: S1, S2 is heard. There is no S3 gallop. There is no S4 gallop. There is a systolic murmur in the left sternal border and the apex. There is no rub. ABDOMEN: Soft, mildly obese, nontender. There is no hepatosplenomegaly. There are no masses. There is no rebound, guarding, or rigidity. Bowel sounds are well heard. EXTREMITIES: Femorals are diminished. There is no femoral bruit. Leg pulses are diminished. There is 1+ edema bilaterally. There is no cyanosis or clubbing. There is no DVT or cellulitis. There is no calf tenderness. CENTRAL NERVOUS SYSTEM: The patient is conscious, awake, alert, oriented x3 with no focal deficit. IMAGING STUDIES: The patient's initial chest x-ray shows cardiomegaly and congestive heart failure. The patient's pulmonary ventilation perfusion scan shows low probability for thrombus. The patient's initial EKG shows sinus rhythm, IVCD, *------* atypical LVBB. The patient's knee x-ray shows small moderate bilateral knee effusion, mild to moderate osteoarthritis. The patient's head CT shows mild white matter microangiopathy, arthrosclerosis related to mass effect, midline shift, no hemorrhage or infarct. No acute findings. The patient's venous Doppler study showed no evidence of DVT or obstruction in bilateral lower extremities. Pulse *------* was noted in lower extremity vein. This can have a number of causes. The patient's echogram shows moderate to severely dilated left ventricle. There is no LVH. The left ventricular systolic function is less than 20%. There is no thrombus. The left atrium is moderately dilated. There is no evidence of mitral valve prolapse. There is a mild amount of mitral regurgitation. There is no aortic valve stenosis. There is no aortic regurgitation. There is no tricuspid stenosis. There is moderate to severe amount of tricuspid regurgitation. There is severe pulmonary hypertension by echo. The right ventricular systolic pressure is 64 mmHg with a diameter of 20 mm of beta. There is a mild amount of pulmonic regurgitation. The inferior vena cava appears to be dilated and did not change with respiration; hence, the right atrial pressure is greater than 20. There is no pericardial effusion. The patient's carotid Doppler shows no significant stenosis. 24-HOUR INTAKE/OUTPUT: Intake has been 1060 mL, output is 450 mL. LABORATORY DATA: Sodium 135.5, potassium 4.8, chloride 98, CO2 25, BUN 42, creatinine 2.18, GFR is reduced at 37 which is chronic kidney disease stage 3, glucose is 118, calcium is 9.0. White count is 8,000, hemoglobin 11.5, hematocrit is 34.1, platelet count is 183,000. The patient's synovial knee shows that the color is red, it's cloudy, white count is 7,200, RBC is 88,400, neutrophils are 46, lymphocytes are 41, fluid monocytes are 13. There are no fluid crystals or calcium for pyrophosphate crystals or synovial monosodium urate. The patient was seen by Orthopedics and their consult has been reviewed. DIAGNOSIS: Primary osteoarthritis of both knees, and the knees have been tapped. IMPRESSION: 1. Syncope, most likely secondary to severe pulmonary hypertension. 2. Congestive heart failure, acute on chronic systolic left ventricular failure, at present compensated. 3. Acute on chronic systolic right ventricular failure secondary to severe pulmonary hypertension. Still some evidence of elevated JVD and pedal edema, and hence not fully compensated. 4. Severe pulmonary hypertension. 5. Dilated cardiomyopathy. 6. AICD. 7. Chronic kidney disease stage 3. 8. Rheumatoid arthritis. 9. Bilateral chronic knee effusions and pain secondary to primary osteoarthritis of the knee. 10. Hyperglycemia secondary to steroids. Note that the patient is on amiodarone. Most likely the patient had ventricular tachycardia in the past but the patient is not able to give a history. Would recommend getting LFTs and thyroid function test in view of the patient being on amiodarone. Also, later we will get a full pulmonary function test with DLCO. Would get the AIDD integrated to make sure that the syncope was not due to ventricular tachycardia or ventricular fibrillation since the patient may not remember that the AICD had fired. Note that the patient has an IVCD on his EKG of the left bundle branch block pattern, and hence, we will discuss with the EP Cardiology at [facility], to see if the patient may benefit from a biventricular pacemaker. We will stop the patient's nitroglycerin. We will increase the patient's Cozaar. After 48 hours of stopping nitrate, we will start the patient on Sildenafil to see if that will help. TIME SPENT: Note: The patient was seen at 11:00 a.m., with 15 minutes spent on this patient with more than 50% of the time spent in direct patient care. His old records have been reviewed, and I have reviewed his current laboratory and imaging results and echo reports. His medications have been reviewed and adjusted. Note, medical decision making is of high complexity. Discussed with other caregiving providers on the case. Note that the patient is a FULL CODE and his sister is the surrogate healthcare decision maker. DICTATING PHYSICIAN: BENIGNO SHEPPARD M.D. [id number] PHY#: [id number] ID: [id number] JOB#: [id number] ACCT: [id number] cc:BENIGNO SHEPPARD M.D. > MTDD
[2017-06-29] MEDS: ACETAMINOPHEN 325 MG TABLET PO PRN (05:35)
[2017-06-29] MEDS: HEPARIN SOD (PORCINE) 5,000 UNIT/ML 1 ML SYRINGE SUBCUT SCH ×2 (05:35→14:26)
[2017-06-29 06:02] LABS: ALANINE AMINOTRANSFERASE 48 U/L (21-72); ALBUMIN 3.9 g/dL (3.5-5.0); ALKALINE PHOSPHATASE 199 U/L (38-126); ANION GAP 15 (5-19); ASPARTATE AMINO TRANSFERASE 42 U/L (17-59); BILIRUBIN,DIRECT 0.6 mg/dL (0.0-0.4); BILIRUBIN,TOTAL 1.1 mg/dL (0.2-1.3); BLOOD UREA NITROGEN 39 mg/dL (7-20); CALCIUM 9.2 mg/dL (8.4-10.2); CARBON DIOXIDE 24 mmol/L (22-30); CHLORIDE 96 mmol/L (98-107); CREATININE RESULT 2.08 mg/dL (0.52-1.25); GLUCOSE 114 mg/dL (75-110); POTASSIUM 4.8 mmol/L (3.6-5.0); SODIUM 135.2 mmol/L (137-145); TOTAL PROTEIN 8.5 g/dL (6.3-8.2)
[2017-06-29 06:03] LABS: MAGNESIUM 2.1 mg/dL (1.6-2.3)
[2017-06-29 06:17] LABS: FREE T3 2.28 pg/mL (2.77-5.27)
[2017-06-29 06:31] LABS: THYROID STIMULATING HORMONE 6.44 uIU/mL (0.47-4.68)
[2017-06-29 06:51] LABS: HEMATOCRIT 35.6 % (37.9-51.0); HEMOGLOBIN 12.1 g/dL (13.5-17.0); HGB HCT DIFFERENCE 0.7; MEAN CORPUSCULAR HEMOGLOBIN 29.6 pg (27.0-33.4); MEAN CORPUSCULAR HGB CONC 33.9 g/dL (32.0-36.0); MEAN CORPUSCULAR VOLUME 87 fl (80-97); RED BLOOD COUNT 4.08 10^6/uL (4.35-5.55); RED CELL DISTRIBUTION WIDTH 16.3 % (11.5-14.0); WHITE BLOOD COUNT 7.7 10^3/uL (4.0-10.5)
[2017-06-29 07:02] LABS: ABSOLUTE EOSINOPHILS# (MANUAL) 0.2 10^3/uL (0.0-0.6); BASOPHILS % (MANUAL) 0 % (0-2); EOSINOPHILS % (MANUAL) 2 % (0-6); LYMPHOCYTES % (MANUAL) 15 % (13-45); TOTAL CELLS COUNTED 100
[2017-06-29 07:03] LABS: ANISOCYTOSIS 1+; OVALOCYTES SLIGHT; PLATELET CLUMPS PRESENT; POIKILOCYTOSIS SLIGHT; POLYCHROMASIA SLIGHT
[2017-06-29] MEDS: METOPROLOL SUCCINATE 50 MG TAB.SR.24H PO SCH (10:35)
[2017-06-29] MEDS: LOSARTAN POTASSIUM 25 MG TABLET PO SCH (10:35)
[2017-06-29] MEDS: DOCUSATE SODIUM 100 MG CAPSULE PO SCH (10:36)
[2017-06-29] MEDS: AMIODARONE HCL 200 MG TABLET PO SCH (10:36)
[2017-06-29] MEDS: PREDNISONE 1 MG TABLET PO SCH (10:37)
[2017-06-29 11:26] VITALS: BP 103/74
--- NOTE | 2017-06-29 13:16 | PDOC DISCHARGE SUMMARY ---
General - Admit/Disc Date/PCP Admission Date/Primary Care Provider: 06/22/17 08:59 Discharge Date: 06/29/17 - Discharge Diagnosis (1) Acute exacerbation of congestive heart failure Is this a current diagnosis for this admission?: Yes (2) Diabetes Is this a current diagnosis for this admission?: Yes (3) Primary osteoarthritis of both knees Is this a current diagnosis for this admission?: Yes (4) Syncope Is this a current diagnosis for this admission?: Yes (5) Acute on chronic renal failure Is this a current diagnosis for this admission?: Yes (6) Hyperkalemia Is this a current diagnosis for this admission?: Yes (7) Knee effusion Is this a current diagnosis for this admission?: Yes - Additional Information Resuscitation Status: Full Code Discharge Diet: Cardiac, Diabetic Discharge Activity: Activity As Tolerated, Balance Activity w/Rest, Weigh Daily Home Medications: Amiodarone HCl [Cordarone 200 mg Tablet] 200 mg PO Q12 06/21/17 Furosemide [Lasix 20 mg Tablet] 20 mg PO DAILY 06/21/17 Metoprolol Succinate [Toprol XL 200 mg Tablet] 200 mg PO DAILY 06/21/17 Prednisone [Deltasone 1 mg Tablet] 1 mg PO DAILY 06/21/17 Sucralfate [Carafate 1 gm Tablet] 1 gm PO MEALSHS PRN 06/21/17 History of Present Illness History of Present Illness: KILEY DAWSON is a 62 year old -[place] male who presented with syncope. Please see the details of the patient's admission as outlined by the admitting physician below. Admission Date/PCP: 06/21/17 06:18 Patient complains of: Syncope History of Present Illness: KILEY DAWSON is a 62 year old male with a past medical history of congestive heart failure status post permanent pacemaker and AICD placement, stage III chronic kidney disease and rheumatoid arthritis. Patient presents after a syncopal episode occurring with severe dyspnea on ambulation. He denies chest pain, palpitations, focal weakness nausea or vomiting. Admits a similar episode remotely and occasional orthostasis. He denies recent change in medications and feels well with exception to bilateral knee and leg pain. In the emergency room he is found to have acute on chronic renal failure, massive cardiomegaly, pulmonary vascular congestion and referred her to the hospitalist for admission. Hospital Course Hospital Course: The patient was initially admitted for observation on telemetry. Echocardiogram was obtained as well as Dopplers. His pacemaker was also interrogated on this admission. He was felt to have acute exacerbation of his systolic heart failure. Cardiology was consulted. VQ scan was also obtained which showed low probability of PE. The patient was continued on his amiodarone , Inspra, losartan and nitroglycerin transdermal patch. The patient was gently diuresed with IV Lasix. Was noted that he had acute renal failure and several nephrotoxic agents were avoided. Lasix was given with caution. The patient complained of bilateral knee pain as well. It was felt to be secondary to a fall during his syncopal event. X-ray of the knees showed moderate osteoarthritis. The patient was initially treated with Tylenol and oxycodone. Riky wrap was applied to the left knee to help with effusion. The patient was changed to inpatient status the next day. Carotid Dopplers came back negative. Echocardiogram showed EF less than 20%. Dr. Quijano did follow along and want to see the patient has an out patient in the office. The patient continued to complain of knee pain especially on the left side. Therefore orthopedic consult was placed. Patient had his knee tapped. Thus far nothing has grown out and this appears to be a knee effusion without any acute infection. Overall the patient did well. He diuresed well. His acute renal failure is felt to be at baseline at the time of discharge. Creatinine is 2.03 with stage III CKD. On previous visits it is noted that the patient's creatinine is around this. The patient is felt to be ready for discharge with appropriate follow-up. Physical Exam Vital Signs: Temp Pulse Resp BP Pulse Ox 97.3 F 65 18 103/74 97 06/29/17 11:25 06/29/17 11:25 06/29/17 11:25 06/29/17 11:25 06/29/17 11:25 Intake & Output 06/28/17 06/29/17 06/30/17 06:59 06:59 06:59 Intake Total 1060 1260 Output Total 450 Balance 610 1260 Weight 120.7 kg 120.7 kg GENERAL: Is a well-developed and nourished appearing overweight - [place] male resting in bed in no acute distress. HEART: Regular rate and rhythm. No murmurs, rubs or gallops. LUNGS: Clear to auscultation bilaterally with equal rise and fall of the chest. ABDOMEN: Soft, nontender, nondistended with normoactive bowel sounds EXTREMETIES: No clubbing, cyanosis. Trace lower extremity edema. His knees are not warm to the touch. The left knee looks slightly puffier today than yesterday. Slight erythema to the vincent on that side. No warmth. 2+ peripheral pulses bilaterally. NEURO: Awake, alert and oriented 3. Cranial nerves II through XII are grossly intact. Results Laboratory Results: 06/29/17 04:55 06/29/17 04:55 06/29/17 06/29/17 06/29/17 04:55 04:55 04:55 WBC 7.7 RBC 4.08 L Hgb 12.1 L Hct 35.6 L MCV 87 MCH 29.6 MCHC 33.9 RDW 16.3 H Plt Count 169 Seg Neutrophils % Not Reportable Lymphocytes % Not Reportable Monocytes % Not Reportable Eosinophils % Not Reportable Basophils % Not Reportable Absolute Neutrophils Not Reportable Absolute Lymphocytes Not Reportable Absolute Monocytes Not Reportable Absolute Eosinophils Not Reportable Absolute Basophils Not Reportable Sodium 135.2 L Potassium 4.8 Chloride 96 L Carbon Dioxide 24 Anion Gap 15 BUN 39 H Creatinine 2.08 H Est GFR ( Amer) 39 L Est GFR (Non-Af Amer) 32 L Glucose 114 H Calcium 9.2 Magnesium 2.1 Total Bilirubin 1.1 AST 42 ALT 48 Alkaline Phosphatase 199 H Total Protein 8.5 H Albumin 3.9 TSH 6.44 H Free T4 2.04 Free T3 pg/mL 2.28 L Impressions: Lung Scan-VQ NM 06/21/17 00:00 IMPRESSION: Low probability for pulmonary embolus. Chest X-Ray 06/21/17 04:06 IMPRESSION: No significant interval change. 2010 [employer]- All Rights Reserved Head CT 06/21/17 04:07 IMPRESSION: No acute findings. Knee X-Ray 06/21/17 04:25 IMPRESSION: Small moderate bilateral knee effusions. Mild/moderate osteoarthritis. 2010 [employer]- All Rights Reserved Carotid Doppler Study 06/24/17 00:00 IMPRESSION: NO HEMODYNAMICALLY SIGNIFICANT STENOSIS. Qualifiers PATEINT BEING DISCHARGED WITH ANY OF THE FOLLOWING DIAGNOSIS?: Heart Failure Plan Time Spent: Less than 30 Minutes
== END 2017-06-29 14:50 | disposition home or self-care (01) | DRG 291 ==
LOC: ER 03:21 → EH 06:18 → 4W 16:06 → OBSVTOIN 06-22 08:59 → 4S 06-23 16:32
PROVIDERS: ADMIT Internal Medicine; ATTEND Internal Medicine
PROC: 0S9D3ZX Drainage of Left Knee Joint, Percutaneous Approach, Diagnostic (ICD-10-PCS; principal; 2017-06-26)
DX: I13.0 Hypertensive heart and chronic kidney disease with heart failure and stage 1 through stage 4 chronic kidney disease, or unspecified chronic kidney disease (principal); I50.23 Acute on chronic systolic (congestive) heart failure; N17.1 Acute kidney failure with acute cortical necrosis; M25.062 Hemarthrosis, left knee; E87.5 Hyperkalemia; R55 Syncope and collapse; I27.20 Pulmonary hypertension, unspecified; M17.0 Bilateral primary osteoarthritis of knee; E11.22 Type 2 diabetes mellitus with diabetic chronic kidney disease; N18.3 Chronic kidney disease, stage 3 (moderate); I48.0 Paroxysmal atrial fibrillation; E86.0 Dehydration; M25.462 Effusion, left knee; M25.461 Effusion, right knee; Z87.891 Personal history of nicotine dependence; Z95.0 Presence of cardiac pacemaker
CPT/HCPCS: 36415; 70450; 71010; 78582; 80048; 80053; 80076; 81001; 82550; 82553; 82803; 82962; 83036; 83735; 83880; 84132; 84439; 84443; 84481; 84484; 85025; 85027; 85652; 87070; 87075; 87205; 89050; 89060; 90686; 93005; 93010; 93306; 93880; 93970; 99285; A9540; A9567; G0378; J1644; J1815; J1940; J3490; J7512; Q9969

== ENCOUNTER → 2017-07-14 | Outpatient (CLI) | payer MEDICAID, OTHER ==
[~2017-07-14] MED LIST: ALBUTEROL SULFATE 0.083% NEB 2.5 MG/3 ML AMPUL NEB ONE
--- NOTE | 2017-07-14 15:42 | PULMONARY FUNCTION TEST ---
DATE OF SERVICE: 07/14/2017 THE VITAL CAPACITY IS MODERATELY DECREASED. THE EXPIRATORY FLOW RATES ARE MODERATELY DECREASED. THE FEV1/VC IS 84%, PREDICTED: 79% LUNG VOLUMES BY NITROGEN WASH OUT METHOD SHOW: TLC IS 66% OF PREDICTED FRC IS 82% OF PREDICTED RV IS 80% OF PREDICTED THE DLCO IS 18.1, 64% OF PREDICTED. THE RV/TLC RATIO IS 44% PREDICTED 39% AFTER BRONCHODILATOR, EXPIRATORY FLOW RATES SHOW NO SIGNIFICANT CHANGE. IMPRESSION: GOOD PATIENT EFFORT. MODERATE RESTRICTIVE DEFECT; DIFFUSING CAPACITY IS MODERATELY DECREASED. NO PREVIOUS STUDIES ARE AVAILABLE FOR COMPARISON. CC: BENIGNO SHEPPARD MD > SIMONE
== END ==
LOC: RT 07:52
PROVIDERS: ATTEND Specialist
DX: Z79.899 Other long term (current) drug therapy (principal); I50.9 Heart failure, unspecified; N18.9 Chronic kidney disease, unspecified
CPT/HCPCS: 94060; 94727; 94729

== ENCOUNTER 2017-07-26 20:19 | Inpatient (IN) | payer MEDICAID, OTHER ==
[2017-07-26] MEDS ORDERED: ONDANSETRON HCL INJ/PF 4 MG/2 ML SDV IV ONE (22:28)
[2017-07-26] MEDS ORDERED: MECLIZINE HCL 12.5 MG TABLET PO ONE (22:28)
--- NOTE | 2017-07-26 23:11 | RADIOLOGY REPORT (SQ) ---
EXAM DESCRIPTION: CT HEAD WITHOUT CLINICAL HISTORY: 62 years Male, recurrent dizziness COMPARISON: June 21, 2017. TECHNIQUE: No contrast. Coronal and sagittal reformat. This exam was performed according to our departmental dose-optimization program, which includes automated exposure control, adjustment of the mA and/or kV according to patient size and/or use of iterative reconstruction technique. FINDINGS: Atherosclerosis. Mild white matter microangiopathy. No hemorrhage or infarct. No mass, mass effect, or midline shift. Extra-axial structures appear otherwise grossly intact. IMPRESSION: No acute findings.
[2017-07-26 23:14] LABS: ABSOLUTE BASOPHILS # (AUTO) 0.1 10^3/uL (0.0-0.2); ABSOLUTE LYMPHOCYTES (AUTO) 0.8 10^3/uL (0.5-4.7); ABSOLUTE NEUT (AUTO) 5.6 10^3/uL (1.7-8.2); BASOPHILS % (AUTO) 0.8 % (0-2); EOSINOPHILS % (AUTO) 0.6 % (0-6); HEMATOCRIT 42.1 % (37.9-51.0); HEMOGLOBIN 13.8 g/dL (13.5-17.0); LYMPHOCYTES % (AUTO) 10.5 % (13-45); MEAN CORPUSCULAR HEMOGLOBIN 29.1 pg (27.0-33.4); MEAN CORPUSCULAR HGB CONC 32.8 g/dL (32.0-36.0); MEAN CORPUSCULAR VOLUME 89 fl (80-97); MONOCYTES % (AUTO) 13.2 % (3-13); PLATELET COUNT 170 10^3/uL (150-450); RED BLOOD COUNT 4.75 10^6/uL (4.35-5.55); RED CELL DISTRIBUTION WIDTH 16.3 % (11.5-14.0); SEGMENTED NEUTROPHILS % (AUTO) 74.9 % (42-78); TOTAL CELLS COUNTED % (AUTO) 100 %; WHITE BLOOD COUNT 7.5 10^3/uL (4.0-10.5)
[2017-07-26] MEDS ORDERED: MECLIZINE HCL 12.5 MG TABLET ONE (23:17)
[2017-07-26 23:34] LABS: ALANINE AMINOTRANSFERASE 46 U/L (21-72); ALBUMIN 4.5 g/dL (3.5-5.0); ALKALINE PHOSPHATASE 168 U/L (38-126); ANION GAP 16 (5-19); ASPARTATE AMINO TRANSFERASE 45 U/L (17-59); BILIRUBIN,DIRECT 0.7 mg/dL (0.0-0.4); BLOOD UREA NITROGEN 54 mg/dL (7-20); CALCIUM 9.9 mg/dL (8.4-10.2); CARBON DIOXIDE 23 mmol/L (22-30); CHLORIDE 105 mmol/L (98-107); GLUCOSE 124 mg/dL (75-110); LIPASE 371.5 U/L (23-300); MAGNESIUM 2.1 mg/dL (1.6-2.3); POTASSIUM 4.4 mmol/L (3.6-5.0); SODIUM 144.4 mmol/L (137-145); TOTAL PROTEIN 9.6 g/dL (6.3-8.2)
--- NOTE | 2017-07-26 23:34 | RADIOLOGY REPORT (SQ) ---
EXAM DESCRIPTION: CHEST SINGLE VIEW CLINICAL HISTORY: 62 years, Male, recurrent dizziness and vomiting COMPARISON: 06/21/2017. 06/09/2017. FINDINGS: Moderate to severe enlargement of the cardiac silhouette. Small left suprahilar streakiness. Left cardiac stimulation device and leads. Moderate lung volume. Mild disc desiccation. IMPRESSION: No significant interval change. 2011 [employer]- All Rights Reserved
--- NOTE | 2017-07-27 01:27 | ER Document Report ---
ED General - General Chief Complaint: Dizziness Stated Complaint: VOMITING,DIZZINESS Time Seen by Provider: 07/26/17 21:58 Notes: She is a 62-year-old male who presents with complaint of nausea vomiting dizziness. He says he has been dizziness for several months but he is noticing last 24 hours has become nauseous vomiting is been unable to walk. Typically walks without a walker or cane. He lives by himself. He says his cousin will occasionally come check on him. No abdominal pain. No chest pain. No shortness of breath. He has not noticed weakness worse on one side versus the other. He denies previous history of stroke. No other complaints at this time. He says he is to have primary care doctor but he lost his insurance and now he goes to the [facility]. TRAVEL OUTSIDE OF THE [place] IN LAST 30 DAYS: No - Related Data Allergies/Adverse Reactions: No Known Allergies Allergy (Verified 07/27/17 05:17) Past Medical History - Social History Smoking Status: Unknown if Ever Smoked Frequency of alcohol use: None Drug Abuse: None Family History: Arthritis, CAD, COPD Patient has suicidal ideation: No Patient has homicidal ideation: No - Past Medical History Cardiac Medical History: Reports: Hx Congestive Heart Failure, Hx Hypercholesterolemia, Hx Hypertension Pulmonary Medical History: Reports: Hx Pneumonia Denies: Hx Tuberculosis Endocrine Medical History: Reports: Hx Diabetes Mellitus Type 2 Renal/ Medical History: Denies: Hx Peritoneal Dialysis Musculoskeltal Medical History: Reports Hx Arthritis Traumatic Medical History: Reports: Hx Fractures - foot 30 yrs ago Past Surgical History: Reports: Hx Cardiac Surgery - paced/defib x2, Hx Pacemaker - Immunizations Hx Diphtheria, Pertussis, Tetanus Vaccination: No - unk Hx Pneumococcal Vaccination: 02/13/16 Review of Systems - Review of Systems Notes: My Normal Review Basic REVIEW OF SYSTEMS: CONSTITUTIONAL : Denies fever, chills, or sweats. Denies recent illness. EENT: Denies eye, ear, throat, or mouth pain or symptoms. Denies nasal or sinus congestion. RESPIRATORY: Denies cough, cold, or chest congestion. Denies shortness of breath, difficulty breathing, or wheezing. GASTROINTESTINAL: Denies abdominal pain. Denies nausea, vomiting, or diarrhea. GENITOURINARY: Denies difficulty urinating, painful urination, burning, frequency, or blood in urine. MUSCULOSKELETAL: Denies neck or back pain or joint pain or swelling. SKIN: Denies rash or skin lesions. NEUROLOGICAL: Denies altered mental status or loss of consciousness. Denies headache. dizziness. Difficulty ambulating. Weakness throughout. ALL OTHER SYSTEMS REVIEWED AND NEGATIVE. Physical Exam - Vital signs Vitals: Temp Pulse Resp BP Pulse Ox 97.5 F 94 12 125/92 H 97 07/26/17 21:39 07/26/17 21:39 07/26/17 21:39 07/26/17 21:39 07/26/17 21:39 - Notes Notes: General Appearance: Well nourished, alert, cooperative, no acute distress, no obvious discomfort. Weak appearing. Vitals: reviewed, See vital signs table. Head: no swelling or tenderness to the head Eyes: PERRL, EOMI, Conjuctiva clear Mouth: No decreasd moisture Throat: No tonsillar inflammation, No airway obstruction, No lymphadenopathy Neck: Supple, no neck tenderness, Lungs: No wheezing, No rales, No rhonci, No accessory muscle use, good air exchange bilaterally. Heart: Normal rate, Regular rythm, No murmur, no rub Abdomen: Normal BS, soft, No rigidity, No abdominal tenderness, No guarding, no rebound, no abdominal masses, no organomegaly Extremities: strength 5/5 in all extremities, good pulses in all extremities, no swelling or tenderness in the extremities, no edema. Skin: warm, dry, appropriate color, no rash Neuro: speech clear, oriented x 3, normal affect, responds appropriately to questions. No nerves II through XII are intact. Patient is globally very weak. When I stand him up to try to get him to walk he is unable to support himself on his legs even with me in a tech trying to lift him up. Patient does have difficulty doing finger to nose routine. No nystagmus on lateral gaze. Course - Re-evaluation Re-evalutation: 07/27/17 02:[address] scans are negative. I have attempted to stand the patient up. He is not able to get up on his feet off the bed at all. He very much staggers and starts to fall medially as he is tries to stand up. This is with me in a tach even try to help him stand. Patient lives by himself. The exact cause of his acute attacks is not clear. His vomiting is under control now. We will speak with the hospitalist about admission. 07/27/17 05:40 Patient is very weak and unable to even stand on his own. He had some vomiting but this is now under control after Reglan given by the embolus. He said no further vomiting. There is concerns for possible cerebellar stroke. Still very difficult to determine exactly when the symptoms were started as he is felt dizzy for months but had some more acute-like symptoms that occurred approximately [address]. [address] he is not a thrombolytic candidate. I did talk with Dr. Green, hospitalist, who agreed to admit the patient. Dictation of this chart was performed using voice recognition software; therefore, there may be some unintended grammatical errors. 07/27/17 05:41 - Vital Signs Vital signs: Temp Pulse Resp BP Pulse Ox 97.9 F 60 14 123/89 H 97 07/27/17 04:55 07/27/17 04:00 07/27/17 04:55 07/27/17 04:55 07/27/17 04:55 - Laboratory Result Diagrams: 07/26/17 22:57 07/26/17 22:57 Laboratory results interpreted by me: 07/26/17 07/26/17 07/26/17 22:57 22:57 22:57 RDW 16.3 H Lymphocytes % 10.5 L Monocytes % 13.2 H BUN 54 H Creatinine 2.53 H Est GFR ( Amer) 31 L Est GFR (Non-Af Amer) 26 L Glucose 124 H Phosphorus 4.7 H Direct Bilirubin 0.7 H Alkaline Phosphatase 168 H Total Protein 9.6 H Lipase 371.5 H TSH 07/26/17 22:57 RDW Lymphocytes % Monocytes % BUN Creatinine Est GFR ( Amer) Est GFR (Non-Af Amer) Glucose Phosphorus Direct Bilirubin Alkaline Phosphatase Total Protein Lipase TSH 7.14 H - EKG Interpretation by Me Additional EKG results interpreted by me: 07/27/17 01:26 EKG is reviewed and interpreted by me. EKG shows a paced rhythm with a rate of [address] segment changes comparison to his previous old EKG. TX interval is prolonged. QRS duration QTc intervals are prolonged. Old EKG for comparison is from June 21, 2017. Discharge - Discharge Clinical Impression: Weakness Stroke Qualifiers: CVA mechanism: unspecified Qualified Code(s): I63.9 - Cerebral infarction, unspecified Vomiting Qualifiers: Vomiting type: unspecified Vomiting Intractability: unspecified Nausea presence : unspecified Qualified Code(s): R11.10 - Vomiting, unspecified Condition: Stable Disposition: ADMITTED OBSERVATION Admitting Provider: Hospitalist Unit Admitted: Telemetry
[2017-07-27 01:57] LABS: APPEARANCE,URINE CLEAR; BILIRUBIN,URINE NEGATIVE (NEGATIVE); COLOR,URINE YELLOW; GLUCOSE, URINE NEGATIVE (NEGATIVE); KETONES,URINE NEGATIVE (NEGATIVE); LEUKOCYTE ESTERASE,URINE NEGATIVE (NEGATIVE); NITRITE,URINE NEGATIVE (NEGATIVE); PROTEIN,URINE NEGATIVE (NEGATIVE); URINE SPECIFIC GRAVITY 1.013; UROBILINOGEN,URINE NEGATIVE mg/dL (<2.0)
[2017-07-27] MEDS ORDERED: NORMAL SALINE 250 ML IV ONE (02:23)
[2017-07-27] MEDS ORDERED: NORMAL SALINE 1000 ML 1,000 ML IV ONE (03:11)
[2017-07-27] MEDS ORDERED: DOCUSATE SODIUM 100 MG CAPSULE PO PRN (03:18)
[2017-07-27] MEDS ORDERED: LABETALOL HCL INJ 20 MG/4 ML DISP.SYRIN IV PRN (03:18)
[2017-07-27] MEDS ORDERED: ACETAMINOPHEN 325 MG TABLET PO PRN (03:18)
[2017-07-27] MEDS ORDERED: DEXTROSE 50%-WATER 25 GM/50 ML DISP.SYRIN IV PRN ×2 (03:24)
[2017-07-27] MEDS ORDERED: GLUCAGON,HUMAN RECOMB 1 MG INJ IM PRN (03:24)
[2017-07-27] MEDS ORDERED: DEXTROSE 40% GEL 15 GM TUBE PO PRN ×2 (03:24)
[2017-07-27] MEDS ORDERED: ASPIRIN 325 MG TABLET, ENT COATED PO ONE (03:45)
[2017-07-27] MEDS: ONDANSETRON HCL INJ/PF 4 MG/2 ML SDV IV PRN (04:00)
[2017-07-27] MEDS: NORMAL SALINE 1000 ML 1,000 ML IV PRN (04:34)
[2017-07-27 05:42] LABS: CHOLESTEROL 100.61 mg/dL (0-200); TRIGLYCERIDES 78 mg/dL (<150)
[2017-07-27 05:50] LABS: CREATINE KINASE MB 0.65 ng/mL (<4.55); TROPONIN I 0.013 ng/mL
[2017-07-27 05:52] LABS: DIRECT LDL 47 mg/dL (<100)
[2017-07-27] MEDS: HEPARIN SOD (PORCINE) 5,000 UNIT/ML 1 ML SYRINGE SUBCUT SCH ×3 (06:18→23:29)
--- NOTE | 2017-07-27 07:27 | PDOC H&P ---
History of Present Illness Admission Date/PCP: [facility] History of Present Illness: KILEY DAWSON is a 62 year old male who is an exceptionally poor historian but I am able to elucidate from his past record and from discussing with him that he has history of diabetes mellitus, hypertension, congestive heart failure, thyroid dysfunction, and possibly atrial fibrillation who presents to the emergency department with complaints of nausea vomiting and weakness. He reports significant vertigo. Patient reports that he was unable to get out of bed today he became dizzy and fell on the carpet. He denies any loss of consciousness. He admits to vertigo. He reports that this happened proximally for 5 months ago but he did not tell anybody. He also reports that he has had this rash on his bilateral arms for about 10 months. He reports shortness of breath over the last 5 months and occasionally increasing leg swelling. He is referred to the hospitalist service for possible CVA. Past Medical History Cardiac Medical History: Reports: Congestive Heart Failure, Hyperlipidema, Hypertension Pulmonary Medical History: Reports: Pneumonia Denies: Tuberculosis Endocrine Medical History: Reports: Diabetes Mellitus Type 2 Musculoskeltal Medical History: Reports: Arthritis Past Surgical History Past Surgical History: Reports: Pacemaker Social History Smoking Status: Unknown if Ever Smoked Frequency of Alcohol Use: None Hx Recreational Drug Use: No Drugs: None Hx Prescription Drug Abuse: No - Advance Directive Resuscitation Status: Full Code Surrogate healthcare decision maker:: Mae Dawson, sister Family History Family History: Arthritis, CAD, COPD Parental Family History Reviewed: Yes Children Family History Reviewed: NA Sibling(s) Family History Reviewed.: Yes Medication/Allergy Home Medications: Amiodarone HCl [Cordarone 200 mg Tablet] 200 mg PO Q12 06/21/17 Furosemide [Lasix 20 mg Tablet] 20 mg PO DAILY 06/21/17 Metoprolol Succinate [Toprol XL 200 mg Tablet] 200 mg PO DAILY 06/21/17 Prednisone [Deltasone 1 mg Tablet] 1 mg PO DAILY 06/21/17 Sucralfate [Carafate 1 gm Tablet] 1 gm PO MEALSHS PRN 06/21/17 Losartan Potassium [Cozaar 50 mg Tablet] 50 mg PO BID #60 tablet 06/29/17 Allergies/Adverse Reactions: No Known Allergies Allergy (Verified 07/27/17 05:17) Review of Systems Constitutional: ABSENT: chills, fever(s), headache(s), weight gain, weight loss Eyes: ABSENT: visual disturbances Ears: ABSENT: hearing changes Nose, Mouth, and Throat: PRESENT: vertigo Cardiovascular: ABSENT: chest pain, dyspnea on exertion, edema, orthropnea, palpitations Respiratory: PRESENT: dyspnea. ABSENT: cough, hemoptysis, sputum Gastrointestinal: ABSENT: abdominal pain, constipation, diarrhea, hematemesis, hematochezia, nausea, vomiting Genitourinary: ABSENT: dysuria, hematuria Musculoskeletal: ABSENT: joint swelling Integumentary: ABSENT: rash, wounds Neurological: PRESENT: frequent falls, syncope, vertigo, weakness. ABSENT: abnormal gait, abnormal speech, confusion, dizziness, focal weakness Psychiatric: ABSENT: anxiety, depression, homidical ideation, suicidal ideation Endocrine: ABSENT: cold intolerance, heat intolerance, polydipsia, polyuria Hematologic/Lymphatic: ABSENT: easy bleeding, easy bruising Physical Exam Vital Signs: Temp Pulse Resp BP Pulse Ox 97.5 F 94 12 125/92 H 97 07/26/17 21:39 07/26/17 21:45 07/26/17 21:39 07/26/17 21:39 07/26/17 21:39 General appearance: PRESENT: mild distress, obese, well-developed, well- nourished Head exam: PRESENT: atraumatic, normocephalic Eye exam: PRESENT: conjunctiva pink, EOMI, PERRLA, other - Lid lag. ABSENT: scleral icterus Ear exam: PRESENT: normal external ear exam Mouth exam: PRESENT: moist, tongue midline Neck exam: PRESENT: carotid bruit. ABSENT: JVD, lymphadenopathy, thyromegaly, tracheal deviation Respiratory exam: PRESENT: clear to auscultation alexys, unlabored. ABSENT: rales , rhonchi, wheezes Cardiovascular exam: PRESENT: RRR, +S1, +S2, systolic murmur. ABSENT: diastolic murmur, rubs Pulses: PRESENT: normal dorsalis pedis pul Vascular exam: PRESENT: normal capillary refill GI/Abdominal exam: PRESENT: normal bowel sounds, soft. ABSENT: distended, firm , guarding, mass, Lopez's sign, organolmegaly, rebound, rigid, tenderness Rectal exam: PRESENT: deferred Extremities exam: PRESENT: full ROM, +1 edema. ABSENT: clubbing, pedal edema Neurological exam: PRESENT: alert, awake, oriented to person, oriented to place , oriented to time, oriented to situation, ataxia, CN II-XII grossly intact, motor sensory deficit - Left lower extremity 3+ out of 5, right finger to nose, double vision, Psychiatric exam: PRESENT: appropriate affect, normal mood. ABSENT: homicidal ideation, suicidal ideation Skin exam: PRESENT: dry, intact, warm. ABSENT: cyanosis, rash Results Laboratory Results: 07/26/17 22:57 07/26/17 22:57 07/26/17 07/26/17 07/26/17 22:57 22:57 22:57 WBC 7.5 RBC 4.75 Hgb 13.8 Hct 42.1 MCV 89 MCH 29.1 MCHC 32.8 RDW 16.3 H Plt Count 170 Seg Neutrophils % 74.9 Lymphocytes % 10.5 L Monocytes % 13.2 H Eosinophils % 0.6 Basophils % 0.8 Absolute Neutrophils 5.6 Absolute Lymphocytes 0.8 Absolute Monocytes 1.0 Absolute Eosinophils 0.0 Absolute Basophils 0.1 Sodium 144.4 Potassium 4.4 Chloride 105 Carbon Dioxide 23 Anion Gap 16 BUN 54 H Creatinine 2.53 H Est GFR ( Amer) 31 L Est GFR (Non-Af Amer) 26 L Glucose 124 H Calcium 9.9 Phosphorus 4.7 H Magnesium 2.1 Total Bilirubin 1.0 AST 45 ALT 46 Alkaline Phosphatase 168 H Total Protein 9.6 H Albumin 4.5 Lipase 371.5 H Urine Color Urine Appearance Urine pH Ur Specific Downs Urine Protein Urine Glucose (UA) Urine Ketones Urine Blood Urine Nitrite Ur Leukocyte Esterase Urine WBC (Auto) Urine RBC (Auto) 07/27/17 00:52 WBC RBC Hgb Hct MCV MCH MCHC RDW Plt Count Seg Neutrophils % Lymphocytes % Monocytes % Eosinophils % Basophils % Absolute Neutrophils Absolute Lymphocytes Absolute Monocytes Absolute Eosinophils Absolute Basophils Sodium Potassium Chloride Carbon Dioxide Anion Gap BUN Creatinine Est GFR ( Amer) Est GFR (Non-Af Amer) Glucose Calcium Phosphorus Magnesium Total Bilirubin AST ALT Alkaline Phosphatase Total Protein Albumin Lipase Urine Color YELLOW Urine Appearance CLEAR Urine pH 5.0 Ur Specific Downs 1.013 Urine Protein NEGATIVE Urine Glucose (UA) NEGATIVE Urine Ketones NEGATIVE Urine Blood NEGATIVE Urine Nitrite NEGATIVE Ur Leukocyte Esterase NEGATIVE Urine WBC (Auto) 0 Urine RBC (Auto) 0 07/26/17 22:57 Troponin I 0.020 Impressions: Chest X-Ray 07/26/17 22:27 IMPRESSION: No significant interval change. 2010 [employer]- All Rights Reserved Head CT 07/26/17 22:27 IMPRESSION: No acute findings. Assessment & Plan - Diagnosis (1) Stroke Qualifiers: CVA mechanism: unspecified Qualified Code(s): I63.9 - Cerebral infarction, unspecified Is this a current diagnosis for this admission?: Yes Plan: Patient is unable to have an MRI secondary to his pacemaker. This patient on aspirin and Plavix. Monitor on telemetry for arrhythmia Questionable history of atrial fibrillation. Patient to be on high-dose Lipitor. repeat CT of the head. PT OT consultations. Obtain carotid Doppler (2) CHF (congestive heart failure) Qualifiers: Congestive heart failure type: unspecified Congestive heart failure chronicity: chronic Qualified Code(s): I50.9 - Heart failure, unspecified Is this a current diagnosis for this admission?: Yes (3) Abnormal thyroid blood test Is this a current diagnosis for this admission?: Yes Plan: Check free T4 and free T3 (4) Diabetes Qualifiers: Diabetes mellitus type: type 1 Diabetes mellitus complication status: without complication Qualified Code(s): E10.9 - Type 1 diabetes mellitus without complications Is this a current diagnosis for this admission?: Yes - Time Time Spent: 50 to 70 Minutes Medications reviewed and adjusted accordingly: Yes
[2017-07-27 07:58] LABS: FREE T3 2.43 pg/mL (2.77-5.27); FREE T4 (FREE THYROXINE) 1.87 ng/dL (0.78-2.19)
--- NOTE | 2017-07-27 09:46 | EKG REPORT ---
SEVERITY:- ABNORMAL ECG - ATRIAL AND VENTRICULAR-PACED COMPLEXES FIRST DEGREE AV BLOCK IVCD, CONSIDER ATYPICAL RBBB : Confirmed by: Noel Ortega 27-Jul-2017 09:45:09
--- NOTE | 2017-07-27 09:59 | RADIOLOGY REPORT (SQ) ---
EXAM DESCRIPTION: CT HEAD WITHOUT COMPLETED DATE/TIME: 07/27/2017 9:24 am REASON FOR STUDY: ? occipital cva COMPARISON: CT brain 07/26/2017, 06/21/2017 TECHNIQUE: Axial images acquired through the brain without intravenous contrast. Images reviewed wi th bone, brain and subdural windows. Images stored on PACS. All CT scanners at this facility use dose modulation, iterative reconstruction, and/or weight based d osing when appropriate to reduce radiation dose to as low as reasonably achievable (ALARA). [facility]: Dose Right [facility]: CareDose [facility]: Dose Right [facility]: Teradose 4D [facility]: [employer] RADIATION DOSE: CT Rad equipment meets quality standard of care and radiation dose reduction techniq ues were employed. CTDIvol: 64.6 mGy. DLP: 1163 mGy-cm. mGy. LIMITATIONS: Motion artifact FINDINGS: VENTRICLES: Normal size and contour. CEREBRUM: No masses. No hemorrhage. No midline shift. No evidence for acute infarction. Few stable scattered areas of low density in the white matter most likely chronic small vessel ischemic changes . CEREBELLUM: Interval development of low attenuation in the right superior cerebellar vermis best show n on axial images 14-17. This likely represents a early subacute infarct. There is an old lacunar infarct in the left cerebellar hemisphere unchanged. No hemorrhage mass effe ct or midline shift. EXTRAAXIAL SPACES: No fluid collections. No masses. ORBITS AND GLOBE: No intra- or extraconal masses. Normal contour of globe without masses. CALVARIUM: No fracture. PARANASAL SINUSES: No fluid or mucosal thickening. SOFT TISSUES: No mass or hematoma. OTHER: Heavily calcified parasellar carotid arteries. IMPRESSION: Early subacute infarct in the right cerebellar vermis, nonhemorrhagic. Stable left cerebellar hemisphere lacunar infarct and spotty bifrontal and biparietal chronic white m atter disease. EVIDENCE OF ACUTE STROKE: NO. COMMENT: Quality ID # [id number]: Final reports with documentation of one or more dose reduction techniques (e.g., Automated exposure control, adjustment of the mA and/or kV according to patient size, use of iterative reconstruction technique) TECHNICAL DOCUMENTATION: JOB ID: [id number] All Rights Reserved
[2017-07-27] MEDS: ASPIRIN 325 MG TABLET, ENT COATED PO SCH (10:32)
[2017-07-27] MEDS: AMIODARONE HCL 200 MG TABLET PO SCH ×2 (10:33→23:29)
[2017-07-27] MEDS: METOPROLOL SUCCINATE 50 MG TAB.SR.24H PO SCH (10:33)
[2017-07-27 12:53] LABS: CREATINE KINASE MB 0.79 ng/mL (<4.55); TROPONIN I 0.012 ng/mL
--- NOTE | 2017-07-27 12:58 | PDOC PROGRESS REPORT ---
Subjective Progress Note for:: 07/27/17 Subjective:: Patient continues to have complaints of feeling dizzy. Reason For Visit: ACUTE CVA WITH VESTIBULAR SYMPTOMS Physical Exam Vital Signs: Temp Pulse Resp BP Pulse Ox 97.9 F 60 16 120/88 H 95 07/27/17 04:55 07/27/17 12:23 07/27/17 12:01 07/27/17 12:23 07/27/17 12:01 Intake & Output 07/26/17 07/27/17 07/28/17 06:59 06:59 06:59 Weight 115.212 kg General appearance: PRESENT: no acute distress Eye exam: PRESENT: conjunctiva pink. ABSENT: scleral icterus Mouth exam: PRESENT: moist, tongue midline Neck exam: ABSENT: JVD Respiratory exam: PRESENT: accessory muscle use Cardiovascular exam: PRESENT: RRR. ABSENT: diastolic murmur, rubs, systolic murmur GI/Abdominal exam: PRESENT: normal bowel sounds, soft. ABSENT: distended, guarding, mass, organolmegaly, rebound, tenderness Extremities exam: ABSENT: calf tenderness, clubbing, pedal edema Neurological exam: PRESENT: alert, awake, oriented to person, oriented to place , oriented to time, oriented to situation, CN II-XII grossly intact, motor sensory deficit - Left leg weakness 3 out of 5 Psychiatric exam: PRESENT: appropriate affect Skin exam: PRESENT: dry, intact, warm. ABSENT: cyanosis, rash Results Laboratory Results: 07/27/17 07/27/17 05:06 05:56 Triglycerides 78 Cholesterol 100.61 LDL Cholesterol Direct 47 VLDL Cholesterol 16.0 HDL Cholesterol 30 L Free T4 1.87 Free T3 pg/mL 2.43 L 07/27/17 07/27/17 05:06 05:06 Creatine Kinase 64 CK-MB (CK-2) 0.65 Troponin I 0.013 Impressions: Chest X-Ray 07/26/17 22:27 IMPRESSION: No significant interval change. 2010 [employer]- All Rights Reserved Head CT 07/27/17 00:00 IMPRESSION: Early subacute infarct in the right cerebellar vermis, nonhemorrhagic. Stable left cerebellar hemisphere lacunar infarct and spotty bifrontal and biparietal chronic white matter disease. EVIDENCE OF ACUTE STROKE: NO. Assessment & Plan - Diagnosis (1) Stroke Qualifiers: CVA mechanism: unspecified Qualified Code(s): I63.9 - Cerebral infarction, unspecified Is this a current diagnosis for this admission?: Yes Plan: Patient clinically has had a CVA. However he has a pacemaker and cannot have MRI. He had carotid Dopplers done last month and we will not repeat those today. He already is on aspirin and Plavix and we will continue with those. Will start him with physical therapy and he probably will need rehab with placement. (2) Abnormal thyroid blood test Is this a current diagnosis for this admission?: Yes Plan: We will start on Synthroid (3) CHF (congestive heart failure) Qualifiers: Congestive heart failure type: unspecified Congestive heart failure chronicity: chronic Qualified Code(s): I50.9 - Heart failure, unspecified Is this a current diagnosis for this admission?: Yes Plan: Patient is euvolemic today. (4) Diabetes Qualifiers: Diabetes mellitus type: type 1 Diabetes mellitus complication status: without complication Qualified Code(s): E10.9 - Type 1 diabetes mellitus without complications Is this a current diagnosis for this admission?: Yes Plan: Continue with sliding scale insulin. - Time Time Spent with patient: 25-34 minutes - Inpatient Certification Medical Necessity: Need Close Monitoring Due to Risk of Patient Decompensation, Need for Neurological Checks
[2017-07-27 19:39] LABS: CREATINE KINASE MB 0.66 ng/mL (<4.55); TROPONIN I 0.013 ng/mL
[2017-07-27] MEDS: ATORVASTATIN CALCIUM 40 MG TABLET PO SCH (23:29)
[2017-07-27] MEDS: TRAMADOL HCL 50 MG TABLET PO PRN (23:35)
[2017-07-28 06:02] LABS: ABSOLUTE EOSINOPHILS # (AUTO) 0.1 10^3/uL (0.0-0.6); ABSOLUTE LYMPHOCYTES (AUTO) 1.1 10^3/uL (0.5-4.7); ABSOLUTE MONOCYTES (AUTO) 1.1 10^3/uL (0.1-1.4); ABSOLUTE NEUT (AUTO) 4.4 10^3/uL (1.7-8.2); BASOPHILS % (AUTO) 0.7 % (0-2); EOSINOPHILS % (AUTO) 0.8 % (0-6); HEMATOCRIT 38.8 % (37.9-51.0); HEMOGLOBIN 12.7 g/dL (13.5-17.0); LYMPHOCYTES % (AUTO) 16.5 % (13-45); MEAN CORPUSCULAR HEMOGLOBIN 28.9 pg (27.0-33.4); MEAN CORPUSCULAR HGB CONC 32.7 g/dL (32.0-36.0); MEAN CORPUSCULAR VOLUME 88 fl (80-97); MONOCYTES % (AUTO) 16.2 % (3-13); PLATELET COUNT 153 10^3/uL (150-450); RED BLOOD COUNT 4.39 10^6/uL (4.35-5.55); RED CELL DISTRIBUTION WIDTH 16.1 % (11.5-14.0); SEGMENTED NEUTROPHILS % (AUTO) 65.8 % (42-78); TOTAL CELLS COUNTED % (AUTO) 100 %; WHITE BLOOD COUNT 6.6 10^3/uL (4.0-10.5)
[2017-07-28 06:22] LABS: ANION GAP 13 (5-19); BLOOD UREA NITROGEN 43 mg/dL (7-20); CALCIUM 9.2 mg/dL (8.4-10.2); CARBON DIOXIDE 18 mmol/L (22-30); CHLORIDE 108 mmol/L (98-107); GLUCOSE 111 mg/dL (75-110); POTASSIUM 4.8 mmol/L (3.6-5.0); SODIUM 139.4 mmol/L (137-145)
[2017-07-28] MEDS: HEPARIN SOD (PORCINE) 5,000 UNIT/ML 1 ML SYRINGE SUBCUT SCH ×3 (06:32→21:47)
[2017-07-28] MEDS: NORMAL SALINE 1000 ML 1,000 ML IV PRN (06:35)
[2017-07-28] MEDS: ONDANSETRON HCL INJ/PF 4 MG/2 ML SDV IV PRN ×2 (08:39→14:17)
[2017-07-28] MEDS: METOPROLOL SUCCINATE 50 MG TAB.SR.24H PO SCH (09:28)
[2017-07-28] MEDS: ASPIRIN 325 MG TABLET, ENT COATED PO SCH (09:28)
[2017-07-28] MEDS: AMIODARONE HCL 200 MG TABLET PO SCH ×2 (09:28→21:47)
--- NOTE | 2017-07-28 11:30 | PDOC PROGRESS REPORT ---
Subjective Progress Note for:: 07/28/17 Subjective:: Patient still complains of weakness but it has improved by his report. Reason For Visit: ACUTE CVA WITH VESTIBULAR SYMPTOMS Physical Exam Vital Signs: Temp Pulse Resp BP Pulse Ox 98.0 F 60 16 118/82 100 07/28/17 07:37 07/28/17 08:00 07/28/17 08:00 07/28/17 08:00 07/28/17 08:00 Intake & Output 07/27/17 07/28/17 07/29/17 06:59 06:59 06:59 Intake Total 989 Output Total 1200 Balance -211 Weight 115.212 kg 122.4 kg General appearance: PRESENT: no acute distress Eye exam: PRESENT: conjunctiva pink. ABSENT: scleral icterus Mouth exam: PRESENT: moist, tongue midline Neck exam: ABSENT: JVD Respiratory exam: PRESENT: clear to auscultation alexys. ABSENT: rales, rhonchi, wheezes Cardiovascular exam: PRESENT: RRR. ABSENT: diastolic murmur, rubs, systolic murmur GI/Abdominal exam: PRESENT: normal bowel sounds, soft. ABSENT: distended, guarding, mass, organolmegaly, rebound, tenderness Extremities exam: ABSENT: calf tenderness, clubbing, pedal edema Neurological exam: PRESENT: alert, awake, oriented to person, oriented to place , oriented to time, oriented to situation, CN II-XII grossly intact, motor sensory deficit - Left lower extremity weak 4 out of 5 Psychiatric exam: PRESENT: appropriate affect Skin exam: PRESENT: dry, intact, warm. ABSENT: cyanosis, rash Results Laboratory Results: 07/28/17 05:36 07/28/17 05:36 07/28/17 07/28/17 05:36 05:36 WBC 6.6 RBC 4.39 Hgb 12.7 L Hct 38.8 MCV 88 MCH 28.9 MCHC 32.7 RDW 16.1 H Plt Count 153 Seg Neutrophils % 65.8 Lymphocytes % 16.5 Monocytes % 16.2 H Eosinophils % 0.8 Basophils % 0.7 Absolute Neutrophils 4.4 Absolute Lymphocytes 1.1 Absolute Monocytes 1.1 Absolute Eosinophils 0.1 Absolute Basophils 0.0 Sodium 139.4 Potassium 4.8 Chloride 108 H Carbon Dioxide 18 L Anion Gap 13 BUN 43 H Creatinine 2.20 H Est GFR ( Amer) 37 L Est GFR (Non-Af Amer) 30 L Glucose 111 H Calcium 9.2 07/27/17 07/27/17 07/27/17 05:06 05:06 11:51 Creatine Kinase 64 61 CK-MB (CK-2) 0.65 Troponin I 0.013 07/27/17 07/27/17 07/27/17 11:51 19:00 19:00 Creatine Kinase 67 CK-MB (CK-2) 0.79 0.66 Troponin I 0.012 0.013 Impressions: Chest X-Ray 07/26/17 22:27 IMPRESSION: No significant interval change. 2010 [employer]- All Rights Reserved Head CT 07/27/17 00:00 IMPRESSION: Early subacute infarct in the right cerebellar vermis, nonhemorrhagic. Stable left cerebellar hemisphere lacunar infarct and spotty bifrontal and biparietal chronic white matter disease. EVIDENCE OF ACUTE STROKE: NO. Assessment & Plan - Diagnosis (1) Stroke Qualifiers: CVA mechanism: unspecified Qualified Code(s): I63.9 - Cerebral infarction, unspecified Is this a current diagnosis for this admission?: Yes Plan: Patient clinically has had a CVA. However he has a pacemaker and cannot have MRI. He had carotid Dopplers done last month and we will not repeat those. He already is on aspirin and Plavix and we will continue with those. Will start him with physical therapy and he probably will need rehab with placement. (2) Abnormal thyroid blood test Is this a current diagnosis for this admission?: Yes Plan: Has been started on Synthroid (3) CHF (congestive heart failure) Qualifiers: Congestive heart failure type: unspecified Congestive heart failure chronicity: chronic Qualified Code(s): I50.9 - Heart failure, unspecified Is this a current diagnosis for this admission?: Yes Plan: Patient is euvolemic today. (4) Diabetes Qualifiers: Diabetes mellitus type: type 1 Diabetes mellitus complication status: without complication Qualified Code(s): E10.9 - Type 1 diabetes mellitus without complications Is this a current diagnosis for this admission?: Yes Plan: Continue with sliding scale insulin. - Time Time Spent with patient: 25-34 minutes - Inpatient Certification Medical Necessity: Need Close Monitoring Due to Risk of Patient Decompensation
[2017-07-28] MEDS: ATORVASTATIN CALCIUM 40 MG TABLET PO SCH (21:47)
[2017-07-29] MEDS: TRAMADOL HCL 50 MG TABLET PO PRN (00:14)
[2017-07-29] MEDS: HEPARIN SOD (PORCINE) 5,000 UNIT/ML 1 ML SYRINGE SUBCUT SCH ×3 (05:10→21:34)
[2017-07-29] MEDS: NORMAL SALINE 1000 ML 1,000 ML IV PRN (05:16)
[2017-07-29 06:00] LABS: ABSOLUTE EOSINOPHILS # (AUTO) 0.1 10^3/uL (0.0-0.6); ABSOLUTE LYMPHOCYTES (AUTO) 1.3 10^3/uL (0.5-4.7); ABSOLUTE NEUT (AUTO) 4.1 10^3/uL (1.7-8.2); BASOPHILS % (AUTO) 0.7 % (0-2); EOSINOPHILS % (AUTO) 1.5 % (0-6); HEMATOCRIT 40.5 % (37.9-51.0); HEMOGLOBIN 13.4 g/dL (13.5-17.0); LYMPHOCYTES % (AUTO) 19.2 % (13-45); MEAN CORPUSCULAR HEMOGLOBIN 29.3 pg (27.0-33.4); MEAN CORPUSCULAR HGB CONC 33.1 g/dL (32.0-36.0); MEAN CORPUSCULAR VOLUME 88 fl (80-97); MONOCYTES % (AUTO) 15.6 % (3-13); PLATELET COUNT 147 10^3/uL (150-450); RED BLOOD COUNT 4.58 10^6/uL (4.35-5.55); RED CELL DISTRIBUTION WIDTH 16.6 % (11.5-14.0); TOTAL CELLS COUNTED % (AUTO) 100 %; WHITE BLOOD COUNT 6.6 10^3/uL (4.0-10.5)
[2017-07-29 06:13] LABS: ANION GAP 16 (5-19); BLOOD UREA NITROGEN 39 mg/dL (7-20); CALCIUM 9.4 mg/dL (8.4-10.2); CARBON DIOXIDE 18 mmol/L (22-30); CHLORIDE 107 mmol/L (98-107); GLUCOSE 119 mg/dL (75-110); POTASSIUM 4.5 mmol/L (3.6-5.0); SODIUM 140.8 mmol/L (137-145)
[2017-07-29] MEDS: AMIODARONE HCL 200 MG TABLET PO SCH ×2 (10:32→21:34)
[2017-07-29] MEDS: METOPROLOL SUCCINATE 50 MG TAB.SR.24H PO SCH (10:32)
[2017-07-29] MEDS: ONDANSETRON HCL INJ/PF 4 MG/2 ML SDV IV PRN ×2 (10:32→14:24)
[2017-07-29] MEDS: ASPIRIN 325 MG TABLET, ENT COATED PO SCH (10:32)
--- NOTE | 2017-07-29 13:50 | PDOC PROGRESS REPORT ---
Subjective Progress Note for:: 07/29/17 Subjective:: Patient still complains of weakness but it has improved by his report. Reason For Visit: ACUTE CVA WITH VESTIBULAR SYMPTOMS Physical Exam Vital Signs: Temp Pulse Resp BP Pulse Ox 97.6 F 62 16 119/81 100 07/29/17 07:50 07/29/17 08:00 07/29/17 08:00 07/29/17 08:00 07/29/17 08:00 Intake & Output 07/28/17 07/29/17 07/30/17 06:59 06:59 06:59 Intake Total 989 2877 Output Total 1200 825 Balance -211 2051 Weight 122.4 kg 123.6 kg General appearance: PRESENT: no acute distress Eye exam: PRESENT: conjunctiva pink. ABSENT: scleral icterus Ear exam: PRESENT: normal external ear exam Neck exam: ABSENT: JVD Respiratory exam: PRESENT: clear to auscultation alexys. ABSENT: rales, rhonchi, wheezes Cardiovascular exam: PRESENT: RRR. ABSENT: diastolic murmur, rubs, systolic murmur GI/Abdominal exam: PRESENT: normal bowel sounds, soft. ABSENT: distended, guarding, mass, organolmegaly, rebound, tenderness Extremities exam: ABSENT: calf tenderness, clubbing, pedal edema Neurological exam: PRESENT: alert, awake, oriented to person, oriented to place , oriented to time, oriented to situation, CN II-XII grossly intact, motor sensory deficit - Left lower extremity weakness. Psychiatric exam: PRESENT: appropriate affect Skin exam: PRESENT: dry, intact, warm. ABSENT: cyanosis, rash Results Laboratory Results: 07/29/17 05:38 07/29/17 05:38 07/29/17 07/29/17 05:38 05:38 WBC 6.6 RBC 4.58 Hgb 13.4 L Hct 40.5 MCV 88 MCH 29.3 MCHC 33.1 RDW 16.6 H Plt Count 147 L Seg Neutrophils % 63.0 Lymphocytes % 19.2 Monocytes % 15.6 H Eosinophils % 1.5 Basophils % 0.7 Absolute Neutrophils 4.1 Absolute Lymphocytes 1.3 Absolute Monocytes 1.0 Absolute Eosinophils 0.1 Absolute Basophils 0.0 Sodium 140.8 Potassium 4.5 Chloride 107 Carbon Dioxide 18 L Anion Gap 16 BUN 39 H Creatinine 2.10 H Est GFR ( Amer) 39 L Est GFR (Non-Af Amer) 32 L Glucose 119 H Calcium 9.4 07/27/17 07/27/17 07/27/17 05:06 05:06 11:51 Creatine Kinase 64 61 CK-MB (CK-2) 0.65 Troponin I 0.013 07/27/17 07/27/17 07/27/17 11:51 19:00 19:00 Creatine Kinase 67 CK-MB (CK-2) 0.79 0.66 Troponin I 0.012 0.013 Impressions: Chest X-Ray 07/26/17 22:27 IMPRESSION: No significant interval change. 2010 [employer]- All Rights Reserved Head CT 07/27/17 00:00 IMPRESSION: Early subacute infarct in the right cerebellar vermis, nonhemorrhagic. Stable left cerebellar hemisphere lacunar infarct and spotty bifrontal and biparietal chronic white matter disease. EVIDENCE OF ACUTE STROKE: NO. Assessment & Plan - Diagnosis (1) Stroke Qualifiers: CVA mechanism: unspecified Qualified Code(s): I63.9 - Cerebral infarction, unspecified Is this a current diagnosis for this admission?: Yes Plan: Patient clinically has had a CVA. However he has a pacemaker and cannot have MRI. He had carotid Dopplers done last month and we will not repeat those. He already is on aspirin and Plavix and we will continue with those. Will continue with physical therapy and he will need rehab placement. (2) Abnormal thyroid blood test Is this a current diagnosis for this admission?: Yes Plan: Has been started on Synthroid (3) CHF (congestive heart failure) Qualifiers: Congestive heart failure type: unspecified Congestive heart failure chronicity: chronic Qualified Code(s): I50.9 - Heart failure, unspecified Is this a current diagnosis for this admission?: Yes Plan: Patient is euvolemic today. (4) Diabetes Qualifiers: Diabetes mellitus type: type 1 Diabetes mellitus complication status: without complication Qualified Code(s): E10.9 - Type 1 diabetes mellitus without complications Is this a current diagnosis for this admission?: Yes Plan: Continue with sliding scale insulin. - Time Time Spent with patient: 25-34 minutes - Inpatient Certification Medical Necessity: Need Close Monitoring Due to Risk of Patient Decompensation - Plan Summary Plan Summary: We will plan on discharge when a rehab bed is available.
[2017-07-29] MEDS: ATORVASTATIN CALCIUM 40 MG TABLET PO SCH (21:34)
[2017-07-29] MEDS: INSULIN LISPRO 100 UNIT/ML 3 ML VIAL SUBCUT PRN (21:35)
--- NOTE | 2017-07-29 22:31 | Physician Advisory Note ---
Physician Advisor ProgressNote .: Pursuant to the plan for [facility], I have reviewed the medical record for this patient. Physician Advisor Statement: Please consider documenting, if you agree: 1.. "Acute/Subacute Rt-sided thrombotic [or embolic, or other etiology] ___ artery* CVA with cerebellar infarction, with vertigo/ataxia, [resolved or improved or persistent], in Rt-hand dominant pt" *sup cerebellar, or ant/post inf cerebellar artery? 2. "chronic systolic CHF with EF<20%" - & severe pulmonary HTN 3. Is there a possible dx to mention in reference to abnormal thyroid test? Thanks! CK
[2017-07-30] MEDS: HEPARIN SOD (PORCINE) 5,000 UNIT/ML 1 ML SYRINGE SUBCUT SCH ×3 (05:05→22:16)
[2017-07-30] MEDS: NORMAL SALINE 1000 ML 1,000 ML IV PRN (05:09)
[2017-07-30 06:38] LABS: ABSOLUTE BASOPHILS # (AUTO) 0.1 10^3/uL (0.0-0.2); ABSOLUTE EOSINOPHILS # (AUTO) 0.1 10^3/uL (0.0-0.6); ABSOLUTE LYMPHOCYTES (AUTO) 1.1 10^3/uL (0.5-4.7); ABSOLUTE MONOCYTES (AUTO) 1.1 10^3/uL (0.1-1.4); ABSOLUTE NEUT (AUTO) 4.3 10^3/uL (1.7-8.2); BASOPHILS % (AUTO) 0.8 % (0-2); EOSINOPHILS % (AUTO) 1.3 % (0-6); HEMATOCRIT 39.4 % (37.9-51.0); MEAN CORPUSCULAR HEMOGLOBIN 29.2 pg (27.0-33.4); MEAN CORPUSCULAR HGB CONC 32.9 g/dL (32.0-36.0); MEAN CORPUSCULAR VOLUME 89 fl (80-97); MONOCYTES % (AUTO) 16.1 % (3-13); PLATELET COUNT 140 10^3/uL (150-450); RED BLOOD COUNT 4.44 10^6/uL (4.35-5.55); RED CELL DISTRIBUTION WIDTH 16.6 % (11.5-14.0); SEGMENTED NEUTROPHILS % (AUTO) 65.8 % (42-78); TOTAL CELLS COUNTED % (AUTO) 100 %; WHITE BLOOD COUNT 6.6 10^3/uL (4.0-10.5)
[2017-07-30 06:50] LABS: ANION GAP 15 (5-19); BLOOD UREA NITROGEN 32 mg/dL (7-20); CALCIUM 8.9 mg/dL (8.4-10.2); CARBON DIOXIDE 18 mmol/L (22-30); CHLORIDE 105 mmol/L (98-107); GLUCOSE 106 mg/dL (75-110); POTASSIUM 4.8 mmol/L (3.6-5.0); SODIUM 137.8 mmol/L (137-145)
[2017-07-30] MEDS: ASPIRIN 325 MG TABLET, ENT COATED PO SCH (10:21)
[2017-07-30] MEDS: AMIODARONE HCL 200 MG TABLET PO SCH ×2 (10:21→22:16)
[2017-07-30] MEDS: METOPROLOL SUCCINATE 50 MG TAB.SR.24H PO SCH (10:21)
--- NOTE | 2017-07-30 11:49 | PDOC PROGRESS REPORT ---
Subjective Progress Note for:: 07/30/17 Subjective:: Patient still complains of weakness but it has improved by his report. Reason For Visit: ACUTE CVA WITH VESTIBULAR SYMPTOMS Physical Exam Vital Signs: Temp Pulse Resp BP Pulse Ox 97.7 F 60 16 115/80 98 07/30/17 08:05 07/30/17 08:05 07/30/17 08:05 07/30/17 08:05 07/30/17 08:05 Intake & Output 07/29/17 07/30/17 07/31/17 06:59 06:59 06:59 Intake Total 2877 1803 Output Total 825 1050 Balance 2052 753 Weight 123.6 kg 123.2 kg General appearance: PRESENT: no acute distress Eye exam: PRESENT: conjunctiva pink. ABSENT: scleral icterus Mouth exam: PRESENT: moist, tongue midline Neck exam: ABSENT: JVD Respiratory exam: PRESENT: clear to auscultation alexys. ABSENT: rales, rhonchi, wheezes Cardiovascular exam: PRESENT: RRR. ABSENT: diastolic murmur, rubs, systolic murmur GI/Abdominal exam: PRESENT: normal bowel sounds, soft. ABSENT: distended, guarding, mass, organolmegaly, rebound, tenderness Extremities exam: ABSENT: calf tenderness, clubbing, pedal edema Neurological exam: PRESENT: alert, awake, oriented to person, oriented to place , oriented to time, oriented to situation, CN II-XII grossly intact, motor sensory deficit - Left leg weakness Psychiatric exam: PRESENT: appropriate affect Skin exam: PRESENT: dry, intact, warm. ABSENT: cyanosis, rash Results Laboratory Results: 07/30/17 06:16 07/30/17 06:16 07/30/17 07/30/17 06:16 06:16 WBC 6.6 RBC 4.44 Hgb 13.0 L Hct 39.4 MCV 89 MCH 29.2 MCHC 32.9 RDW 16.6 H Plt Count 140 L Seg Neutrophils % 65.8 Lymphocytes % 16.0 Monocytes % 16.1 H Eosinophils % 1.3 Basophils % 0.8 Absolute Neutrophils 4.3 Absolute Lymphocytes 1.1 Absolute Monocytes 1.1 Absolute Eosinophils 0.1 Absolute Basophils 0.1 Sodium 137.8 Potassium 4.8 Chloride 105 Carbon Dioxide 18 L Anion Gap 15 BUN 32 H Creatinine 1.94 H Est GFR ( Amer) 43 L Est GFR (Non-Af Amer) 35 L Glucose 106 Calcium 8.9 07/27/17 07/27/17 07/27/17 05:06 05:06 11:51 Creatine Kinase 64 61 CK-MB (CK-2) 0.65 Troponin I 0.013 07/27/17 07/27/17 07/27/17 11:51 19:00 19:00 Creatine Kinase 67 CK-MB (CK-2) 0.79 0.66 Troponin I 0.012 0.013 Impressions: Chest X-Ray 07/26/17 22:27 IMPRESSION: No significant interval change. 2010 [employer]- All Rights Reserved Head CT 07/27/17 00:00 IMPRESSION: Early subacute infarct in the right cerebellar vermis, nonhemorrhagic. Stable left cerebellar hemisphere lacunar infarct and spotty bifrontal and biparietal chronic white matter disease. EVIDENCE OF ACUTE STROKE: NO. Assessment & Plan - Diagnosis (1) Stroke Qualifiers: CVA mechanism: unspecified Qualified Code(s): I63.9 - Cerebral infarction, unspecified Is this a current diagnosis for this admission?: Yes Plan: Patient clinically has had a CVA. 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 However he has a pacemaker and cannot have MRI. He had carotid Dopplers done last month and we will not repeat those. He already is on aspirin and Plavix and we will continue with those. Will continue with physical therapy and he will need rehab placement. (2) Abnormal thyroid blood test Is this a current diagnosis for this admission?: Yes Plan: Has been started on Synthroid for hypothyroidism (3) CHF (congestive heart failure) Qualifiers: Congestive heart failure type: unspecified Congestive heart failure chronicity: chronic Qualified Code(s): I50.9 - Heart failure, unspecified Is this a current diagnosis for this admission?: Yes Plan: Patient is euvolemic today. Has chronic systolic congestive heart failure pulmonary hypertension (4) Diabetes Qualifiers: Diabetes mellitus type: type 1 Diabetes mellitus complication status: without complication Qualified Code(s): E10.9 - Type 1 diabetes mellitus without complications Is this a current diagnosis for this admission?: Yes Plan: Continue with sliding scale insulin. (5) Chronic renal failure Qualifiers: Chronic kidney disease stage: stage 3 (moderate) Qualified Code(s): N18.3 - Chronic kidney disease, stage 3 (moderate) Is this a current diagnosis for this admission?: Yes - Time Time Spent with patient: 25-34 minutes - Plan Summary Plan Summary: Awaiting on placement in rehab.
[2017-07-30] MEDS: ATORVASTATIN CALCIUM 40 MG TABLET PO SCH (22:16)
[2017-07-30] MEDS: TRAMADOL HCL 50 MG TABLET PO PRN (22:22)
[2017-07-31] MEDS ORDERED: LORAZEPAM INJ 2 MG/1 ML VIAL ONE (03:41)
[2017-07-31] MEDS ORDERED: LORAZEPAM INJ 2 MG/1 ML VIAL IV ONE (03:45)
[2017-07-31] MEDS: HEPARIN SOD (PORCINE) 5,000 UNIT/ML 1 ML SYRINGE SUBCUT SCH ×3 (05:06→21:57)
[2017-07-31 07:21] LABS: ANION GAP 14 (5-19); BLOOD UREA NITROGEN 32 mg/dL (7-20); CALCIUM 9.2 mg/dL (8.4-10.2); CARBON DIOXIDE 17 mmol/L (22-30); CHLORIDE 106 mmol/L (98-107); GLUCOSE 101 mg/dL (75-110); POTASSIUM 4.9 mmol/L (3.6-5.0); SODIUM 137.4 mmol/L (137-145)
[2017-07-31] MEDS: METOPROLOL SUCCINATE 50 MG TAB.SR.24H PO SCH (09:38)
[2017-07-31] MEDS: AMIODARONE HCL 200 MG TABLET PO SCH ×2 (09:39→21:55)
[2017-07-31] MEDS: ASPIRIN 325 MG TABLET, ENT COATED PO SCH (09:39)
--- NOTE | 2017-07-31 10:25 | PDOC PROGRESS REPORT ---
Subjective Progress Note for:: 07/31/17 Subjective:: complains of shortness of breath. Reason For Visit: ACUTE CVA WITH VESTIBULAR SYMPTOMS Physical Exam Vital Signs: Temp Pulse Resp BP Pulse Ox 97.4 F 60 20 122/83 100 07/31/17 07:27 07/31/17 08:00 07/31/17 08:00 07/31/17 08:00 07/31/17 08:00 Intake & Output 07/30/17 07/31/17 08/01/17 06:59 06:59 06:59 Intake Total 1803 1650 Output Total 1050 1275 Balance 753 375 Weight 123.2 kg 122.9 kg General appearance: PRESENT: no acute distress Eye exam: PRESENT: conjunctiva pink. ABSENT: scleral icterus Mouth exam: PRESENT: moist, tongue midline Neck exam: ABSENT: JVD Respiratory exam: PRESENT: clear to auscultation alexys. ABSENT: rales, rhonchi, wheezes Cardiovascular exam: PRESENT: RRR. ABSENT: diastolic murmur, rubs, systolic murmur GI/Abdominal exam: PRESENT: normal bowel sounds, soft. ABSENT: distended, guarding, mass, organolmegaly, rebound, tenderness Extremities exam: ABSENT: calf tenderness, clubbing, pedal edema Neurological exam: PRESENT: alert, awake, oriented to person, oriented to place , oriented to time, oriented to situation, CN II-XII grossly intact. ABSENT: motor sensory deficit Psychiatric exam: PRESENT: anxious Skin exam: PRESENT: dry, intact, warm. ABSENT: cyanosis, rash Results Laboratory Results: 07/30/17 06:16 07/31/17 06:15 07/31/17 06:15 Sodium 137.4 Potassium 4.9 Chloride 106 Carbon Dioxide 17 L Anion Gap 14 BUN 32 H Creatinine 2.03 H Est GFR ( Amer) 40 L Est GFR (Non-Af Amer) 33 L Glucose 101 Calcium 9.2 07/27/17 07/27/17 07/27/17 05:06 05:06 11:51 Creatine Kinase 64 61 CK-MB (CK-2) 0.65 Troponin I 0.013 07/27/17 07/27/17 07/27/17 11:51 19:00 19:00 Creatine Kinase 67 CK-MB (CK-2) 0.79 0.66 Troponin I 0.012 0.013 Impressions: Chest X-Ray 07/26/17 22:27 IMPRESSION: No significant interval change. 2010 [employer]- All Rights Reserved Head CT 07/27/17 00:00 IMPRESSION: Early subacute infarct in the right cerebellar vermis, nonhemorrhagic. Stable left cerebellar hemisphere lacunar infarct and spotty bifrontal and biparietal chronic white matter disease. EVIDENCE OF ACUTE STROKE: NO. Assessment & Plan - Diagnosis (1) Stroke Qualifiers: CVA mechanism: unspecified Qualified Code(s): I63.9 - Cerebral infarction, unspecified Is this a current diagnosis for this admission?: Yes Plan: Patient clinically has had a CVA. 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 However he has a pacemaker and cannot have MRI. He had carotid Dopplers done last month and we will not repeat those. He already is on aspirin and Plavix and we will continue with those. Will continue with physical therapy and he will need rehab placement. (2) Abnormal thyroid blood test Is this a current diagnosis for this admission?: Yes Plan: Has been started on Synthroid for hypothyroidism (3) CHF (congestive heart failure) Qualifiers: Congestive heart failure type: unspecified Congestive heart failure chronicity: chronic Qualified Code(s): I50.9 - Heart failure, unspecified Is this a current diagnosis for this admission?: Yes Plan: Patient is euvolemic today. Has chronic systolic congestive heart failure with pulmonary hypertension (4) Diabetes Qualifiers: Diabetes mellitus type: type 1 Diabetes mellitus complication status: without complication Qualified Code(s): E10.9 - Type 1 diabetes mellitus without complications Is this a current diagnosis for this admission?: Yes Plan: Continue with sliding scale insulin. (5) Chronic renal failure Qualifiers: Chronic kidney disease stage: stage 3 (moderate) Qualified Code(s): N18.3 - Chronic kidney disease, stage 3 (moderate) Is this a current diagnosis for this admission?: Yes (6) Dyspnea Is this a current diagnosis for this admission?: Yes Plan: Patient has no evidence for volume overload. We will give nebulizers as needed. - Time Time Spent with patient: 25-34 minutes - Inpatient Certification Medical Necessity: Need Close Monitoring Due to Risk of Patient Decompensation - Plan Summary Plan Summary: Awaiting on rehab placement
[2017-07-31] MEDS: IPRATROPIUM/ALBUTEROL 0.5-2.5 MG/3 ML AMPUL NEB SCH ×2 (15:53→19:36)
[2017-07-31] MEDS: ATORVASTATIN CALCIUM 40 MG TABLET PO SCH (21:56)
[2017-08-01] MEDS: IPRATROPIUM/ALBUTEROL 0.5-2.5 MG/3 ML AMPUL NEB SCH ×4 (02:11→19:31)
[2017-08-01] MEDS: HEPARIN SOD (PORCINE) 5,000 UNIT/ML 1 ML SYRINGE SUBCUT SCH ×3 (05:28→21:45)
[2017-08-01 06:25] LABS: ANION GAP 12 (5-19); BLOOD UREA NITROGEN 34 mg/dL (7-20); CALCIUM 9.1 mg/dL (8.4-10.2); CARBON DIOXIDE 20 mmol/L (22-30); CHLORIDE 105 mmol/L (98-107); GLUCOSE 103 mg/dL (75-110); POTASSIUM 4.7 mmol/L (3.6-5.0)
[2017-08-01] MEDS: METOPROLOL SUCCINATE 50 MG TAB.SR.24H PO SCH (11:16)
[2017-08-01] MEDS: AMIODARONE HCL 200 MG TABLET PO SCH ×2 (11:17→21:45)
[2017-08-01] MEDS: ASPIRIN 325 MG TABLET, ENT COATED PO SCH (11:17)
--- NOTE | 2017-08-01 12:34 | PDOC PROGRESS REPORT ---
Subjective Progress Note for:: 08/01/17 Subjective:: Denies any complaints. Reason For Visit: ACUTE CVA WITH VESTIBULAR SYMPTOMS Physical Exam Vital Signs: Temp Pulse Resp BP Pulse Ox 97.5 F 55 L 16 123/94 H 95 08/01/17 12:00 08/01/17 12:00 08/01/17 12:00 08/01/17 12:00 08/01/17 12:00 Intake & Output 07/31/17 08/01/17 08/02/17 06:59 06:59 06:59 Intake Total 1650 1100 237 Output Total 1275 925 300 Balance 375 175 -63 Weight 122.9 kg 124.2 kg General appearance: PRESENT: no acute distress Eye exam: PRESENT: conjunctiva pink. ABSENT: scleral icterus Mouth exam: PRESENT: moist, tongue midline Neck exam: ABSENT: carotid bruit, JVD, lymphadenopathy, thyromegaly Respiratory exam: PRESENT: clear to auscultation alexys. ABSENT: rales, rhonchi, wheezes Cardiovascular exam: PRESENT: RRR. ABSENT: diastolic murmur, rubs, systolic murmur GI/Abdominal exam: PRESENT: normal bowel sounds, soft. ABSENT: distended, guarding, mass, organolmegaly, rebound, tenderness Extremities exam: ABSENT: calf tenderness, clubbing, pedal edema Neurological exam: PRESENT: alert, awake, oriented to person, oriented to place , oriented to time, oriented to situation, CN II-XII grossly intact, motor sensory deficit - Left leg is somewhat weak still Psychiatric exam: PRESENT: appropriate affect Skin exam: PRESENT: dry, intact, warm. ABSENT: cyanosis, rash Results Laboratory Results: 07/30/17 06:16 08/01/17 05:53 08/01/17 05:53 Sodium 137.0 Potassium 4.7 Chloride 105 Carbon Dioxide 20 L Anion Gap 12 BUN 34 H Creatinine 1.96 H Est GFR ( Amer) 42 L Est GFR (Non-Af Amer) 35 L Glucose 103 Calcium 9.1 07/27/17 07/27/17 07/27/17 05:06 05:06 11:51 Creatine Kinase 64 61 CK-MB (CK-2) 0.65 Troponin I 0.013 07/27/17 07/27/17 07/27/17 11:51 19:00 19:00 Creatine Kinase 67 CK-MB (CK-2) 0.79 0.66 Troponin I 0.012 0.013 Impressions: Chest X-Ray 07/26/17 22:27 IMPRESSION: No significant interval change. 2010 [employer]- All Rights Reserved Head CT 07/27/17 00:00 IMPRESSION: Early subacute infarct in the right cerebellar vermis, nonhemorrhagic. Stable left cerebellar hemisphere lacunar infarct and spotty bifrontal and biparietal chronic white matter disease. EVIDENCE OF ACUTE STROKE: NO. Assessment & Plan - Diagnosis (1) Stroke Qualifiers: CVA mechanism: unspecified Qualified Code(s): I63.9 - Cerebral infarction, unspecified Is this a current diagnosis for this admission?: Yes Plan: Patient clinically has had a CVA. 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 However he has a pacemaker and cannot have MRI. He had carotid Dopplers done last month and we will not repeat those. He already is on aspirin and Plavix and we will continue with those. Will continue with physical therapy and he will need rehab placement. (2) Abnormal thyroid blood test Is this a current diagnosis for this admission?: Yes Plan: Has been started on Synthroid for hypothyroidism (3) CHF (congestive heart failure) Qualifiers: Congestive heart failure type: unspecified Congestive heart failure chronicity: chronic Qualified Code(s): I50.9 - Heart failure, unspecified Is this a current diagnosis for this admission?: Yes Plan: Patient is euvolemic today. Has chronic systolic congestive heart failure with pulmonary hypertension (4) Diabetes Qualifiers: Diabetes mellitus type: type 1 Diabetes mellitus complication status: without complication Qualified Code(s): E10.9 - Type 1 diabetes mellitus without complications Is this a current diagnosis for this admission?: Yes Plan: Continue with sliding scale insulin. (5) Chronic renal failure Qualifiers: Chronic kidney disease stage: stage 3 (moderate) Qualified Code(s): N18.3 - Chronic kidney disease, stage 3 (moderate) Is this a current diagnosis for this admission?: Yes (6) Dyspnea Is this a current diagnosis for this admission?: Yes Plan: Patient has no evidence for volume overload. We will give nebulizers as needed. - Time Time Spent with patient: 15-24 minutes - Plan Summary Plan Summary: We will discharge to rehab when a bed becomes available.
[2017-08-01] MEDS: ATORVASTATIN CALCIUM 40 MG TABLET PO SCH (21:44)
[2017-08-02] MEDS: IPRATROPIUM/ALBUTEROL 0.5-2.5 MG/3 ML AMPUL NEB SCH ×3 (01:13→13:21)
[2017-08-02] MEDS: HEPARIN SOD (PORCINE) 5,000 UNIT/ML 1 ML SYRINGE SUBCUT SCH ×3 (05:12→23:06)
[2017-08-02 07:00] LABS: ANION GAP 12 (5-19); BLOOD UREA NITROGEN 31 mg/dL (7-20); CALCIUM 9.3 mg/dL (8.4-10.2); CARBON DIOXIDE 19 mmol/L (22-30); CHLORIDE 102 mmol/L (98-107); GLUCOSE 121 mg/dL (75-110); POTASSIUM 4.6 mmol/L (3.6-5.0); SODIUM 133.4 mmol/L (137-145)
[2017-08-02] MEDS: ASPIRIN 325 MG TABLET, ENT COATED PO SCH (09:23)
[2017-08-02] MEDS: AMIODARONE HCL 200 MG TABLET PO SCH ×2 (09:23→23:05)
[2017-08-02] MEDS: METOPROLOL SUCCINATE 50 MG TAB.SR.24H PO SCH (09:24)
--- NOTE | 2017-08-02 15:50 | PDOC PROGRESS REPORT ---
Subjective Progress Note for:: 08/02/17 Subjective:: 62-year-old male with history diabetes who presented with dizziness and difficulty ambulating and left leg weakness all suggestive of an acute CVA. Patient had a head CT which showed no obvious abnormalities however he could not have an MRI because of a pacemaker. Patient was admitted and monitored and he continued to have some left-sided weakness. Irwin that he most likely suffered a CVA. The patient is already on aspirin and Plavix and he has continued with those. The patient is awaiting rehab placement. He has applied for Medicaid but has not yet been approved. Reason For Visit: ACUTE CVA WITH VESTIBULAR SYMPTOMS Physical Exam Vital Signs: Temp Pulse Resp BP Pulse Ox 97.6 F 59 L 18 111/80 100 08/02/17 04:00 08/02/17 08:28 08/02/17 08:28 08/02/17 08:28 08/02/17 08:28 Intake & Output 08/01/17 08/02/17 08/03/17 06:59 06:59 06:59 Intake Total 1100 1845 Output Total 925 850 Balance 175 995 Weight 124.2 kg 123 kg General appearance: PRESENT: no acute distress Eye exam: PRESENT: conjunctiva pink. ABSENT: scleral icterus Mouth exam: PRESENT: moist, tongue midline Neck exam: ABSENT: JVD Respiratory exam: PRESENT: clear to auscultation alexys. ABSENT: rales, rhonchi, wheezes Cardiovascular exam: PRESENT: RRR. ABSENT: diastolic murmur, rubs, systolic murmur GI/Abdominal exam: PRESENT: normal bowel sounds, soft. ABSENT: distended, guarding, mass, organolmegaly, rebound, tenderness Extremities exam: ABSENT: calf tenderness, clubbing, pedal edema Neurological exam: PRESENT: alert, awake, oriented to person, oriented to place , oriented to time, oriented to situation, CN II-XII grossly intact, motor sensory deficit - Left leg weakness Psychiatric exam: PRESENT: appropriate affect Skin exam: PRESENT: dry, intact, warm. ABSENT: cyanosis, rash Results Laboratory Results: 07/30/17 06:16 08/02/17 05:55 08/02/17 05:55 Sodium 133.4 L Potassium 4.6 Chloride 102 Carbon Dioxide 19 L Anion Gap 12 BUN 31 H Creatinine 1.92 H Est GFR ( Amer) 43 L Est GFR (Non-Af Amer) 36 L Glucose 121 H Calcium 9.3 07/27/17 07/27/17 07/27/17 05:06 05:06 11:51 Creatine Kinase 64 61 CK-MB (CK-2) 0.65 Troponin I 0.013 07/27/17 07/27/17 07/27/17 11:51 19:00 19:00 Creatine Kinase 67 CK-MB (CK-2) 0.79 0.66 Troponin I 0.012 0.013 Impressions: Chest X-Ray 07/26/17 22:27 IMPRESSION: No significant interval change. 2010 [employer]- All Rights Reserved Head CT 07/27/17 00:00 IMPRESSION: Early subacute infarct in the right cerebellar vermis, nonhemorrhagic. Stable left cerebellar hemisphere lacunar infarct and spotty bifrontal and biparietal chronic white matter disease. EVIDENCE OF ACUTE STROKE: NO. Assessment & Plan - Diagnosis (1) Stroke Qualifiers: CVA mechanism: unspecified Qualified Code(s): I63.9 - Cerebral infarction, unspecified Is this a current diagnosis for this admission?: Yes Plan: Patient clinically has had a CVA. 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 However he has a pacemaker and cannot have MRI. He had carotid Dopplers done last month and we will not repeat those. He already is on aspirin and Plavix and we will continue with those. Will continue with physical therapy and he will need rehab placement. (2) Abnormal thyroid blood test Is this a current diagnosis for this admission?: Yes Plan: Has been started on Synthroid for hypothyroidism (3) CHF (congestive heart failure) Qualifiers: Congestive heart failure type: unspecified Congestive heart failure chronicity: chronic Qualified Code(s): I50.9 - Heart failure, unspecified Is this a current diagnosis for this admission?: Yes Plan: Patient is euvolemic today. Has chronic systolic congestive heart failure with pulmonary hypertension (4) Diabetes Qualifiers: Diabetes mellitus type: type 1 Diabetes mellitus complication status: without complication Qualified Code(s): E10.9 - Type 1 diabetes mellitus without complications Is this a current diagnosis for this admission?: Yes Plan: Continue with sliding scale insulin. (5) Chronic renal failure Qualifiers: Chronic kidney disease stage: stage 3 (moderate) Qualified Code(s): N18.3 - Chronic kidney disease, stage 3 (moderate) Is this a current diagnosis for this admission?: Yes (6) Dyspnea Is this a current diagnosis for this admission?: Yes Plan: Patient has no evidence for volume overload. We will give nebulizers as needed. - Time Time Spent with patient: 25-34 minutes - Plan Summary Plan Summary: Awaiting placement
[2017-08-02] MEDS ORDERED: IPRATROPIUM/ALBUTEROL 0.5-2.5 MG/3 ML AMPUL NEB ONE (16:03)
[2017-08-02] MEDS ORDERED: IPRATROPIUM/ALBUTEROL 0.5-2.5 MG/3 ML AMPUL NEB PRN (16:30)
[2017-08-02] MEDS: ATORVASTATIN CALCIUM 40 MG TABLET PO SCH (23:05)
[2017-08-03] MEDS: HEPARIN SOD (PORCINE) 5,000 UNIT/ML 1 ML SYRINGE SUBCUT SCH ×3 (05:37→23:16)
[2017-08-03 05:46] LABS: HEMATOCRIT 39.1 % (37.9-51.0); MEAN CORPUSCULAR HEMOGLOBIN 29.4 pg (27.0-33.4); MEAN CORPUSCULAR HGB CONC 33.2 g/dL (32.0-36.0); MEAN CORPUSCULAR VOLUME 89 fl (80-97); PLATELET COUNT 121 10^3/uL (150-450); RED BLOOD COUNT 4.41 10^6/uL (4.35-5.55); RED CELL DISTRIBUTION WIDTH 16.9 % (11.5-14.0); WHITE BLOOD COUNT 6.2 10^3/uL (4.0-10.5)
[2017-08-03 06:12] LABS: ANION GAP 12 (5-19); BLOOD UREA NITROGEN 31 mg/dL (7-20); CALCIUM 9.3 mg/dL (8.4-10.2); CARBON DIOXIDE 23 mmol/L (22-30); CHLORIDE 100 mmol/L (98-107); GLUCOSE 118 mg/dL (75-110); SODIUM 134.5 mmol/L (137-145)
[2017-08-03 06:44] LABS: ABSOLUTE LYMPHOCYTES# (MANUAL) 0.8 10^3/uL (0.5-4.7); ABSOLUTE MONOCYTES # (MANUAL) 0.9 10^3/uL (0.1-1.4); ABSOLUTE NEUTROPHILS# (MANUAL) 4.3 10^3/uL (1.7-8.2); BASOPHILS % (MANUAL) 0 % (0-2); EOSINOPHILS % (MANUAL) 2 % (0-6); LYMPHOCYTES % (MANUAL) 13 % (13-45); MONOCYTES % (MANUAL) 15 % (3-13); SEGMENTED NEUTROPHILS % (MAN) 70 % (42-78); TOTAL CELLS COUNTED 100
[2017-08-03 06:46] LABS: ANISOCYTOSIS 1+; HYPOCHROMASIA SLIGHT; OVALOCYTES SLIGHT; PLATELET COMMENT DECREASED; POIKILOCYTOSIS SLIGHT; POLYCHROMASIA SLIGHT; TOXIC GRANULATION SLIGHT; TOXIC VACUOLATION PRESENT
[2017-08-03] MEDS: ASPIRIN 325 MG TABLET, ENT COATED PO SCH (10:16)
[2017-08-03] MEDS: METOPROLOL SUCCINATE 50 MG TAB.SR.24H PO SCH (10:16)
[2017-08-03] MEDS: AMIODARONE HCL 200 MG TABLET PO SCH ×2 (10:16→23:15)
[2017-08-03] MEDS: ONDANSETRON HCL INJ/PF 4 MG/2 ML SDV IV PRN (16:26)
--- NOTE | 2017-08-03 19:03 | PDOC PROGRESS REPORT ---
Subjective Progress Note for:: 08/03/17 Subjective:: Doing well today. He has no complaints. Reason For Visit: ACUTE CVA WITH VESTIBULAR SYMPTOMS Physical Exam Vital Signs: Temp Pulse Resp BP Pulse Ox 98.4 F 60 18 103/78 98 08/03/17 16:09 08/03/17 16:09 08/03/17 16:09 08/03/17 16:09 08/03/17 16:09 Intake & Output 08/02/17 08/03/17 08/04/17 06:59 06:59 06:59 Intake Total 1845 818 760 Output Total 850 1900 900 Balance 995 -1082 -140 Weight 123 kg 125.1 kg General appearance: PRESENT: no acute distress Head exam: PRESENT: atraumatic, normocephalic Respiratory exam: PRESENT: clear to auscultation alexys. ABSENT: rales, rhonchi, wheezes Cardiovascular exam: PRESENT: RRR. ABSENT: diastolic murmur, rubs, systolic murmur Neurological exam: PRESENT: alert, awake, oriented to person, oriented to place , oriented to time, oriented to situation, CN II-XII grossly intact, other - Mild right nico-paresis. ABSENT: normal gait Psychiatric exam: PRESENT: appropriate affect, normal mood. ABSENT: homicidal ideation, suicidal ideation Skin exam: PRESENT: dry, intact, warm. ABSENT: cyanosis, rash Results Laboratory Results: 08/03/17 05:01 08/03/17 05:01 08/03/17 08/03/17 05:01 05:01 WBC 6.2 RBC 4.41 Hgb 13.0 L Hct 39.1 MCV 89 MCH 29.4 MCHC 33.2 RDW 16.9 H Plt Count 121 L Seg Neutrophils % Not Reportable Lymphocytes % Not Reportable Monocytes % Not Reportable Eosinophils % Not Reportable Basophils % Not Reportable Absolute Neutrophils Not Reportable Absolute Lymphocytes Not Reportable Absolute Monocytes Not Reportable Absolute Eosinophils Not Reportable Absolute Basophils Not Reportable Sodium 134.5 L Potassium 5.0 Chloride 100 Carbon Dioxide 23 Anion Gap 12 BUN 31 H Creatinine 1.83 H Est GFR ( Amer) 45 L Est GFR (Non-Af Amer) 38 L Glucose 118 H Calcium 9.3 07/27/17 07/27/17 07/27/17 05:06 05:06 11:51 Creatine Kinase 64 61 CK-MB (CK-2) 0.65 Troponin I 0.013 07/27/17 07/27/17 07/27/17 11:51 19:00 19:00 Creatine Kinase 67 CK-MB (CK-2) 0.79 0.66 Troponin I 0.012 0.013 Impressions: Chest X-Ray 07/26/17 22:27 IMPRESSION: No significant interval change. 2010 [employer]- All Rights Reserved Head CT 07/27/17 00:00 IMPRESSION: Early subacute infarct in the right cerebellar vermis, nonhemorrhagic. Stable left cerebellar hemisphere lacunar infarct and spotty bifrontal and biparietal chronic white matter disease. EVIDENCE OF ACUTE STROKE: NO. Assessment & Plan - Diagnosis (1) Stroke Qualifiers: CVA mechanism: unspecified Qualified Code(s): I63.9 - Cerebral infarction, unspecified Is this a current diagnosis for this admission?: Yes Plan: He is waiting for rehab. (2) Abnormal thyroid blood test Is this a current diagnosis for this admission?: Yes Plan: Hypothyroidism. He is on Synthroid (3) CHF (congestive heart failure) Qualifiers: Congestive heart failure type: systolic Congestive heart failure chronicity : chronic Qualified Code(s): I50.22 - Chronic systolic (congestive) heart failure Is this a current diagnosis for this admission?: Yes Plan: He is euvolemic. (4) Chronic renal failure Qualifiers: Chronic kidney disease stage: stage 3 (moderate) Qualified Code(s): N18.3 - Chronic kidney disease, stage 3 (moderate) Is this a current diagnosis for this admission?: Yes - Time Time Spent with patient: 25-34 minutes Medications reviewed and adjusted accordingly: Yes Anticipated discharge: Home
[2017-08-03] MEDS: ATORVASTATIN CALCIUM 40 MG TABLET PO SCH (23:15)
[2017-08-04] MEDS: HEPARIN SOD (PORCINE) 5,000 UNIT/ML 1 ML SYRINGE SUBCUT SCH ×3 (06:17→21:46)
[2017-08-04] MEDS: AMIODARONE HCL 200 MG TABLET PO SCH ×2 (10:37→21:44)
[2017-08-04] MEDS: METOPROLOL SUCCINATE 50 MG TAB.SR.24H PO SCH (10:37)
[2017-08-04] MEDS: ASPIRIN 325 MG TABLET, ENT COATED PO SCH (10:37)
--- NOTE | 2017-08-04 11:52 | PDOC PROGRESS REPORT ---
Subjective Progress Note for:: 08/04/17 Subjective:: He reports feeling mildly short of breath at rest and even with exertion. He did not mention this yesterday. Although, he felt this way,then. Reason For Visit: ACUTE CVA WITH VESTIBULAR SYMPTOMS Physical Exam Vital Signs: Temp Pulse Resp BP Pulse Ox 97.8 F 54 L 18 96/68 L 99 08/04/17 07:44 08/04/17 07:44 08/04/17 07:44 08/04/17 07:44 08/04/17 07:44 Intake & Output 08/03/17 08/04/17 08/05/17 06:59 06:59 06:59 Intake Total 818 1060 Output Total 1900 1500 Balance -1082 -440 Weight 125.1 kg 125.5 kg General appearance: PRESENT: no acute distress, obese Head exam: PRESENT: atraumatic, normocephalic Eye exam: PRESENT: EOMI, PERRLA Neck exam: ABSENT: carotid bruit, JVD, lymphadenopathy, thyromegaly Respiratory exam: PRESENT: clear to auscultation alexys. ABSENT: rales, rhonchi, wheezes Cardiovascular exam: PRESENT: RRR. ABSENT: diastolic murmur, rubs, systolic murmur GI/Abdominal exam: PRESENT: normal bowel sounds, soft. ABSENT: distended, guarding, mass, organolmegaly, rebound, tenderness Neurological exam: PRESENT: alert, awake, oriented to person, oriented to place , oriented to time, oriented to situation, CN II-XII grossly intact, other - Mild right-sided weakness. ABSENT: motor sensory deficit Psychiatric exam: PRESENT: appropriate affect, normal mood. ABSENT: homicidal ideation, suicidal ideation Skin exam: PRESENT: dry, intact, warm. ABSENT: cyanosis, rash Results Laboratory Results: 08/03/17 05:01 08/03/17 05:01 07/27/17 07/27/17 07/27/17 05:06 05:06 11:51 Creatine Kinase 64 61 CK-MB (CK-2) 0.65 Troponin I 0.013 07/27/17 07/27/17 07/27/17 11:51 19:00 19:00 Creatine Kinase 67 CK-MB (CK-2) 0.79 0.66 Troponin I 0.012 0.013 Impressions: Chest X-Ray 07/26/17 22:27 IMPRESSION: No significant interval change. 2010 [employer]- All Rights Reserved Head CT 07/27/17 00:00 IMPRESSION: Early subacute infarct in the right cerebellar vermis, nonhemorrhagic. Stable left cerebellar hemisphere lacunar infarct and spotty bifrontal and biparietal chronic white matter disease. EVIDENCE OF ACUTE STROKE: NO. Assessment & Plan - Diagnosis (1) Stroke Qualifiers: CVA mechanism: unspecified Qualified Code(s): I63.9 - Cerebral infarction, unspecified Is this a current diagnosis for this admission?: Yes Plan: He is waiting for rehab. (2) Abnormal thyroid blood test Is this a current diagnosis for this admission?: Yes Plan: Hypothyroidism. He is on Synthroid (3) CHF (congestive heart failure) Qualifiers: Congestive heart failure type: systolic Congestive heart failure chronicity : chronic Qualified Code(s): I50.22 - Chronic systolic (congestive) heart failure Is this a current diagnosis for this admission?: Yes Plan: He is euvolemic. Because of his mild shortness of breath, I will start him on a diuretic. According to his most recent echocardiogram, his EF is considerably low. He needs to be on an NATALYA inhibitor or ARB, but his renal function is poor. I will decrease the Toprol because his blood pressure is low. This will allow me an opportunity to start furosemide and Aldactone. (4) Chronic renal failure Qualifiers: Chronic kidney disease stage: stage 3 (moderate) Qualified Code(s): N18.3 - Chronic kidney disease, stage 3 (moderate) Is this a current diagnosis for this admission?: Yes Plan: stable. continue to monitor. - Time Time Spent with patient: 25-34 minutes Medications reviewed and adjusted accordingly: Yes Anticipated discharge: SNF - Inpatient Certification Medical Necessity: Failure to Improve With Outpatient Therapy, Significant Comorbidiites Make Outpatient Treatment Too Risky
[2017-08-04] MEDS ORDERED: FUROSEMIDE INJ/PF 20 MG/2 ML SDV IV ONE (11:54)
[2017-08-04] MEDS: SPIRONOLACTONE 25 MG TABLET PO SCH (13:30)
[2017-08-04] MEDS: ATORVASTATIN CALCIUM 40 MG TABLET PO SCH (21:44)
[2017-08-05] MEDS: HEPARIN SOD (PORCINE) 5,000 UNIT/ML 1 ML SYRINGE SUBCUT SCH ×3 (05:11→21:34)
[2017-08-05 06:44] LABS: ANION GAP 15 (5-19); BLOOD UREA NITROGEN 36 mg/dL (7-20); CALCIUM 9.6 mg/dL (8.4-10.2); CARBON DIOXIDE 19 mmol/L (22-30); CHLORIDE 99 mmol/L (98-107); GLUCOSE 112 mg/dL (75-110); POTASSIUM 4.4 mmol/L (3.6-5.0); SODIUM 132.5 mmol/L (137-145)
[2017-08-05] MEDS: METOPROLOL SUCCINATE 50 MG TAB.SR.24H PO SCH (10:59)
[2017-08-05] MEDS: ASPIRIN 325 MG TABLET, ENT COATED PO SCH (11:00)
[2017-08-05] MEDS: FUROSEMIDE 40 MG TABLET PO SCH (11:00)
[2017-08-05] MEDS: AMIODARONE HCL 200 MG TABLET PO SCH ×2 (11:01→21:34)
[2017-08-05] MEDS: INSULIN LISPRO 100 UNIT/ML 3 ML VIAL SUBCUT PRN (12:35)
--- NOTE | 2017-08-05 13:01 | PDOC PROGRESS REPORT ---
Subjective Progress Note for:: 08/05/17 Subjective:: Feeling better today. Reason For Visit: ACUTE CVA WITH VESTIBULAR SYMPTOMS Physical Exam Vital Signs: Temp Pulse Resp BP Pulse Ox 98.8 F 60 17 112/74 100 08/05/17 08:27 08/05/17 10:00 08/05/17 08:27 08/05/17 08:27 08/05/17 08:27 Intake & Output 08/04/17 08/05/17 08/06/17 06:59 06:59 06:59 Intake Total 1060 1480 Output Total 1500 2024 Balance -440 -545 Weight 125.5 kg 125.5 kg Head exam: PRESENT: atraumatic, normocephalic Eye exam: PRESENT: EOMI, PERRLA Neck exam: ABSENT: carotid bruit, JVD, lymphadenopathy, thyromegaly Respiratory exam: PRESENT: clear to auscultation alexys. ABSENT: rales, rhonchi, wheezes Cardiovascular exam: PRESENT: RRR. ABSENT: diastolic murmur, rubs, systolic murmur Extremities exam: PRESENT: +2 edema Neurological exam: PRESENT: alert, awake, oriented to person, oriented to place , oriented to time, oriented to situation, CN II-XII grossly intact, other - mild right sided weakness. ABSENT: motor sensory deficit Skin exam: PRESENT: dry, intact, warm. ABSENT: cyanosis, rash Results Laboratory Results: 08/03/17 05:01 08/05/17 05:57 08/05/17 05:57 Sodium 132.5 L Potassium 4.4 Chloride 99 Carbon Dioxide 19 L Anion Gap 15 BUN 36 H Creatinine 1.83 H Est GFR ( Amer) 45 L Est GFR (Non-Af Amer) 38 L Glucose 112 H Calcium 9.6 07/27/17 07/27/17 07/27/17 05:06 05:06 11:51 Creatine Kinase 64 61 CK-MB (CK-2) 0.65 Troponin I 0.013 07/27/17 07/27/17 07/27/17 11:51 19:00 19:00 Creatine Kinase 67 CK-MB (CK-2) 0.79 0.66 Troponin I 0.012 0.013 Impressions: Chest X-Ray 07/26/17 22:27 IMPRESSION: No significant interval change. 2011 [employer]- All Rights Reserved Head CT 07/27/17 00:00 IMPRESSION: Early subacute infarct in the right cerebellar vermis, nonhemorrhagic. Stable left cerebellar hemisphere lacunar infarct and spotty bifrontal and biparietal chronic white matter disease. EVIDENCE OF ACUTE STROKE: NO. Assessment & Plan - Diagnosis (1) Stroke Qualifiers: CVA mechanism: unspecified Qualified Code(s): I63.9 - Cerebral infarction, unspecified Is this a current diagnosis for this admission?: Yes Plan: He is waiting for rehab. (2) Abnormal thyroid blood test Is this a current diagnosis for this admission?: Yes Plan: Hypothyroidism. He is on Synthroid (3) CHF (congestive heart failure) Qualifiers: Congestive heart failure type: systolic Congestive heart failure chronicity : chronic Qualified Code(s): I50.22 - Chronic systolic (congestive) heart failure Is this a current diagnosis for this admission?: Yes Plan: He is euvolemic. Because of his mild shortness of breath, I have started him on a diuretic. According to his most recent echocardiogram, his EF is considerably low. He needs to be on an NATALYA inhibitor or ARB, but his renal function is poor. He remains on Toprol XL, spironolactone, and furosemide. (4) Chronic renal failure Qualifiers: Chronic kidney disease stage: stage 3 (moderate) Qualified Code(s): N18.3 - Chronic kidney disease, stage 3 (moderate) Is this a current diagnosis for this admission?: Yes Plan: stable. continue to monitor. - Time Time Spent with patient: 15-24 minutes Medications reviewed and adjusted accordingly: Yes Anticipated discharge: SNF - Inpatient Certification Based on my medical assessment, after consideration of the patient's comorbidities, presenting symptoms, or acuity I expect that the services needed warrant INPATIENT care.: Yes I certify that my determination is in accordance with my understanding of Medicare's requirements for reasonable and necessary INPATIENT services [42 CFR 412.3e].: Yes Medical Necessity: Significant Comorbidiites Make Outpatient Treatment Too Risky
[2017-08-05] MEDS: SPIRONOLACTONE 25 MG TABLET PO SCH (13:39)
[2017-08-05] MEDS: ATORVASTATIN CALCIUM 40 MG TABLET PO SCH (21:34)
[2017-08-06] MEDS: HEPARIN SOD (PORCINE) 5,000 UNIT/ML 1 ML SYRINGE SUBCUT SCH ×3 (05:44→21:23)
[2017-08-06] MEDS: METOPROLOL SUCCINATE 50 MG TAB.SR.24H PO SCH (11:47)
[2017-08-06] MEDS: FUROSEMIDE 40 MG TABLET PO SCH (11:47)
[2017-08-06] MEDS: AMIODARONE HCL 200 MG TABLET PO SCH ×2 (11:47→21:19)
[2017-08-06] MEDS: ASPIRIN 325 MG TABLET, ENT COATED PO SCH (11:48)
[2017-08-06] MEDS ORDERED: FUROSEMIDE INJ/PF 20 MG/2 ML SDV IV ONE (13:00)
--- NOTE | 2017-08-06 13:19 | PROGRESS NOTE E ---
Progress Note NAME: KILEY DAWSON : 1955 AGE: 62Y DATE: 08/06/2017 ROOM: 335 SUBJECTIVE: The patient is currently lying in bed. He states he is a little short of breath today which is a little more than his usual. The patient has denied any nausea, vomiting, or diarrhea. No dizziness or chest pain. No fevers or chills. The patient denies any cough or sputum production. The patient has been afebrile. Blood pressures have been in a good range, and the patient does not voice any other concerns at this time. REVIEW OF SYSTEMS: Rest of the review of systems negative. MEDICATIONS: Have been reviewed. OBJECTIVE: GENERAL: The patient is a 62-year-old male who is awake, alert, and oriented to person, place, time, and situation. He is verbal, conversational, and does not appear to be distressed. VITAL SIGNS: Temperature is 97.4, pulse 60, respirations 17, blood pressure is 113/71, oxygen saturation is 98 on 1.5 L nasal cannula. SKIN: Warm and dry. No rash. He is not diaphoretic. HEENT: Pupils equal, round, reactive to light and accommodation. Conjunctivae are pink. There is no evidence of JVP. CARDIOVASCULAR: Heart is regular. There is no murmur or rub. CHEST: Clear with fine bilateral basal crackles, symmetrical, unlabored. ABDOMEN: Soft, nontender, nondistended. BACK: No CVA tenderness or sacral edema. EXTREMITIES: No clubbing cyanosis, edema. PSYCHIATRIC: Appropriate affect. Pleasant mood. DIAGNOSTICS: Lab values are as follows: Hematology obtained on 08/03/2017: WBCs are 6.2, hemoglobin is 13.0, hematocrit is 39.1, platelet count is 121,000. Chemistry obtained on 08/05/2017: Sodium is 132, potassium 4.4, chloride is 99, carbon dioxide 19, BUN 36, creatinine is 1.83, glucose 112, calcium is 9.6. IMPRESSION AND PLAN: 1. ACUTE ISCHEMIC CEREBROVASCULAR ACCIDENT. The patient has been maximized on aspirin therapy as well as statin. The patient participated in therapies and is currently awaiting rehab placement. Will follow. 2. HYPOTHYROIDISM. Will continue the levothyroxine. 3. CHRONIC SYSTOLIC CONGESTIVE HEART FAILURE. The patient does appear to be volume up slightly. Will give a dose of Lasix. Continue his beta hal and current dose of Lasix and follow. 4. CHRONIC RENAL FAILURE STAGE III. Will continue to monitor. The patient's creatinine appears to be at baseline. 5. DIABETES MELLITUS TYPE 2. The patient's A1c shows excellent control with just dietary management. Will discontinue Accu-Cheks for now and continue dietary restriction. DISPOSITION: The patient is a FULL CODE. Pending patient's symptomatology and diagnostic findings, the patient can go to rehab as soon as a bed is available. The patient can be downgraded to a medical bed. Time spent on this followup including assessment, plan, physical examination, patient education, and review of records is 25 minutes. DICTATING PHYSICIAN: TAB MALCOLM NP [id number] PHY#: [id number] ID: [id number] JOB#: [id number] ACCT: [id number] cc: >
[2017-08-06] MEDS: SPIRONOLACTONE 25 MG TABLET PO SCH (14:04)
[2017-08-06] MEDS: SUCRALFATE 1 GM TABLET PO SCH ×2 (18:12→21:19)
[2017-08-06] MEDS: ATORVASTATIN CALCIUM 40 MG TABLET PO SCH (21:19)
[2017-08-06] MEDS ORDERED: LOSARTAN POTASSIUM 50 MG TABLET PO SCH (22:00)
[2017-08-07] MEDS: HEPARIN SOD (PORCINE) 5,000 UNIT/ML 1 ML SYRINGE SUBCUT SCH ×3 (06:46→22:18)
[2017-08-07 07:56] LABS: HEMATOCRIT 37.3 % (37.9-51.0); HEMOGLOBIN 12.3 g/dL (13.5-17.0); MEAN CORPUSCULAR HEMOGLOBIN 29.4 pg (27.0-33.4); MEAN CORPUSCULAR HGB CONC 32.9 g/dL (32.0-36.0); MEAN CORPUSCULAR VOLUME 90 fl (80-97); PLATELET COUNT 120 10^3/uL (150-450); RED BLOOD COUNT 4.17 10^6/uL (4.35-5.55); RED CELL DISTRIBUTION WIDTH 16.7 % (11.5-14.0); WHITE BLOOD COUNT 6.7 10^3/uL (4.0-10.5)
[2017-08-07 08:09] LABS: ANION GAP 13 (5-19); BLOOD UREA NITROGEN 42 mg/dL (7-20); CALCIUM 9.2 mg/dL (8.4-10.2); CARBON DIOXIDE 26 mmol/L (22-30); CHLORIDE 95 mmol/L (98-107); GLUCOSE 117 mg/dL (75-110); MAGNESIUM 1.8 mg/dL (1.6-2.3); POTASSIUM 4.6 mmol/L (3.6-5.0); SODIUM 133.9 mmol/L (137-145)
[2017-08-07] MEDS: FUROSEMIDE 40 MG TABLET PO SCH (09:28)
[2017-08-07] MEDS: SUCRALFATE 1 GM TABLET PO SCH ×4 (09:28→21:55)
[2017-08-07] MEDS: METOPROLOL SUCCINATE 50 MG TAB.SR.24H PO SCH (09:29)
[2017-08-07] MEDS: ASPIRIN 325 MG TABLET, ENT COATED PO SCH (09:29)
[2017-08-07] MEDS: AMIODARONE HCL 200 MG TABLET PO SCH ×2 (09:29→21:55)
[2017-08-07] MEDS: PREDNISONE 1 MG TABLET PO SCH (09:30)
[2017-08-07] MEDS ORDERED: ASPIRIN 81 MG TABLET, ENT COATED PO SCH (10:00)
[2017-08-07] MEDS ORDERED: AMIODARONE HCL 200 MG TABLET PO SCH (10:00)
[2017-08-07] MEDS: SPIRONOLACTONE 25 MG TABLET PO SCH (13:19)
--- NOTE | 2017-08-07 16:34 | PROGRESS NOTE E ---
Progress Note NAME: KILEY DAWSON : 1955 AGE: 62Y DATE: 08/07/2017 ROOM: 335 SUBJECTIVE: The patient is lying in bed. He states he feels better today than he did yesterday. The patient denies any nausea, vomiting, diarrhea. No shortness of breath, dizziness, chest pain. No fevers, chills. Patient has been afebrile. Blood pressures have been a little on the low side, but MAPs have been appropriate, and the patient does not voice any other concerns at this time. REVIEW OF SYSTEMS: Rest of review of systems is negative. MEDICATIONS: Medications have been reviewed. OBJECTIVE: GENERAL: The patient is a 62-year-old -English male who is awake, alert and oriented to person, place, time and situation. He is verbal and conversational and does not appear to be in any acute distress. VITAL SIGNS FOLLOWS: Temperature is 97.9. Pulse 79. Respirations 20. Blood pressure is 98/68. Oxygen saturation is 96% on room air. DIAGNOSTICS: Hematology obtained on 08/07/2017: WBCs are 6.7; hemoglobin is 12.3; hematocrit is 37.3; platelet count is 120,000. Chemistry obtained on 08/07/2017: Sodium is 133, potassium 4.6, chloride is 95, carbon dioxide is 26. BUN 42, creatinine is 2.14, glucose 117. Calcium is 9.2. Magnesium is 1.8. IMPRESSION AND PLAN: 1. ACUTE ISCHEMIC CEREBROVASCULAR ACCIDENT. The patient has been maximized on aspirin therapy as well as statin. The patient has participated in therapies and is currently awaiting rehab placement. Will follow. 2. CHRONIC SYSTOLIC CONGESTIVE HEART FAILURE. The patient appears optivolemic at this point. Will continue his beta hal, current dose of Lasix, and follow. 3. HYPOTHYROIDISM. Continue levothyroxine. 4. CHRONIC KIDNEY DISEASE STAGE 3. Patient's creatinine is at baseline. 5. DIABETES MELLITUS TYPE 2. The patient has excellent glycemic control. Will continue dietary management. 6. HYPERTENSION. The patient's blood pressures have been a little on the low side. Will move the patient's ARB to bedtime and follow. DISPOSITION: The patient is a FULL CODE. Pending patient's symptomatology and diagnostic findings, the patient can go to rehab as soon as a bed is available and can be downgraded to a medical bed. TIME SPENT: Time spent on this followup including assessment, plan, physical examination, patient education, review of records 20 minutes. DICTATING PHYSICIAN: TAB MALCOLM NP [id number] PHY#: [id number] ID: [id number] JOB#: [id number] ACCT: [id number] cc: > MTDD
[2017-08-07] MEDS: LOSARTAN POTASSIUM 50 MG TABLET PO SCH (21:55)
[2017-08-07] MEDS: ATORVASTATIN CALCIUM 40 MG TABLET PO SCH (21:55)
[2017-08-08] MEDS: HEPARIN SOD (PORCINE) 5,000 UNIT/ML 1 ML SYRINGE SUBCUT SCH ×3 (05:39→21:57)
[2017-08-08] MEDS: SUCRALFATE 1 GM TABLET PO SCH ×4 (08:53→21:57)
[2017-08-08] MEDS: FUROSEMIDE 40 MG TABLET PO SCH (08:54)
[2017-08-08] MEDS: ASPIRIN 325 MG TABLET, ENT COATED PO SCH (10:29)
[2017-08-08] MEDS: AMIODARONE HCL 200 MG TABLET PO SCH ×2 (10:29→21:57)
[2017-08-08] MEDS: METOPROLOL SUCCINATE 50 MG TAB.SR.24H PO SCH (10:30)
[2017-08-08] MEDS: PREDNISONE 1 MG TABLET PO SCH (10:31)
[2017-08-08] MEDS: SPIRONOLACTONE 25 MG TABLET PO SCH (14:38)
--- NOTE | 2017-08-08 15:29 | PROGRESS NOTE E ---
Progress Note NAME: KILEY DAWSON : 1955 AGE: 62Y DATE: 08/08/2017 ROOM: 335 SUBJECTIVE: The patient is currently lying in bed. The patient states that he does have some shortness of breath but does feel that it is improved in comparison to yesterday. The patient has been diuresed and appears optivolemic at this point. The patient has had no reported episodes of nausea, vomiting, or diarrhea. The patient has been afebrile. His blood pressures have been on the low side but acceptable, and the patient does not voice any other concerns at this time. BRIEF HISTORY: The patient is a 62-year-old -[place] male with a past medical history of heart failure. The patient presented to the emergency department due to weakness and was found to have acute CVA. The patient has been treated for this as well as heart failure. However, the patient has had some difficulty with rehab placement and is currently awaiting placement, and the patient does not voice any specific concerns. REVIEW OF SYSTEMS: Rest of review of systems is negative. MEDICATIONS: Medications have been reviewed. OBJECTIVE: GENERAL: The patient is a 62-year-old -[place] male who is awake, alert. He is oriented to person, place, time and situation. He is verbal, conversational, just a little delayed. Does not appear to be in any acute distress. VITAL SIGNS FOLLOWS: Temperature is 97.3. Pulse 59. Respirations 16. Blood pressure is 105/69. Oxygen saturation 96% on room air. SKIN: Warm and dry. No rash. Not diaphoretic. HEENT: Pupils equal, round and reactive to light and accommodation. Conjunctivae are pink. NECK: No evidence of JVP. CARDIOVASCULAR SYSTEM: Heart is regular. There is no murmur or rub. CHEST: Diminished. Symmetrical. Unlabored. ABDOMEN: Soft, nontender, nondistended. BACK: No CVA tenderness or sacral edema. EXTREMITIES: No clubbing, cyanosis, edema. PSYCHIATRIC: Appropriate affect. Pleasant mood. DIAGNOSTICS: Lab values are as follows. Hematology obtained on 08/07/2017: WBCs are 6.7. Hemoglobin is 12.3. Hematocrit is 37.3. Platelet count is 150,000. Chemistry obtained on 08/07/2017: Sodium is 133, potassium 4.6. Chloride is 95. Carbon dioxide is 26. BUN 42. Creatinine is 2.14. Glucose 117. Calcium is 9.2. Magnesium is 1.8. IMPRESSION AND PLAN: 1. ACUTE ISCHEMIC CEREBROVASCULAR ACCIDENT. The patient was maximized on aspirin therapy as well as statin. The patient is participating in therapies and is currently awaiting rehab placement. Will follow. 2. CHRONIC SYSTOLIC CONGESTIVE HEART FAILURE. The patient appears optivolemic at this point. Continue beta hal, current dose of Lasix. Follow. 3. HYPOTHYROIDISM. Continue levothyroxine. 4. HYPERTENSION. The patient's blood pressures are actually on the low side due to his heart failure meds. Did move the patient's ARB to bedtime. 5. HYPOTHYROIDISM. Continue levothyroxine. 6. CHRONIC KIDNEY DISEASE STAGE 3. Creatinine is at baseline. 7. DIABETES MELLITUS TYPE 2. The patient had excellent glycemic control with dietary management. Therefore did discontinue his Accu-Cheks. DISPOSITION: The patient is a FULL CODE. Pending patient's symptomatology and diagnostic findings, the patient will go to rehab as soon as a bed is available. TIME SPENT: Time spent on this followup including assessment, plan, physical examination, patient education, review of records is 25 minutes. DICTATING PHYSICIAN: TAB MALCOLM NP [id number] PHY#: [id number] ID: [id number] JOB#: [id number] ACCT: [id number] cc: >
[2017-08-08] MEDS: ATORVASTATIN CALCIUM 40 MG TABLET PO SCH (21:57)
[2017-08-08] MEDS: LOSARTAN POTASSIUM 50 MG TABLET PO SCH (21:57)
[2017-08-09 07:27] LABS: HEMATOCRIT 39.3 % (37.9-51.0); HEMOGLOBIN 12.9 g/dL (13.5-17.0); MEAN CORPUSCULAR HGB CONC 32.7 g/dL (32.0-36.0); MEAN CORPUSCULAR VOLUME 89 fl (80-97); PLATELET COUNT 134 10^3/uL (150-450); RED BLOOD COUNT 4.44 10^6/uL (4.35-5.55); RED CELL DISTRIBUTION WIDTH 17.1 % (11.5-14.0); WHITE BLOOD COUNT 5.7 10^3/uL (4.0-10.5)
[2017-08-09] MEDS: FUROSEMIDE 40 MG TABLET PO SCH (07:42)
[2017-08-09] MEDS: HEPARIN SOD (PORCINE) 5,000 UNIT/ML 1 ML SYRINGE SUBCUT SCH ×2 (07:42→14:28)
[2017-08-09] MEDS: SUCRALFATE 1 GM TABLET PO SCH ×2 (07:42→10:36)
[2017-08-09 07:48] LABS: BLOOD UREA NITROGEN 52 mg/dL (7-20); CALCIUM 9.3 mg/dL (8.4-10.2); GLUCOSE 103 mg/dL (75-110); MAGNESIUM 2.1 mg/dL (1.6-2.3); POTASSIUM 4.6 mmol/L (3.6-5.0)
[2017-08-09 08:21] LABS: ANION GAP 15 (5-19); CARBON DIOXIDE 20 mmol/L (22-30); CHLORIDE 99 mmol/L (98-107); SODIUM 133.5 mmol/L (137-145)
[2017-08-09] MEDS: PREDNISONE 1 MG TABLET PO SCH (10:36)
[2017-08-09] MEDS: ASPIRIN 325 MG TABLET, ENT COATED PO SCH (10:36)
[2017-08-09] MEDS: AMIODARONE HCL 200 MG TABLET PO SCH (10:36)
[2017-08-09] MEDS: METOPROLOL SUCCINATE 50 MG TAB.SR.24H PO SCH (10:37)
[2017-08-09 11:35] VITALS: BP 96/75
--- NOTE | 2017-08-09 12:23 | PDOC TRANSFER SUMMARY ---
General - Admit/Disc Date/PCP Admission Date/Primary Care Provider: 07/27/17 04:02 [facility] Discharge Date: 08/09/17 - Discharge Diagnosis (1) CVA (cerebral vascular accident) Is this a current diagnosis for this admission?: Yes Summary: Continue aspirin and statin medication. He has residual right hemiparesis. He will be transitioned to subacute rehabilitation today in stable condition (2) CHF (congestive heart failure) Is this a current diagnosis for this admission?: Yes Summary: Chronic systolic congestive heart failure. Stable (3) Chronic renal failure Is this a current diagnosis for this admission?: Yes Summary: Stable (4) Diabetes Is this a current diagnosis for this admission?: Yes Summary: Stable (5) Hypertension Is this a current diagnosis for this admission?: Yes Summary: Stable (6) Hypothyroid Is this a current diagnosis for this admission?: Yes (7) Hyponatremia Is this a current diagnosis for this admission?: Yes Summary: Stable (8) Anemia Is this a current diagnosis for this admission?: Yes Summary: Anemia of chronic disease. Stable. - Additional Information Resuscitation Status: Full Code Discharge Diet: Cardiac Discharge Activity: Activity As Tolerated, Balance Activity w/Rest, Slowly Increase Activity, Supervised Activity Home Medications: Amiodarone HCl [Cordarone 200 mg Tablet] 400 mg PO DAILY 07/27/17 Furosemide [Lasix 40 mg Tablet] 40 mg PO QAM 07/27/17 Losartan Potassium [Cozaar 50 mg Tablet] 50 mg PO Q12 07/27/17 Metoprolol Succinate [Toprol Xl 50 mg Tab.sr] 200 mg PO DAILY 07/27/17 Prednisone [Deltasone 1 mg Tablet] 1 mg PO DAILY 07/27/17 Sucralfate [Carafate 1 gm Tablet] 1 gm PO ACHS 07/27/17 Acetaminophen [Tylenol 325 mg Tablet] 650 mg PO Q4HP PRN tablet 08/09/17 Aspirin [Ecotrin 325 mg EC Tablet] 325 mg PO DAILY tabec 08/09/17 Atorvastatin Calcium [Lipitor 40 mg Tablet] 40 mg PO QHS tablet 08/09/17 Docusate Sodium [Colace 100 mg Capsule] 100 mg PO BIDP PRN capsule 08/09/17 Spironolactone [Aldactone 25 mg Tablet] 25 mg PO DAILY@1400 tablet 08/09/17 History of Present Illness Admission Date/PCP: 07/27/17 04:02 [facility] History of Present Illness: KILEY DAWSON is a 62 year old male who is an exceptionally poor historian but I am able to elucidate from his past record and from discussing with him that he has history of diabetes mellitus, hypertension, congestive heart failure, thyroid dysfunction, and possibly atrial fibrillation who presents to the emergency department with complaints of nausea vomiting and weakness. He reports significant vertigo. Patient reports that he was unable to get out of bed today he became dizzy and fell on the carpet. He denies any loss of consciousness. He admits to vertigo. He reports that this happened proximally for 5 months ago but he did not tell anybody. He also reports that he has had this rash on his bilateral arms for about 10 months. He reports shortness of breath over the last 5 months and occasionally increasing leg swelling. He is referred to the hospitalist service for possible CVA. Hospital Course Hospital Course: The patient was admitted to the hospital. He had a CT scan of the brain which revealed a subacute infarct in the right cerebellar vermis. He was evaluated by physical therapy, occupational therapy and speech therapy. Fortunately he is swallowing well. He does have residual right hemiparesis. He has been started on a 325 mg aspirin as well as a statin medication. At this point he will require subacute rehabilitation. I was notified by the discharge planners that he has a bed available and he will be transitioned to rehab today in stable condition. Physical Exam Vital Signs: Temp Pulse Resp BP Pulse Ox 97.6 F 55 L 20 96/75 L 100 08/09/17 11:16 08/09/17 11:16 08/09/17 11:16 08/09/17 11:16 08/09/17 11:16 Intake & Output 08/08/17 08/09/17 08/10/17 06:59 06:59 06:59 Intake Total 615 1925 Output Total 1375 2100 Balance -760 -175 Weight 122.5 kg 121.3 kg General appearance: PRESENT: no acute distress, well-developed, well-nourished Head exam: PRESENT: atraumatic, normocephalic Eye exam: PRESENT: conjunctiva pink, EOMI, PERRLA. ABSENT: scleral icterus Mouth exam: PRESENT: moist, tongue midline Respiratory exam: PRESENT: clear to auscultation alexys. ABSENT: rales, rhonchi, wheezes Cardiovascular exam: PRESENT: RRR. ABSENT: diastolic murmur, rubs, systolic murmur GI/Abdominal exam: PRESENT: normal bowel sounds, soft. ABSENT: distended, guarding, mass, organolmegaly, rebound, tenderness Extremities exam: PRESENT: full ROM. ABSENT: calf tenderness, clubbing, pedal edema Neurological exam: PRESENT: alert, altered, awake, oriented to person, oriented to place, oriented to time, other - He has right-sided hemiparesis Psychiatric exam: PRESENT: appropriate affect, normal mood. ABSENT: homicidal ideation, suicidal ideation Skin exam: PRESENT: dry, intact, warm. ABSENT: cyanosis, rash Results Laboratory Results: 08/09/17 06:35 08/09/17 06:35 08/09/17 08/09/17 06:35 06:35 WBC 5.7 RBC 4.44 Hgb 12.9 L Hct 39.3 MCV 89 MCH 29.0 MCHC 32.7 RDW 17.1 H Plt Count 134 L Sodium 133.5 L Potassium 4.6 Chloride 99 Carbon Dioxide 20 L Anion Gap 15 BUN 52 H Creatinine 2.44 H Est GFR ( Amer) 33 L Est GFR (Non-Af Amer) 27 L Glucose 103 Calcium 9.3 Magnesium 2.1 07/27/17 07/27/17 07/27/17 05:06 05:06 11:51 Creatine Kinase 64 61 CK-MB (CK-2) 0.65 Troponin I 0.013 NT-Pro-B Natriuret Pep 07/27/17 07/27/17 07/27/17 11:51 19:00 19:00 Creatine Kinase 67 CK-MB (CK-2) 0.79 0.66 Troponin I 0.012 0.013 NT-Pro-B Natriuret Pep 08/09/17 06:35 Creatine Kinase CK-MB (CK-2) Troponin I NT-Pro-B Natriuret Pep 3490 H Impressions: Chest X-Ray 07/26/17 22:27 IMPRESSION: No significant interval change. 2010 [employer]- All Rights Reserved Head CT 07/27/17 00:00 IMPRESSION: Early subacute infarct in the right cerebellar vermis, nonhemorrhagic. Stable left cerebellar hemisphere lacunar infarct and spotty bifrontal and biparietal chronic white matter disease. EVIDENCE OF ACUTE STROKE: NO. Transfer Plan - Disposition Transfer Plan: Transferred to subacute rehabilitation today in stable condition. - Time Spent with Patient Time spent with patient: Greater than 30 Minutes
[2017-08-09] MEDS: SPIRONOLACTONE 25 MG TABLET PO SCH (14:28)
== END 2017-08-09 15:32 | DRG 65 ==
LOC: ER 20:19 → EH 07-27 04:02 → 3S 07-27 17:31
PROVIDERS: ADMIT Family Medicine; ATTEND Family Medicine
DX: I63.9 Cerebral infarction, unspecified (principal); I13.0 Hypertensive heart and chronic kidney disease with heart failure and stage 1 through stage 4 chronic kidney disease, or unspecified chronic kidney disease; I50.22 Chronic systolic (congestive) heart failure; G81.91 Hemiplegia, unspecified affecting right dominant side; Z95.810 Presence of automatic (implantable) cardiac defibrillator; D63.1 Anemia in chronic kidney disease; E03.9 Hypothyroidism, unspecified; E11.22 Type 2 diabetes mellitus with diabetic chronic kidney disease; N18.3 Chronic kidney disease, stage 3 (moderate); M19.90 Unspecified osteoarthritis, unspecified site; I48.91 Unspecified atrial fibrillation; I11.0 Hypertensive heart disease with heart failure; Z79.02 Long term (current) use of antithrombotics/antiplatelets; Z79.82 Long term (current) use of aspirin; Z91.81 History of falling
CPT/HCPCS: 36415; 70450; 71045; 80048; 80053; 80061; 81001; 82550; 82553; 82962; 83036; 83690; 83735; 83880; 84100; 84439; 84443; 84481; 84484; 85025; 85027; 93005; 93010; 94799; 96361; 96372; 96374; 99285; J1644; J1815; J1940; J2060; J2405; J3490; J7030; J7512; J7620

== ENCOUNTER 2017-09-29 21:35 | Inpatient (IN) | payer MEDICAID ==
--- NOTE | 2017-09-29 22:06 | ER Document Report ---
ED General - General Chief Complaint: Breathing Difficulty Stated Complaint: GENERAL WEAKNESS,COUGH Time Seen by Provider: 09/29/17 22:02 Mode of Arrival: Ambulatory Information source: Relative, Transfer Record Notes: 62-year-old man With a history of CVA (hemiparesis, aphasia, poor historian), CHF (pacemaker), diabetes, chronic kidney disease. Patient is sent in from [facility] because of increasing edema and nonproductive cough. TRAVEL OUTSIDE OF THE [place] IN LAST 30 DAYS: No - HPI Onset: Last week Onset/Duration: Gradual Quality of pain: No pain Severity: None Pain Level: Denies Associated symptoms: Nonproductive cough, Other - Significant increase in edema. denies: Chills, Fever Exacerbated by: Denies Relieved by: Denies Similar symptoms previously: Yes Recently seen / treated by doctor: Yes - Related Data Allergies/Adverse Reactions: No Known Allergies Allergy (Verified 07/27/17 05:17) Past Medical History - General Information source: Relative, Transfer Record, Outside Facility Records - Social History Smoking Status: Unknown if Ever Smoked Cigarette use (# per day): No Chew tobacco use (# tins/day): No Frequency of alcohol use: None Drug Abuse: None Family History: Arthritis, CAD, COPD - Past Medical History Cardiac Medical History: Reports: Hx Congestive Heart Failure, Hx Hypercholesterolemia, Hx Hypertension Pulmonary Medical History: Reports: Hx Pneumonia Denies: Hx Tuberculosis Endocrine Medical History: Reports: Hx Diabetes Mellitus Type 2 Renal/ Medical History: Denies: Hx Peritoneal Dialysis Musculoskeltal Medical History: Reports Hx Arthritis Psychiatric Medical History: Denies: Hx Depression Traumatic Medical History: Reports: Hx Fractures - foot 30 yrs ago Past Surgical History: Reports: Hx Cardiac Surgery - paced/defib x2, Hx Pacemaker - Immunizations Hx Diphtheria, Pertussis, Tetanus Vaccination: No - unk Hx Pneumococcal Vaccination: 02/13/16 Review of Systems - Review of Systems Constitutional: No symptoms reported EENT: No symptoms reported Cardiovascular: See HPI Respiratory: See HPI Gastrointestinal: No symptoms reported Genitourinary: No symptoms reported Male Genitourinary: No symptoms reported Musculoskeletal: No symptoms reported Skin: No symptoms reported Hematologic/Lymphatic: No symptoms reported Neurological/Psychological: No symptoms reported Physical Exam - Vital signs Vitals: Resp 21 H 09/29/17 21:40 Notes: Physical exam: GENERAL: 62-year-old man, nonverbal, persistent nonproductive cough HEAD: Atraumatic, normocephalic. EYES: Pupils equal round and reactive to light, extraocular movements intact, sclera anicteric, conjunctiva are normal. ENT: TMs normal, nares patent, oropharynx clear without exudates. Moist mucous membranes. NECK: Normal range of motion, supple without obvious mass or JVD. LUNGS: Breath sounds clear to auscultation bilaterally and equal. No wheezes rales or rhonchi. HEART: Regular rate and rhythm without murmurs, rubs or gallops. ABDOMEN: Soft, normoactive bowel sounds. No tenderness to palpation. No guarding, no rebound. No masses appreciated. EXTREMITIES: 3+ lower extremity edema up to the thighs NEUROLOGICAL: Cranial nerves II through XII grossly intact. Nonverbal SKIN: Warm, Dry, normal turgor, no rashes or lesions noted. Course - Vital Signs Vital signs: Temp Pulse Resp BP Pulse Ox 98.0 F 60 21 H 108/71 100 09/30/17 02:15 09/30/17 02:15 09/30/17 02:15 09/30/17 02:15 09/30/17 02:15 - Laboratory Result Diagrams: 09/29/17 22:09 09/29/17 23:05 Laboratory results interpreted by me: 09/29/17 09/29/17 09/29/17 22:09 22:09 22:09 RDW 17.9 H Plt Count 143 L PT 17.9 H Sodium Chloride Carbon Dioxide Anion Gap BUN Creatinine Est GFR ( Amer) Est GFR (Non-Af Amer) Glucose Total Bilirubin Direct Bilirubin Alkaline Phosphatase NT-Pro-B Natriuret Pep 9720 H Total Protein 09/29/17 23:05 RDW Plt Count PT Sodium 148.4 H Chloride 109 H Carbon Dioxide 17 L Anion Gap 22 H BUN 69 H Creatinine 3.66 H Est GFR ( Amer) 20 L Est GFR (Non-Af Amer) 17 L Glucose 66 L Total Bilirubin 2.0 H Direct Bilirubin 1.3 H Alkaline Phosphatase 207 H NT-Pro-B Natriuret Pep Total Protein 9.6 H - Diagnostic Test Radiology reviewed: Image reviewed, Reports reviewed - Cardiomegaly with fluid congestion - EKG Interpretation by Me Rate: Normal - EKG shows a paced rhythm at a ventricular rate of 60, it appears to me like there is 100% capture. Critical Care Note - Critical Care Note Total time excluding time spent on procedures (mins): 60 Discharge - Discharge Clinical Impression: Decompensated heart failure, Acute on chronic kidney injury Condition: Stable Disposition: ADMITTED INPATIENT Admitting Provider: Hospitalist - Dr Falcon Unit Admitted: Telemetry
[2017-09-29 22:21] LABS: HEMATOCRIT 42.2 % (37.9-51.0); HEMOGLOBIN 13.6 g/dL (13.5-17.0); MEAN CORPUSCULAR HEMOGLOBIN 28.8 pg (27.0-33.4); MEAN CORPUSCULAR HGB CONC 32.2 g/dL (32.0-36.0); MEAN CORPUSCULAR VOLUME 90 fl (80-97); PLATELET COUNT 143 10^3/uL (150-450); RED BLOOD COUNT 4.71 10^6/uL (4.35-5.55); RED CELL DISTRIBUTION WIDTH 17.9 % (11.5-14.0); WHITE BLOOD COUNT 6.6 10^3/uL (4.0-10.5)
[2017-09-29 22:43] LABS: INTERNATIONAL RATION (INR) 1.39; PROTHROMBIN TIME 17.9 SEC (11.4-15.4)
--- NOTE | 2017-09-29 22:48 | RADIOLOGY REPORT (SQ) ---
EXAM DESCRIPTION: CHEST SINGLE VIEW COMPLETED DATE/TIME: 09/29/2017 10:25 pm REASON FOR STUDY: cough COMPARISON: 07/26/2017 in December 2011 17 EXAM PARAMETERS: NUMBER OF VIEWS: One view. TECHNIQUE: Single frontal radiographic view of the chest acquired. RADIATION DOSE: NA LIMITATIONS: None. FINDINGS: LUNGS AND PLEURA: Similar atelectasis -scarring in the left upper lobe. No new consolidat ion or pleural effusion. No pneumothorax. MEDIASTINUM AND HILAR STRUCTURES: Stable. HEART AND VASCULAR STRUCTURES: Stable. BONES: No acute findings. HARDWARE: Cardiac defibrillator. OTHER: No other significant finding. IMPRESSION: NO ACUTE RADIOGRAPHIC FINDING IN THE CHEST. TECHNICAL DOCUMENTATION: JOB ID: [id number] [id number] 2010 [employer]- All Rights Reserved Reading location - IP/workstation name: [email or web address]
[2017-09-29 22:50] LABS: ABSOLUTE LYMPHOCYTES# (MANUAL) 1.5 10^3/uL (0.5-4.7); ABSOLUTE MONOCYTES # (MANUAL) 0.9 10^3/uL (0.1-1.4); ABSOLUTE NEUTROPHILS# (MANUAL) 4.1 10^3/uL (1.7-8.2); BASOPHILS % (MANUAL) 0 % (0-2); CREATINE KINASE MB 0.96 ng/mL (<4.55); EOSINOPHILS % (MANUAL) 2 % (0-6); LYMPHOCYTES % (MANUAL) 23 % (13-45); MONOCYTES % (MANUAL) 13 % (3-13); SEGMENTED NEUTROPHILS % (MAN) 62 % (42-78); TOTAL CELLS COUNTED 100; TROPONIN I 0.013 ng/mL
[2017-09-29 22:51] LABS: ANISOCYTOSIS 1+; OVALOCYTES SLIGHT; POIKILOCYTOSIS SLIGHT
[2017-09-29 22:52] LABS: PLATELET COMMENT ADEQUATE
--- NOTE | 2017-09-29 23:01 | EKG REPORT ---
SEVERITY:- ABNORMAL ECG - VENTRICULAR PACED RHYTHM : Confirmed by: Noel Ortega 29-Sep-2017 23:00:56
[2017-09-29 23:38] LABS: ALANINE AMINOTRANSFERASE 37 U/L (21-72); ALKALINE PHOSPHATASE 207 U/L (38-126); ASPARTATE AMINO TRANSFERASE 50 U/L (17-59); BILIRUBIN,DIRECT 1.3 mg/dL (0.0-0.4); BLOOD UREA NITROGEN 69 mg/dL (7-20); CALCIUM 9.3 mg/dL (8.4-10.2); CREATINE KINASE 158 U/L (55-170); GLUCOSE 66 mg/dL (75-110); POTASSIUM 4.9 mmol/L (3.6-5.0); TOTAL PROTEIN 9.6 g/dL (6.3-8.2)
[2017-09-29 23:43] LABS: CARBON DIOXIDE 17 mmol/L (22-30); CHLORIDE 109 mmol/L (98-107); SODIUM 148.4 mmol/L (137-145)
[2017-09-29 23:45] LABS: ANION GAP 22 (5-19)
[2017-09-30] MEDS ORDERED: FUROSEMIDE INJ/PF 40 MG/4 ML SDV IV ONE (00:16)
[2017-09-30] MEDS ORDERED: ACETAMINOPHEN 325 MG TABLET PO PRN (00:24)
[2017-09-30] MEDS ORDERED: PROMETHAZINE HCL INJ 25 MG/1 ML VIAL IV PRN (00:24)
[2017-09-30] MEDS ORDERED: GLUCAGON,HUMAN RECOMB 1 MG INJ IM PRN (00:30)
[2017-09-30] MEDS ORDERED: DEXTROSE 40% GEL 15 GM TUBE PO PRN ×2 (00:30)
[2017-09-30] MEDS ORDERED: INSULIN LISPRO 100 UNIT/ML 3 ML VIAL SUBCUT PRN (00:30)
[2017-09-30] MEDS ORDERED: DEXTROSE 50%-WATER 25 GM/50 ML DISP.SYRIN IV PRN ×2 (00:30)
[2017-09-30 00:44] LABS: ARTERIAL BLOOD BASE EXCESS -1.5 mmol/L; ARTERIAL BLOOD HCO3 22.7 mmol/L (20-26); ARTERIAL BLOOD O2 SATURATION 96.3 % (94-98); ARTERIAL BLOOD PCO2 36.6 mmHg (35-45); ARTERIAL BLOOD PH 7.41 (7.35-7.45); ARTERIAL BLOOD TOTAL CO2 23.8 mmol/L (23-27)
[2017-09-30 00:45] LABS: ARTERIAL BLOOD FIO2 2.5L
[2017-09-30 02:05] LABS: AMORPHOUS SEDIMENT,URINE TRACE /HPF; APPEARANCE,URINE SLIGHTLY-CLOUDY; BILIRUBIN,URINE NEGATIVE (NEGATIVE); COLOR,URINE YELLOW; GLUCOSE, URINE NEGATIVE (NEGATIVE); KETONES,URINE NEGATIVE (NEGATIVE); LEUKOCYTE ESTERASE,URINE NEGATIVE (NEGATIVE); NITRITE,URINE NEGATIVE (NEGATIVE); PROTEIN,URINE NEGATIVE (NEGATIVE); URINE SPECIFIC GRAVITY 1.013
[2017-09-30 04:42] LABS: HEMATOCRIT 37.4 % (37.9-51.0); HEMOGLOBIN 12.1 g/dL (13.5-17.0); MEAN CORPUSCULAR HEMOGLOBIN 28.5 pg (27.0-33.4); MEAN CORPUSCULAR HGB CONC 32.4 g/dL (32.0-36.0); MEAN CORPUSCULAR VOLUME 88 fl (80-97); PLATELET COUNT 123 10^3/uL (150-450); RED BLOOD COUNT 4.24 10^6/uL (4.35-5.55); RED CELL DISTRIBUTION WIDTH 17.2 % (11.5-14.0); WHITE BLOOD COUNT 5.8 10^3/uL (4.0-10.5)
[2017-09-30] MEDS ORDERED: GUAIFENESIN/D-METHORPHAN (200-20 MG) SYRUP 10 ML PO PRN (04:49)
[2017-09-30 05:03] LABS: ANION GAP 17 (5-19); BLOOD UREA NITROGEN 72 mg/dL (7-20); CARBON DIOXIDE 23 mmol/L (22-30); CHLORIDE 108 mmol/L (98-107); GLUCOSE 76 mg/dL (75-110); SODIUM 147.9 mmol/L (137-145)
[2017-09-30 05:14] LABS: POTASSIUM 3.8 mmol/L (3.6-5.0)
--- NOTE | 2017-09-30 05:35 | PDOC H&P ---
History of Present Illness Admission Date/PCP: LONNIE SNOWDEN MD Patient complains of: Worsening cough and shortness of breath since yesterday. History of Present Illness: KILEY DAWSON is a 62 year old male morbidly obese with history of cardiomyopathy (possibly nonischemic) and chronic combined CHF (post ICD with EF = 20% on 06/21/2017), severe pulmonary hypertension (on 2 L oxygen at night), CKD stage 3 and recent CVA (with right-sided weakness and dysarthria) was brought from [facility] with above-mentioned complaints. It was very difficult to obtain an accurate history from him or his sister at bedside. The patient complained of chronic chest pain (unable to provide any further history) but he denied any fever or chills, nausea vomiting or any abdominal pain. He also complained of increased anasarca and decreased urine output recently. In the ED, his temperature was 97.8, heart rate 60, respiratory rate 21, blood pressure 113/69 with oxygen saturation of 100% on 2 L nasal cannula. His WBC was 6.6 and his hemoglobin was 13.6. His troponin was 0.013 and proBNP was 9720. His BUN/creatinine was 69/3.66 up from 52/2.44 on 08/09/2017. A CXR was done which did not show any acute findings. He received 80 mg IV Lasix 1. Past Medical History Medical History: Other - According to the patient and his sister and based on previous records. Cardiac Medical History: Reports: Congestive Heart Failure - combined., Hyperlipidema, Hypertension, Other - severe cardiomyopathy and pulmonary hypertension. Pulmonary Medical History: Reports: Pneumonia Denies: Tuberculosis Neurological Medical History: Reports: Ischemic CVA Endocrine Medical History: Reports: Diabetes Mellitus Type 2 Renal/ Medical History: Reports: Chronic Kidney Disease Musculoskeltal Medical History: Reports: Arthritis Psychiatric Medical History: Denies: Depression Past Surgical History Past Surgical History: Reports: Pacemaker - ICD Social History Smoking Status: Former Smoker Cigarettes Packs Per Day: 1 - 1 pack a day for more than 20 years. He quit 30 years ago. Frequency of Alcohol Use: None - Used to drink heavily for about 30 years. He quit many years ago. Hx Recreational Drug Use: No Drugs: None Hx Prescription Drug Abuse: No Family History Family History: Arthritis, CAD, COPD Parental Family History Reviewed: Yes - Maternal grandmother: CAD, sister: DM 2. Children Family History Reviewed: No Sibling(s) Family History Reviewed.: Yes Medication/Allergy Home Medications: Amiodarone HCl [Cordarone 200 mg Tablet] 400 mg PO DAILY 07/27/17 Furosemide [Lasix 40 mg Tablet] 40 mg PO QAM 07/27/17 Losartan Potassium [Cozaar 50 mg Tablet] 50 mg PO Q12 07/27/17 Metoprolol Succinate [Toprol Xl 50 mg Tab.sr] 200 mg PO DAILY 07/27/17 Prednisone [Deltasone 1 mg Tablet] 1 mg PO DAILY 07/27/17 Sucralfate [Carafate 1 gm Tablet] 1 gm PO ACHS 07/27/17 Acetaminophen [Tylenol 325 mg Tablet] 650 mg PO Q4HP PRN tablet 08/09/17 Aspirin [Ecotrin 325 mg EC Tablet] 325 mg PO DAILY tabec 08/09/17 Atorvastatin Calcium [Lipitor 40 mg Tablet] 40 mg PO QHS tablet 08/09/17 Docusate Sodium [Colace 100 mg Capsule] 100 mg PO BIDP PRN capsule 08/09/17 Spironolactone [Aldactone 25 mg Tablet] 25 mg PO DAILY@1400 tablet 08/09/17 Allergies/Adverse Reactions: No Known Allergies Allergy (Verified 07/27/17 05:17) Review of Systems ROS unobtainable: Other - Pertinent positives and negatives as detailed in the HPI. Physical Exam Vital Signs: Temp Pulse Resp BP Pulse Ox 97.8 F 18 113/69 98 09/29/17 22:00 09/29/17 23:26 09/29/17 23:26 09/29/17 23:26 General appearance: PRESENT: mild distress, well-developed, well-nourished Head exam: PRESENT: atraumatic, normocephalic Eye exam: PRESENT: conjunctiva pink, EOMI. ABSENT: scleral icterus Mouth exam: PRESENT: moist, neck supple Neck exam: PRESENT: full ROM. ABSENT: JVD Respiratory exam: PRESENT: decreased breath sounds, rales, rhonchi. ABSENT: wheezes Cardiovascular exam: PRESENT: RRR, +S1, +S2 Pulses: PRESENT: normal dorsalis pedis pul GI/Abdominal exam: PRESENT: distended, firm, normal bowel sounds. ABSENT: rebound, tenderness Rectal exam: PRESENT: deferred Extremities exam: PRESENT: pedal edema - bilaterally +3 or +4. Musculoskeletal exam: PRESENT: other - limited range of motion bilateral lower extremities left >right. Neurological exam: PRESENT: alert, altered, motor sensory deficit - Left leg motor 3-/5, right leg motor 3+/5, decreased right hand button splitter and decreased sensation in the right leg. Skin exam: PRESENT: dry, erythema - Right leg, warm - Right leg. ABSENT: rash Results Laboratory Results: 09/29/17 22:09 09/29/17 23:05 09/29/17 09/29/17 09/29/17 22:09 22:09 23:05 WBC 6.6 RBC 4.71 Hgb 13.6 Hct 42.2 MCV 90 MCH 28.8 MCHC 32.2 RDW 17.9 H Plt Count 143 L Seg Neutrophils % Not Reportable Lymphocytes % Not Reportable Monocytes % Not Reportable Eosinophils % Not Reportable Basophils % Not Reportable Absolute Neutrophils Not Reportable Absolute Lymphocytes Not Reportable Absolute Monocytes Not Reportable Absolute Eosinophils Not Reportable Absolute Basophils Not Reportable Sodium Cancelled 148.4 H Potassium Cancelled 4.9 Chloride Cancelled 109 H Carbon Dioxide Cancelled 17 L Anion Gap Cancelled 22 H BUN Cancelled 69 H Creatinine Cancelled 3.66 H Est GFR ( Amer) Cancelled 20 L Est GFR (Non-Af Amer) Cancelled 17 L Glucose Cancelled 66 L Calcium Cancelled 9.3 Total Bilirubin Cancelled 2.0 H AST Cancelled 50 ALT Cancelled 37 Alkaline Phosphatase Cancelled 207 H Total Protein Cancelled 9.6 H Albumin Cancelled 4.0 09/29/17 09/29/17 09/29/17 22:09 22:09 23:05 Creatine Kinase Cancelled 158 CK-MB (CK-2) 0.96 Troponin I 0.013 NT-Pro-B Natriuret Pep 9720 H EKG Comments: 12-Lead EKG, paced ventricle, regular rate 60, right axis deviation, poor R- wave propagation, QTC prolongation. Similar when compared to previous 12-lead EKG done on 07/26/2017. Impressions: Chest X-Ray 09/29/17 22:06 IMPRESSION: NO ACUTE RADIOGRAPHIC FINDING IN THE CHEST. Assessment & Plan - Diagnosis (1) Acute on chronic combined systolic and diastolic CHF, NYHA class 4 Is this a current diagnosis for this admission?: Yes Plan: CXR reviewed. We will continue to cycle cardiac enzymes. He had an echocardiogram on 06/21/2017 when he had this his CVA (will not repeat). We will continue 80 mg IV Lasix BID with strict I's and O's. BIPAP as needed. (2) Acute renal failure superimposed on stage 3 chronic kidney disease Qualifiers: Acute renal failure type: unspecified Qualified Code(s): N17.9 - Acute kidney failure, unspecified; N18.3 - Chronic kidney disease, stage 3 (moderate) ; N18.3 - Chronic kidney disease, stage 3 (moderate) Is this a current diagnosis for this admission?: Yes Plan: Will hold all nephrotoxic medications except IV Lasix. We will continue to monitor his kidney function and urine output. The patient is not currently following with any tannery gummer. Discussed possibly needing dialysis if worsening kidney function with current medical management. His sister wants to discuss it further with the family. (3) Metabolic acidosis Is this a current diagnosis for this admission?: Yes Plan: gap acidosis but there is no evidence of any sepsis or DKA at this time or any alcoholism, in the setting of ARF. UA and chest x-ray negative. Will follow-up ABG and lactic acid level. He probably will benefit from a nephrology consultation. (4) Type 2 diabetes mellitus Qualifiers: Diabetes mellitus lobsterman insulin use: unspecified lobsterman insulin use status Is this a current diagnosis for this admission?: Yes Plan: The patient said that he was on oral hypoglycemic medications but there were none listed. We will start Humalog sliding scale while inpatient. (5) Cardiomyopathy Qualifiers: Cardiomyopathy type: unspecified Qualified Code(s): I42.9 - Cardiomyopathy , unspecified Is this a current diagnosis for this admission?: Yes Plan: Severe with severe pulmonary hypertension. Amiodarone is listed on his medications' list but no anticoagulation. Needs further clarification of his home medications's list. Poor prognosis given advanced cardiac disease and worsening kidney function. Discussed CODE STATUS with the patient in the presence of his sister and other family members, he still wants to be full code. - Time Time Spent: Greater than 70 Minutes - Inpatient Certification Based on my medical assessment, after consideration of the patient's comorbidities, presenting symptoms, or acuity I expect that the services needed warrant INPATIENT care.: Yes I certify that my determination is in accordance with my understanding of Medicare's requirements for reasonable and necessary INPATIENT services [42 CFR 412.3e].: Yes
[2017-09-30] MEDS: LANSOPRAZOLE 30 MG TAB.RAP.DR PO SCH (06:41)
[2017-09-30] MEDS: HEPARIN SOD (PORCINE) 5,000 UNIT/ML 1 ML SYRINGE SUBCUT SCH ×3 (06:41→21:38)
[2017-09-30] MEDS: ASPIRIN 325 MG TABLET, ENT COATED PO SCH (09:49)
[2017-09-30] MEDS: FUROSEMIDE INJ/PF 100 MG/10 ML SDV IV SCH ×2 (09:53→21:39)
[2017-09-30] MEDS ORDERED: AMIODARONE HCL 200 MG TABLET PO ONE (11:00)
[2017-09-30] MEDS ORDERED: NITROGLYCERIN 5 MG (0.2 MG/HR) PATCH.TD24 TD ONE (11:15)
--- NOTE | 2017-09-30 14:51 | RADIOLOGY REPORT (SQ) ---
EXAM DESCRIPTION: VENOUS UNILATERAL LOWER COMPLETED DATE/TIME: 09/30/2017 2:25 pm REASON FOR STUDY: left leg swelling and erythema. COMPARISON: None. TECHNIQUE: Dynamic and static he scale and color images acquired of the left leg venous system. Se lected spectral images acquired with additional compression and augmentation maneuvers. The contralat eral common femoral vein and saphenofemoral junction were also imaged. Images stored on PACS. LIMITATIONS: None. FINDINGS: COMMON FEMORAL: Normal phasicity, compression and augmentation. No visualized echogenic ma terial on he scale. No defects on color images. FEMORAL: Normal compression and augmentation. No visualized echogenic material on he scale. No defe cts on color images. POPLITEAL: Normal compression, augmentation. No visualized echogenic material on he scale. No defec ts on color images. CALF VESSELS: Normal compression, augmentation. No visualized echogenic material on he scale. No de fects on color images. GSV and SSV: Normal compression, augmentation. No visualized echogenic material on he scale. No def ects on color images. ANY DEEP VENOUS INSUFFICIENCY: Not evaluated. ANY EVIDENCE OF POPLITEAL CYST: No. OTHER: No other significant finding. CONTRALATERAL COMMON FEMORAL VEIN AND SAPHENOFEMORAL JUNCTION: Normal phasicity, compression and augmentation. No visualized echogenic material on he scale. No de fects on color images. IMPRESSION: NO EVIDENCE DVT OR SVT IN THE LEFT LEG. TECHNICAL DOCUMENTATION: JOB ID: [id number] [employer]- All Rights Reserved Reading location - IP/workstation name: [email or web address]
--- NOTE | 2017-09-30 16:21 | PDOC PROGRESS REPORT ---
Subjective Progress Note for:: 09/30/17 Subjective:: Patient seen during morning rounds with nurse. Patient admits to feeling better though persistent orthopnea and nonproductive cough. Otherwise no overnight events patient tolerated therapy well Reason For Visit: CHF EXACERBATION/ACUTE ON CHRONIC RENAL FAILURE Physical Exam Vital Signs: Temp Pulse Resp BP Pulse Ox 97.7 F 60 16 100/72 99 09/30/17 12:00 09/30/17 14:00 09/30/17 12:11 09/30/17 12:00 09/30/17 12:11 Intake & Output 09/29/17 09/30/17 10/01/17 11:59 11:59 11:59 Intake Total 0 Output Total 700 Balance -700 Weight 135.6 kg General appearance: PRESENT: mild distress, morbidly obese Head exam: PRESENT: atraumatic, normocephalic Eye exam: PRESENT: conjunctiva pink, EOMI, PERRLA. ABSENT: scleral icterus Ear exam: PRESENT: normal external ear exam Mouth exam: PRESENT: moist, tongue midline Neck exam: PRESENT: JVD. ABSENT: carotid bruit, lymphadenopathy, thyromegaly Respiratory exam: PRESENT: crackles, prolonged expiratory phas, retraction, symmetrical, tachypnea. ABSENT: rhonchi, stridor, wheezes Cardiovascular exam: PRESENT: gallop, +S1, +S2, systolic murmur Pulses: PRESENT: normal dorsalis pedis pul Vascular exam: PRESENT: normal capillary refill GI/Abdominal exam: PRESENT: normal bowel sounds, soft. ABSENT: distended, guarding, mass, organolmegaly, rebound, tenderness Rectal exam: PRESENT: deferred Extremities exam: PRESENT: +2 edema Neurological exam: PRESENT: alert, awake, oriented to person, oriented to place , oriented to time, oriented to situation, CN II-XII grossly intact. ABSENT: motor sensory deficit Skin exam: PRESENT: dry, intact, warm. ABSENT: cyanosis, rash Results Laboratory Results: 09/30/17 03:52 09/30/17 03:52 09/30/17 09/30/17 09/30/17 01:44 03:52 03:52 WBC 5.8 RBC 4.24 L Hgb 12.1 L Hct 37.4 L MCV 88 MCH 28.5 MCHC 32.4 RDW 17.2 H Plt Count 123 L Sodium 147.9 H Potassium 3.8 D Chloride 108 H Carbon Dioxide 23 Anion Gap 17 BUN 72 H Creatinine 3.69 H Est GFR ( Amer) 20 L Est GFR (Non-Af Amer) 17 L Glucose 76 Lactic Acid Calcium 9.0 Urine Color YELLOW Urine Appearance SLIGHTLY-CLOUDY Urine pH 5.0 Ur Specific [place] 1.013 Urine Protein NEGATIVE Urine Glucose (UA) NEGATIVE Urine Ketones NEGATIVE Urine Blood NEGATIVE Urine Nitrite NEGATIVE Ur Leukocyte Esterase NEGATIVE Urine WBC (Auto) 2 Urine RBC (Auto) 1 09/30/17 05:57 WBC RBC Hgb Hct MCV MCH MCHC RDW Plt Count Sodium Potassium Chloride Carbon Dioxide Anion Gap BUN Creatinine Est GFR ( Amer) Est GFR (Non-Af Amer) Glucose Lactic Acid 1.4 Calcium Urine Color Urine Appearance Urine pH Ur Specific [place] Urine Protein Urine Glucose (UA) Urine Ketones Urine Blood Urine Nitrite Ur Leukocyte Esterase Urine WBC (Auto) Urine RBC (Auto) 09/30/17 09/30/17 03:52 10:13 Troponin I 0.015 0.018 Impressions: Chest X-Ray 09/29/17 22:06 IMPRESSION: NO ACUTE RADIOGRAPHIC FINDING IN THE CHEST. Venous Doppler Study 09/30/17 00:00 IMPRESSION: NO EVIDENCE DVT OR SVT IN THE LEFT LEG. Assessment & Plan - Diagnosis (1) Pulmonary hypertension Is this a current diagnosis for this admission?: Yes Plan: Trial of BiPAP, supplemental oxygen (2) Acute on chronic combined systolic and diastolic CHF, NYHA class 4 Is this a current diagnosis for this admission?: Yes Plan: Severe end-stage heart failure with an ejection fraction less than 20%. 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 - Time Time Spent with patient: 15-24 minutes - Inpatient Certification Medical Necessity: Need Close Monitoring Due to Risk of Patient Decompensation
[2017-09-30] MEDS: ALBUTEROL SULFATE 0.083% NEB 2.5 MG/3 ML AMPUL NEB PRN ×2 (17:26→22:48)
[2017-09-30] MEDS: ATORVASTATIN CALCIUM 40 MG TABLET PO SCH (21:39)
[2017-10-01] MEDS: HEPARIN SOD (PORCINE) 5,000 UNIT/ML 1 ML SYRINGE SUBCUT SCH ×3 (05:39→21:36)
[2017-10-01] MEDS: LANSOPRAZOLE 30 MG TAB.RAP.DR PO SCH (05:39)
[2017-10-01 06:05] LABS: HEMATOCRIT 34.9 % (37.9-51.0); HEMOGLOBIN 11.1 g/dL (13.5-17.0); MEAN CORPUSCULAR HEMOGLOBIN 27.9 pg (27.0-33.4); MEAN CORPUSCULAR HGB CONC 31.9 g/dL (32.0-36.0); MEAN CORPUSCULAR VOLUME 87 fl (80-97); PLATELET COUNT 111 10^3/uL (150-450); RED BLOOD COUNT 3.99 10^6/uL (4.35-5.55); RED CELL DISTRIBUTION WIDTH 16.9 % (11.5-14.0); WHITE BLOOD COUNT 4.8 10^3/uL (4.0-10.5)
[2017-10-01 06:20] LABS: ANION GAP 14 (5-19); BLOOD UREA NITROGEN 68 mg/dL (7-20); CALCIUM 8.6 mg/dL (8.4-10.2); CARBON DIOXIDE 23 mmol/L (22-30); CHLORIDE 103 mmol/L (98-107); GLUCOSE 85 mg/dL (75-110); PHOSPHORUS 4.9 mg/dL (2.5-4.5); POTASSIUM 3.7 mmol/L (3.6-5.0); SODIUM 139.6 mmol/L (137-145)
[2017-10-01] MEDS: FUROSEMIDE INJ/PF 100 MG/10 ML SDV IV SCH ×2 (10:42→22:51)
[2017-10-01] MEDS: AMIODARONE HCL 200 MG TABLET PO SCH (10:43)
[2017-10-01] MEDS: ASPIRIN 325 MG TABLET, ENT COATED PO SCH (10:43)
[2017-10-01] MEDS: NITROGLYCERIN 5 MG (0.2 MG/HR) PATCH.TD24 TD SCH (10:44)
[2017-10-01] MEDS: ALBUTEROL SULFATE 0.083% NEB 2.5 MG/3 ML AMPUL NEB PRN (14:01)
--- NOTE | 2017-10-01 15:34 | PDOC PROGRESS REPORT ---
Subjective Progress Note for:: 10/01/17 Reason For Visit: 69-year-old male with a history of chronic combined heart failure, severe pulmonary hypertension, chronic respiratory failure with hypoxia, morbid obesity , and recent history of stroke presented to the ED with cough, shortness of breath and increased peripheral edema. Following his hospital stay for the stroke at the end of July, [facility] At the time of admission, his creatinine was also higher than it was when he was discharged from the prior hospital stay. This time it was 3.66. When he was discharged, it was 2.44. His BNP was elevated at 9720. Chest x-ray was read as not showing any acute abnormality. He does have noticeable cardiomegaly. An ICD is present on the film. Based on echocardiogram 06/2017, his EF was 20%. He has been started on IV furosemide 80 mg twice daily. His renal function has remained stable with a creatinine around 3.66. His urine output each day has been about 2 L. Physical Exam Vital Signs: Temp Pulse Resp BP Pulse Ox 98.5 F 89 20 102/63 96 10/01/17 11:53 10/01/17 14:01 10/01/17 14:01 10/01/17 11:53 10/01/17 14:01 Intake & Output 09/30/17 10/01/17 10/02/17 06:59 06:59 06:59 Intake Total 0 1940 Output Total 700 1820 Balance -700 120 Weight 135.6 kg 135.6 kg General appearance: PRESENT: no acute distress Head exam: PRESENT: atraumatic, normocephalic Eye exam: PRESENT: EOMI, PERRLA Neck exam: PRESENT: full ROM, other - Short, thick Respiratory exam: PRESENT: decreased breath sounds, unlabored, wheezes Cardiovascular exam: PRESENT: RRR. ABSENT: diastolic murmur, rubs, systolic murmur GI/Abdominal exam: PRESENT: distended, normal bowel sounds, soft. ABSENT: tenderness Extremities exam: PRESENT: other - 2+ edema from feet to hips, and bilateral upper extremities Neurological exam: PRESENT: alert, awake, oriented to person, oriented to place , oriented to time, oriented to situation, CN II-XII grossly intact. ABSENT: motor sensory deficit Psychiatric exam: PRESENT: appropriate affect, normal mood. ABSENT: homicidal ideation, suicidal ideation Skin exam: PRESENT: dry, intact, warm. ABSENT: cyanosis, rash Results Laboratory Results: 10/01/17 05:19 10/01/17 05:19 10/01/17 10/01/17 05:19 05:19 WBC 4.8 RBC 3.99 L Hgb 11.1 L Hct 34.9 L MCV 87 MCH 27.9 MCHC 31.9 L RDW 16.9 H Plt Count 111 L Sodium 139.6 Potassium 3.7 Chloride 103 Carbon Dioxide 23 Anion Gap 14 BUN 68 H Creatinine 3.66 H Est GFR ( Amer) 20 L Est GFR (Non-Af Amer) 17 L Glucose 85 Calcium 8.6 Phosphorus 4.9 H Magnesium 2.2 09/30/17 09/30/17 09/30/17 03:52 10:13 16:30 Troponin I 0.015 0.018 0.019 Impressions: Chest X-Ray 09/29/17 22:06 IMPRESSION: NO ACUTE RADIOGRAPHIC FINDING IN THE CHEST. Venous Doppler Study 09/30/17 00:00 IMPRESSION: NO EVIDENCE DVT OR SVT IN THE LEFT LEG. Assessment & Plan - Diagnosis (1) Acute on chronic combined systolic and diastolic CHF, NYHA class 4 Is this a current diagnosis for this admission?: Yes Plan: Continue Lasix 80 mg IV twice a day for now. Continue to monitor electrolytes, and renal function. (2) Acute renal failure superimposed on stage 3 chronic kidney disease Qualifiers: Acute renal failure type: unspecified Qualified Code(s): N17.9 - Acute kidney failure, unspecified; N18.3 - Chronic kidney disease, stage 3 (moderate) ; N18.3 - Chronic kidney disease, stage 3 (moderate) Is this a current diagnosis for this admission?: Yes Plan: Continue to monitor. Consider nephrology consult if creatinine continues to rise. (3) Pulmonary hypertension Is this a current diagnosis for this admission?: Yes Plan: See above (4) Type 2 diabetes mellitus Qualifiers: Diabetes mellitus [facility] insulin use: unspecified buttermaker insulin use status Is this a current diagnosis for this admission?: Yes Plan: Hemoglobin A1c July 2017 was 6.5%. Continue sliding scale for insulin. (5) CVA (cerebral vascular accident) Is this a current diagnosis for this admission?: No (6) Hypothyroid Qualifiers: Hypothyroidism type: acquired Qualified Code(s): E03.9 - Hypothyroidism, unspecified Is this a current diagnosis for this admission?: Yes Plan: Check TSH - Time Time Spent with patient: 35 or more minutes Medications reviewed and adjusted accordingly: Yes Anticipated discharge: SNF - Inpatient Certification Based on my medical assessment, after consideration of the patient's comorbidities, presenting symptoms, or acuity I expect that the services needed warrant INPATIENT care.: Yes I certify that my determination is in accordance with my understanding of Medicare's requirements for reasonable and necessary INPATIENT services [42 CFR 412.3e].: Yes Medical Necessity: Failure to Improve With Outpatient Therapy, Significant Comorbidiites Make Outpatient Treatment Too Risky, Need Close Monitoring Due to Risk of Patient Decompensation
[2017-10-01] MEDS: ATORVASTATIN CALCIUM 40 MG TABLET PO SCH (21:36)
[2017-10-02] MEDS: HEPARIN SOD (PORCINE) 5,000 UNIT/ML 1 ML SYRINGE SUBCUT SCH ×3 (05:55→22:27)
[2017-10-02] MEDS: LANSOPRAZOLE 30 MG TAB.RAP.DR PO SCH (05:56)
[2017-10-02 06:42] LABS: ANION GAP 13 (5-19); BLOOD UREA NITROGEN 70 mg/dL (7-20); CALCIUM 8.7 mg/dL (8.4-10.2); CARBON DIOXIDE 22 mmol/L (22-30); CHLORIDE 103 mmol/L (98-107); GLUCOSE 92 mg/dL (75-110); POTASSIUM 3.7 mmol/L (3.6-5.0); SODIUM 137.7 mmol/L (137-145)
[2017-10-02] MEDS ORDERED: NORMAL SALINE 250 ML with FUROSEMIDE 250 MG IV PRN ×2 (07:17)
[2017-10-02] MEDS: ALBUTEROL SULFATE 0.083% NEB 2.5 MG/3 ML AMPUL NEB PRN ×2 (08:03→21:08)
[2017-10-02] MEDS: ASPIRIN 325 MG TABLET, ENT COATED PO SCH (09:45)
[2017-10-02] MEDS: NITROGLYCERIN 5 MG (0.2 MG/HR) PATCH.TD24 TD SCH (09:45)
[2017-10-02] MEDS: AMIODARONE HCL 200 MG TABLET PO SCH (09:46)
--- NOTE | 2017-10-02 14:46 | PDOC PROGRESS REPORT ---
Subjective Progress Note for:: 10/02/17 Reason For Visit: 69-year-old male with a history of chronic combined heart failure, severe pulmonary hypertension, chronic respiratory failure with hypoxia, morbid obesity , and recent history of stroke presented to the ED with cough, shortness of breath and increased peripheral edema. Following his hospital stay for the stroke at the end of July, he has been living at a intermediate facility. At the time of admission, his creatinine was also higher than it was when he was discharged from the prior hospital stay. This time it was 3.66. When he was discharged, it was 2.44. His BNP was elevated at 9720. Chest x-ray was read as not showing any acute abnormality. He does have noticeable cardiomegaly. An ICD is present on the film. Based on echocardiogram 06/2017, his EF was 20%. He has been started on IV furosemide 80 mg twice daily, initially. This was changed to furosemide infusion to avoid the potential drop in BP from a large dose of furosemide at one time. NATALYA inhibitor/ARB, beta hal, and Spironolactone are held due to hypotension, and renal insufficiency. Physical Exam Vital Signs: Temp Pulse Resp BP Pulse Ox 97.9 F 59 L 20 112/65 99 10/02/17 11:25 10/02/17 11:25 10/02/17 11:25 10/02/17 11:25 10/02/17 11:25 Intake & Output 10/01/17 10/02/17 10/03/17 06:59 06:59 06:59 Intake Total 1940 2867 Output Total 1820 1900 Balance 120 967 Weight 135.6 kg General appearance: PRESENT: no acute distress Head exam: PRESENT: atraumatic, normocephalic Neck exam: PRESENT: other - Short, thick Respiratory exam: PRESENT: decreased breath sounds, unlabored Cardiovascular exam: PRESENT: RRR. ABSENT: diastolic murmur, rubs, systolic murmur GI/Abdominal exam: PRESENT: distended, soft. ABSENT: tenderness Extremities exam: PRESENT: +2 edema - BUE and BLE Neurological exam: PRESENT: alert, awake, oriented to person, oriented to place , oriented to time, oriented to situation, CN II-XII grossly intact. ABSENT: motor sensory deficit Skin exam: PRESENT: dry, intact, warm. ABSENT: cyanosis, rash Results Laboratory Results: 10/01/17 05:19 10/02/17 06:00 10/01/17 10/02/17 05:19 06:00 Sodium 137.7 Potassium 3.7 Chloride 103 Carbon Dioxide 22 Anion Gap 13 BUN 70 H Creatinine 3.50 H Est GFR ( Amer) 22 L Est GFR (Non-Af Amer) 18 L Glucose 92 Calcium 8.7 Magnesium 2.3 TSH 1.95 09/30/17 09/30/17 09/30/17 03:52 10:13 16:30 Troponin I 0.015 0.018 0.019 Impressions: Chest X-Ray 09/29/17 22:06 IMPRESSION: NO ACUTE RADIOGRAPHIC FINDING IN THE CHEST. Venous Doppler Study 09/30/17 00:00 IMPRESSION: NO EVIDENCE DVT OR SVT IN THE LEFT LEG. Assessment & Plan - Diagnosis (1) Acute on chronic combined systolic and diastolic CHF, NYHA class 4 Is this a current diagnosis for this admission?: Yes Plan: Change to furosemide 10 mg/h Continue to monitor electrolytes, and renal function. (2) Acute renal failure superimposed on stage 3 chronic kidney disease Qualifiers: Acute renal failure type: unspecified Qualified Code(s): N17.9 - Acute kidney failure, unspecified; N18.3 - Chronic kidney disease, stage 3 (moderate) ; N18.3 - Chronic kidney disease, stage 3 (moderate) Is this a current diagnosis for this admission?: Yes Plan: His creatinine actually improved today. Continue to monitor. 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 Continue sliding scale for insulin. (5) CVA (cerebral vascular accident) Is this a current diagnosis for this admission?: No (6) Hypothyroid Qualifiers: Hypothyroidism type: acquired Qualified Code(s): E03.9 - Hypothyroidism, unspecified Is this a current diagnosis for this admission?: Yes Plan: TSH is normal. - Time Time Spent with patient: 25-34 minutes Medications reviewed and adjusted accordingly: Yes Anticipated discharge: SNF - Inpatient Certification Based on my medical assessment, after consideration of the patient's comorbidities, presenting symptoms, or acuity I expect that the services needed warrant INPATIENT care.: Yes I certify that my determination is in accordance with my understanding of Medicare's requirements for reasonable and necessary INPATIENT services [42 CFR 412.3e].: Yes Medical Necessity: Failure to Improve With Outpatient Therapy, Significant Comorbidiites Make Outpatient Treatment Too Risky, Need Close Monitoring Due to Risk of Patient Decompensation
[2017-10-02] MEDS: ATORVASTATIN CALCIUM 40 MG TABLET PO SCH (22:27)
[2017-10-03] MEDS ORDERED: FUROSEMIDE INJ/PF 100 MG/10 ML SDV ONE (04:34)
[2017-10-03] MEDS: HEPARIN SOD (PORCINE) 5,000 UNIT/ML 1 ML SYRINGE SUBCUT SCH ×3 (05:01→21:15)
[2017-10-03 05:15] LABS: ANION GAP 10 (5-19); BLOOD UREA NITROGEN 64 mg/dL (7-20); CALCIUM 8.5 mg/dL (8.4-10.2); CARBON DIOXIDE 24 mmol/L (22-30); CHLORIDE 105 mmol/L (98-107); GLUCOSE 84 mg/dL (75-110); POTASSIUM 3.8 mmol/L (3.6-5.0); SODIUM 139.4 mmol/L (137-145)
[2017-10-03] MEDS: LANSOPRAZOLE 30 MG TAB.RAP.DR PO SCH (06:20)
--- NOTE | 2017-10-03 08:29 | PDOC PROGRESS REPORT ---
Subjective Progress Note for:: 10/03/17 Subjective:: No new problems overnight. Reason For Visit: 69-year-old male with a history of chronic combined heart failure, severe pulmonary hypertension, chronic respiratory failure with hypoxia, morbid obesity , and recent history of stroke presented to the ED with cough, shortness of breath and increased peripheral edema. Following his hospital stay for the stroke at the end of July, he has been living at a custodial facility. At the time of admission, his creatinine was also higher than it was when he was discharged from the prior hospital stay. This time it was 3.66. When he was discharged, it was 2.44. His BNP was elevated at 9720. Chest x-ray was read as not showing any acute abnormality. He does have noticeable cardiomegaly. An ICD is present on the film. Based on echocardiogram 06/2017, his EF was 20%. He has been started on IV furosemide 80 mg twice daily, initially. This was changed to furosemide infusion to avoid the potential drop in BP from a large dose of furosemide at one time. NATALYA inhibitor/ARB, beta hal, and Spironolactone are being held due to hypotension, and renal insufficiency. I suspect he will need another several days to diurese given the amount of edema that is present. If is creatinine continues to decrease, he can be started back on the above medications. I discussed his care with his sister today October 03. Physical Exam Vital Signs: Temp Pulse Resp BP Pulse Ox 98.0 F 60 22 H 109/70 100 10/03/17 04:00 10/03/17 07:00 10/03/17 04:00 10/03/17 04:00 10/03/17 04:00 Intake & Output 10/02/17 10/03/17 10/04/17 06:59 06:59 06:59 Intake Total 2867 500 Output Total 1900 2150 Balance 967 -1650 Weight 135.6 kg 142.2 kg General appearance: PRESENT: no acute distress, morbidly obese Head exam: PRESENT: atraumatic, normocephalic Eye exam: PRESENT: EOMI, PERRLA Neck exam: PRESENT: other - Thick, and short Respiratory exam: PRESENT: crackles, decreased breath sounds, unlabored Cardiovascular exam: PRESENT: RRR. ABSENT: diastolic murmur, rubs, systolic murmur GI/Abdominal exam: PRESENT: normal bowel sounds, soft. ABSENT: distended, guarding, mass, organolmegaly, rebound, tenderness Extremities exam: PRESENT: other - 3+ BLE/BUE Neurological exam: PRESENT: alert, awake, oriented to person, oriented to place , oriented to time, oriented to situation, CN II-XII grossly intact. ABSENT: motor sensory deficit Psychiatric exam: PRESENT: appropriate affect, normal mood. ABSENT: homicidal ideation, suicidal ideation Results Laboratory Results: 10/01/17 05:19 10/03/17 03:55 10/03/17 03:55 Sodium 139.4 Potassium 3.8 Chloride 105 Carbon Dioxide 24 Anion Gap 10 BUN 64 H Creatinine 3.00 H Est GFR ( Amer) 26 L Est GFR (Non-Af Amer) 21 L Glucose 84 Calcium 8.5 Magnesium 2.4 H 09/30/17 09/30/17 09/30/17 03:52 10:13 16:30 Troponin I 0.015 0.018 0.019 Impressions: Chest X-Ray 09/29/17 22:06 IMPRESSION: NO ACUTE RADIOGRAPHIC FINDING IN THE CHEST. Venous Doppler Study 09/30/17 00:00 IMPRESSION: NO EVIDENCE DVT OR SVT IN THE LEFT LEG. Assessment & Plan - Diagnosis (1) Acute on chronic combined systolic and diastolic CHF, NYHA class 4 Is this a current diagnosis for this admission?: Yes Plan: Change to furosemide 10 mg/h. Due to a systems error, it was not started until 4am today, eventhough it was ordered yesterday morning. Continue to monitor electrolytes, and renal function. (2) Acute renal failure superimposed on stage 3 chronic kidney disease Qualifiers: Acute renal failure type: unspecified Qualified Code(s): N17.9 - Acute kidney failure, unspecified; N18.3 - Chronic kidney disease, stage 3 (moderate) ; N18.3 - Chronic kidney disease, stage 3 (moderate) Is this a current diagnosis for this admission?: Yes Plan: His creatinine improved again today. Continue to monitor. 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 Continue sliding scale for insulin. (5) CVA (cerebral vascular accident) Qualifiers: CVA mechanism: unspecified Qualified Code(s): I63.9 - Cerebral infarction, unspecified Is this a current diagnosis for this admission?: Yes Plan: H/O stroke. This limits his mobility. He will need to return to a SNF upon discharge. (6) Hypothyroid Qualifiers: Hypothyroidism type: acquired Qualified Code(s): E03.9 - Hypothyroidism, unspecified Is this a current diagnosis for this admission?: Yes Plan: TSH is normal. - Time Time Spent with patient: 25-34 minutes Medications reviewed and adjusted accordingly: Yes Anticipated discharge: SNF - Inpatient Certification Based on my medical assessment, after consideration of the patient's comorbidities, presenting symptoms, or acuity I expect that the services needed warrant INPATIENT care.: Yes I certify that my determination is in accordance with my understanding of Medicare's requirements for reasonable and necessary INPATIENT services [42 CFR 412.3e].: Yes Medical Necessity: Failure to Improve With Outpatient Therapy, Significant Comorbidiites Make Outpatient Treatment Too Risky, Need Close Monitoring Due to Risk of Patient Decompensation
[2017-10-03] MEDS: ALBUTEROL SULFATE 0.083% NEB 2.5 MG/3 ML AMPUL NEB PRN (08:50)
[2017-10-03] MEDS: AMIODARONE HCL 200 MG TABLET PO SCH (09:42)
[2017-10-03] MEDS: ASPIRIN 325 MG TABLET, ENT COATED PO SCH (09:42)
[2017-10-03] MEDS ORDERED: FUROSEMIDE INJ/PF 100 MG/10 ML SDV IV ONE (14:19)
--- NOTE | 2017-10-03 15:07 | Progress Note ---
Provider Note Provider Note: Patient is EKG reviewed. Seems like patient has slow ventricular tachycardia. Patient also seems to be in class IV heart failure. Feel that patient would be best served in tertiary care where there are cardiology subspecialty services such as interventional cardiology and electrophysiology team is available. This was related to the hospitalist. It seems patient was earlier seen at [facility] and may have seen Dr. Manzo in the past. Patient is a poor historian. Who could not tell me further details as to who he was seeing for his cardiac care. Full cardiology report to follow.
--- NOTE | 2017-10-03 15:36 | PDOC CONSULTATION ---
Consultation Consult Date: 10/03/17 Attending physician:: MISHEL PAYNE Consult reason:: Abnormal heart rhythm History of Present Illness Admission Date/PCP: 09/30/17 00:42 LONNIE SNOWDEN MD Patient complains of: Shortness of breath History of Present Illness: KILEY HERRMANN is a 62 year old male morbidly obese with history of cardiomyopathy (possibly nonischemic) and chronic combined CHF (post ICD with EF = 20% on 06/21/2017), severe pulmonary hypertension (on 2 L oxygen at night), CKD stage 3 and recent CVA (with right-sided weakness and dysarthria) was brought from [facility] with above-mentioned complaints. It was very difficult to obtain an accurate history from him or his sister at bedside. The patient complained of chronic chest pain (unable to provide any further history) but he denied any fever or chills, nausea vomiting or any abdominal pain. He also complained of increased anasarca and decreased urine output recently. In the ED, his temperature was 97.8, heart rate 60, respiratory rate 21, blood pressure 113/69 with oxygen saturation of 100% on 2 L nasal cannula. His WBC was 6.6 and his hemoglobin was 13.6. His troponin was 0.013 and proBNP was 9720. His BUN/creatinine was 69/3.66 up from 52/2.44 on 08/09/2017. A CXR was done which did not show any acute findings. He received 80 mg IV Lasix 1. This history was reviewed and confirmed. Patient could not add much to the history except that he had seen a physician at [facility] when he had a defibrillator placed there. He used to follow-up with Dr. Byrd who has since then retired. He claims he might have seen Dr. Manzo at [facility] or followed up with another doctor at their [facility] office. I am told by Dr. Payne that he has already gotten in touch with patient's niece who is able to make some medical decision on Mr. Herrmann's behalf and wishes him transferred over the [facility]. Past Medical History Cardiac Medical History: Reports: Congestive Heart Failure - combined., Hyperlipidema, Hypertension, Other - severe cardiomyopathy and pulmonary hypertension. Pulmonary Medical History: Reports: Pneumonia Denies: Tuberculosis Neurological Medical History: Reports: Ischemic CVA Endocrine Medical History: Reports: Diabetes Mellitus Type 2 Renal/ Medical History: Reports: Chronic Kidney Disease Musculoskeltal Medical History: Reports: Arthritis Psychiatric Medical History: Denies: Depression Past Surgical History Past Surgical History: Reports: Pacemaker - ICD Social History Information Source: [facility] Records Smoking Status: Former Smoker Cigarettes Packs Per Day: 1 - 1 pack a day for more than 20 years. He quit 30 years ago. Frequency of Alcohol Use: None - Used to drink heavily for about 30 years. He quit many years ago. Hx Recreational Drug Use: No Drugs: None Hx Prescription Drug Abuse: No - Advance Directive Resuscitation Status: Full Code Surrogate healthcare decision maker:: Patient sister is the surrogate decision-maker Family History Family History: Arthritis, CAD, COPD Parental Family History Reviewed: Yes Children Family History Reviewed: Yes Sibling(s) Family History Reviewed.: Yes Medication/Allergy Home Medications: Amiodarone HCl [Cordarone 200 mg Tablet] 400 mg PO DAILY 09/30/17 Furosemide [Lasix 20 mg Tablet] 20 mg PO DAILY 09/30/17 Losartan Potassium [Cozaar 50 mg Tablet] 50 mg PO Q12 09/30/17 Metoprolol Succinate [Toprol XL 200 mg Tablet] 200 mg PO DAILY 09/30/17 Prednisone [Deltasone 1 mg Tablet] 1 mg PO DAILY 09/30/17 Sucralfate [Carafate 1 gm Tablet] 1 gm PO ACHS 09/30/17 Allergies/Adverse Reactions: No Known Allergies Allergy (Verified 07/27/17 05:17) Review of Systems ROS unobtainable: Other - Patient currently on bilevel therapy and is severely short of breath. Physical Exam Vital Signs: Temp Pulse Resp BP Pulse Ox 98.0 F 112 H 20 109/70 98 10/03/17 04:00 10/03/17 14:00 10/03/17 08:50 10/03/17 04:00 10/03/17 08:50 Intake & Output 10/02/17 10/03/17 10/04/17 06:59 06:59 06:59 Intake Total 2867 500 Output Total 1900 2150 Balance 967 -1650 Weight 135.6 kg 142.2 kg Exam: GENERAL: well-nourished and in mild respiratory distress. Alert and oriented x2 HEAD: Atraumatic, normocephalic. EYES: Pupils equal round and reactive to light, extraocular movements intact, sclera anicteric, conjunctiva are normal. ENT: TMs normal, nares patent, oropharynx clear without exudates. Moist mucous membranes. No oral ulcerations or bleeding gums noted NECK: supple without lymphadenopathy. Trachea is central. No cervical or axillary lymphadenopathy noted. Carotids are 2+, JVD elevated and distended but exact level could not be measured due to thick short neck and patient on bilevel therapy. LUNGS: Patient to be in mild respiratory distress. Bibasilar fine crackles in a scattered wheezes rales or rhonchi noted. Mild bibasal dullness noted on percussion. CHEST: Palpation of the chest wall shows no significant chest wall tenderness. No other significant abnormalities noted. 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 ABDOMEN: Soft, no significant tenderness appreciated, normoactive bowel sounds. No guarding, no rebound. No rigidity noted . No masses appreciated. EXTREMITIES: Pedal pulses are 1-2+, no calf tenderness noted. No clubbing or cyanosis. 2-3+ generalized edema. NEUROLOGICAL: Focused neurological exam showed no significant neurologic deficit. Normal speech, no focal weakness appreciated. PSYCH: Normal mood, normal affect. Judgment and insight not checked. SKIN: No significant ecchymosis, skin is noted to be warm. MUSCULOSKELETAL EXAM: No significant acute joint swelling noted. Results Laboratory Results: 10/01/17 05:19 10/03/17 03:55 10/03/17 03:55 Sodium 139.4 Potassium 3.8 Chloride 105 Carbon Dioxide 24 Anion Gap 10 BUN 64 H Creatinine 3.00 H Est GFR ( Amer) 26 L Est GFR (Non-Af Amer) 21 L Glucose 84 Calcium 8.5 Magnesium 2.4 H 09/30/17 09/30/17 09/30/17 03:52 10:13 16:30 Troponin I 0.015 0.018 0.019 EKG Comments: Today's EKG shows slow ventricular tachycardia. Previous EKG shows ventricular paced rhythm. Possible underlying atrial fibrillation Impressions: Chest X-Ray 09/29/17 22:06 IMPRESSION: NO ACUTE RADIOGRAPHIC FINDING IN THE CHEST. Venous Doppler Study 09/30/17 00:00 IMPRESSION: NO EVIDENCE DVT OR SVT IN THE LEFT LEG. Assessment & Plan - Diagnosis (1) Ventricular tachycardia Is this a current diagnosis for this admission?: Yes (2) History of cerebrovascular accident Is this a current diagnosis for this admission?: Yes (3) Acute on chronic combined systolic and diastolic CHF, NYHA class 4 Is this a current diagnosis for this admission?: Yes (4) Acute renal failure superimposed on stage 3 chronic kidney disease Qualifiers: Acute renal failure type: unspecified Qualified Code(s): N17.9 - Acute kidney failure, unspecified; N18.3 - Chronic kidney disease, stage 3 (moderate) ; N18.3 - Chronic kidney disease, stage 3 (moderate) Is this a current diagnosis for this admission?: Yes (5) Cardiomyopathy Qualifiers: Cardiomyopathy type: unspecified Qualified Code(s): I42.9 - Cardiomyopathy , unspecified Is this a current diagnosis for this admission?: Yes (6) Type 2 diabetes mellitus Qualifiers: Diabetes mellitus terminal clerk insulin use: unspecified terminal clerk insulin use status Chronic kidney disease stage: stage 4 (severe) Is this a current diagnosis for this admission?: Yes - Notes Notes: Wide-complex tachycardia/ventricular tachycardia: Patient noted to have slow wide-complex, most likely ventricular tachycardia at heart rate around 110. Currently maintaining blood pressure above 100 mmHg. Patient does have a underlying defibrillator. Feel that patient would benefit from transfer to tertiary care with grape crusher and agricultural engineering technologist service is being available. Patient may also need ventricular assist as he seems to be in class IV CHF. Patient will also benifit from upgrade to Bi-Ventricular defibrillator. CHF: Agree with IV Lasix. Acute renal failure superimposed on chronic kidney disease: Most likely related to poor cardiac output and diabetic nephropathy. Cardiomyopathy: Patient noted to have severe dilated cardiomyopathy with LVEF less than 20% and also moderate to severe mitral regurgitation. Patient probably should be in tertiary care to see if anything more can be done to help his condition. Possible upgrade to a biventricular defibrillator may help. Diabetes: Currently is stable being managed by hospitalist. Overall prognosis is poor given his stage IV congestive heart failure and severe dilated cardiomyopathy. - Time Time Spent: 30 to 50 Minutes - CODE STATUS was discussed, patient remains full code. Surrogate decision-maker unchanged. Multiple medical problems were addressed. More than 50% of the time spent coordinating care, discussing management plans with involved caregivers. Management plans discussed with involved personnels. Medical decision making was of moderate to high complexity , patient's has multiple comorbidities. Medications reviewed and adjusted accordingly: Yes
--- NOTE | 2017-10-03 16:20 | EKG REPORT ---
SEVERITY:- ABNORMAL ECG - WIDE COMPLEX TACHYCARDIA MOST LIKELY SLOW VENTRICULAR TACHYCARDIA : Confirmed by: Noel Ortega 03-Oct-2017 16:19:43
--- NOTE | 2017-10-03 16:26 | EKG REPORT ---
SEVERITY:- ABNORMAL ECG - SINUS RHYTHM VENTRICULAR PREMATURE COMPLEX FIRST DEGREE AV BLOCK NONSPECIFIC IVCD WITH LAD : Confirmed by: Noel Ortega 03-Oct-2017 16:25:12
--- NOTE | 2017-10-03 16:58 | PDOC DISCHARGE SUMMARY ---
General - Admit/Disc Date/PCP Admission Date/Primary Care Provider: 09/30/17 00:42 LONNIE SNOWDEN MD Discharge Date: 10/03/17 - Discharge Diagnosis (1) Acute on chronic combined systolic and diastolic CHF, NYHA class 4 Is this a current diagnosis for this admission?: Yes (2) Acute renal failure superimposed on stage 3 chronic kidney disease Is this a current diagnosis for this admission?: Yes (3) Pulmonary hypertension Is this a current diagnosis for this admission?: Yes (4) Type 2 diabetes mellitus Is this a current diagnosis for this admission?: Yes (5) CVA (cerebral vascular accident) Is this a current diagnosis for this admission?: Yes (6) Hypothyroid Is this a current diagnosis for this admission?: Yes - Additional Information Resuscitation Status: Full Code Discharge Diet: Cardiac, Diabetic Discharge Activity: Activity As Tolerated, Balance Activity w/Rest, Weigh Daily Home Medications: Amiodarone HCl [Cordarone 200 mg Tablet] 400 mg PO DAILY 09/30/17 Acetaminophen [Tylenol 325 mg Tablet] 650 mg PO Q4HP PRN tablet 10/03/17 Albuterol Sulfate [Ventolin 0.083% Neb 2.5 mg/3 mL Ampul] 2.5 mg NEB RTQ4HP PRN vial.neb 10/03/17 Aspirin [Ecotrin 325 mg EC Tablet] 325 mg PO DAILY tabec 10/03/17 Atorvastatin Calcium [Lipitor 40 mg Tablet] 40 mg PO QHS tablet 10/03/17 Dextrose 50%-Water [Dextrose Inj 50% Syringe (25 gm/50 ml)] 12.5 gm IV PRN PRN disp.syrin 10/03/17 Dextrose 50%-Water [Dextrose Inj 50% Syringe (25 gm/50 ml)] 25 gm IV PRN PRN disp.syrin 10/03/17 Dextrose [Glutose 40% Gel 15 gm Tube] 15 gm PO PRN PRN tube 10/03/17 Dextrose [Glutose 40% Gel 15 gm Tube] 30 gm PO PRN PRN tube 10/03/17 Furosemide [Lasix Inj/Pf 100 mg/10 ml Sdv] 250 mg IV CONTINUOUS PRN vial Glucagon,Human Recombinant [Glucagen Inj 1 mg Vial] 1 mg IM PRN PRN vial Guaifenesin/D-Methorphan Hb [Robitussin-Dm Syrup 10 ml Udcup] 10 ml PO QIDP PRN syrup 10/03/17 Heparin Sodium,Porcine [Heparin Inj 5,000 Units/ml 1 ml Syringe] 5,000 unit SUBCUT Q8 syringe 10/03/17 Insulin Lispro [Humalog Insulin (Lispro) 100 unit/mL] 0 - 12 unit SUBCUT ACHSP PRN unit 10/03/17 Lansoprazole [Prevacid 30 mg Odt Tablet] 30 mg PO Q6AM tab.ebony. 10/03/17 Promethazine HCl [Phenergan Inj 25 mg/1 ml Vial] 12.5 mg IV Q4HP PRN vial 10/03 History of Present Illness History of Present Illness: KILEY DAWSON is a 62 year old male 69-year-old male with a history of chronic combined heart failure, severe pulmonary hypertension, chronic respiratory failure with hypoxia, morbid obesity, and recent history of stroke presented to the ED with cough, shortness of breath and increased peripheral edema. Following his hospital stay for the stroke at the end of July, he has been living at a long-term facility. At the time of admission, his creatinine was also higher than it was when he was discharged from the prior hospital stay. This time it was 3.66. When he was discharged, it was 2.44. His BNP was elevated at 9720. Chest x-ray was read as not showing any acute abnormality. He does have noticeable cardiomegaly. An ICD is present on the film. Based on echocardiogram 06/2017, his EF was 20%. He has been started on IV furosemide 80 mg twice daily, initially. This was changed to furosemide infusion to avoid the potential drop in BP from a large dose of furosemide at one time. NATALYA inhibitor/ARB, beta kennedy, and Spironolactone are being held due to hypotension, and renal insufficiency. Hospital Course Hospital Course: At the time of admission, his creatinine was also higher than it was when he was discharged from the prior hospital stay. This time it was 3.66. When he was discharged, it was 2.44. His BNP was elevated at 9720. Chest x-ray was read as not showing any acute abnormality. He does have noticeable cardiomegaly. An ICD is present on the film. Based on echocardiogram 06/2017, his EF was 20%. He has been started on IV furosemide 80 mg twice daily, initially. This was changed to furosemide infusion to avoid the potential drop in BP from a large dose of furosemide at one time. NATALYA inhibitor/ARB, beta kennedy, and Spironolactone were being held due to hypotension, and renal insufficiency. On the day of transfer, he developed sustain Vtach. A cardiology consult was obtained. He was seen by Dr. Ortega who felt that the patient would benefit from transfer to a tertiary care center where an board certified music therapist and interventional cardiology service are available. He felt that the patient may also need ventricular assist as he seems to be in class IV CHF, and would benefit from upgrade to a Bi-Ventricular defibrillator. I discussed the case with Dr. Esteban at [facility], who graciously accepted the patient. Physical Exam Vital Signs: Temp Pulse Resp BP Pulse Ox 98.0 F 112 H 20 109/70 98 10/03/17 04:00 10/03/17 14:00 10/03/17 08:50 10/03/17 04:00 10/03/17 08:50 Intake & Output 10/02/17 10/03/17 10/04/17 06:59 06:59 06:59 Intake Total 2867 500 Output Total 1900 2150 Balance 967 -1650 Weight 135.6 kg 142.2 kg General appearance: PRESENT: mild distress, morbidly obese Head exam: PRESENT: atraumatic, normocephalic Eye exam: PRESENT: EOMI, PERRLA Respiratory exam: PRESENT: crackles, tachypnea Cardiovascular exam: PRESENT: RRR GI/Abdominal exam: PRESENT: distended, normal bowel sounds, soft. ABSENT: tenderness Rectal exam: PRESENT: deferred Extremities exam: PRESENT: other - 4+ edema BLE extending to hips Neurological exam: PRESENT: alert, awake, oriented to person, oriented to place , oriented to time, oriented to situation, CN II-XII grossly intact. ABSENT: motor sensory deficit Psychiatric exam: PRESENT: appropriate affect, normal mood. ABSENT: homicidal ideation, suicidal ideation Skin exam: PRESENT: dry, intact Results Laboratory Results: 10/01/17 05:19 10/03/17 03:55 10/03/17 03:55 Sodium 139.4 Potassium 3.8 Chloride 105 Carbon Dioxide 24 Anion Gap 10 BUN 64 H Creatinine 3.00 H Est GFR ( Amer) 26 L Est GFR (Non-Af Amer) 21 L Glucose 84 Calcium 8.5 Magnesium 2.4 H 09/30/17 09/30/17 09/30/17 03:52 10:13 16:30 Troponin I 0.015 0.018 0.019 Impressions: Chest X-Ray 09/29/17 22:06 IMPRESSION: NO ACUTE RADIOGRAPHIC FINDING IN THE CHEST. Venous Doppler Study 09/30/17 00:00 IMPRESSION: NO EVIDENCE DVT OR SVT IN THE LEFT LEG. Qualifiers - * PATEINT BEING DISCHARGED WITH ANY OF THE FOLLOWING DIAGNOSIS?: Stroke, Heart Failure VTE patient discharged on overlapping Therapy?: Yes Stroke Pt being discharged on Anti-thrombolytic therapy?: Yes Stroke Pt being discharged on Anti-coagulation therapy?: No Reason(s) for not prescribing Anti-coagulation therapy:: Not indicated Stroke Pt being discharged on Statins?: Yes HF Pt being discharged on ACEI for LVEF less than 40%?: No Reason(s) for not prescribing ACEI:: Medical Contraindication - hypotension and renal failure HF Pt being discharged on ARBS for LVEF less than 40%?: No Reason(s) for not prescribing ARBS:: Medical Contraindication - hypotension and renal failure HF Pt with Afib discharged with Warfarin?: No Reason(s) for not prescribing Warfarin:: Not indicated HF Pt discharged on evidence-based Beta Kennedy:: No Reason(s) for not prescribing evidence-based Beta Kennedy:: Medical Contraindication - hypotension Plan Discharge Plan: Transfer to [facility] Time Spent: Greater than 30 Minutes - 40 minutes
[2017-10-03] MEDS: ATORVASTATIN CALCIUM 40 MG TABLET PO SCH (21:41)
[2017-10-03 23:43] VITALS: BP 108/68
== END 2017-10-04 00:30 | disposition short-term general hospital (02) | DRG 291 ==
LOC: ER 21:35 → EH 09-30 00:42 → 5 09-30 02:00
PROVIDERS: ADMIT Internal Medicine Geriatric Medicine; ATTEND Internal Medicine Geriatric Medicine
PROC: 5A09457 Assistance with Respiratory Ventilation, 24-96 Consecutive Hours, Continuous Positive Airway Pressure (ICD-10-PCS; principal; 2017-09-30)
DX: I13.0 Hypertensive heart and chronic kidney disease with heart failure and stage 1 through stage 4 chronic kidney disease, or unspecified chronic kidney disease (principal); I50.43 Acute on chronic combined systolic (congestive) and diastolic (congestive) heart failure; N17.9 Acute kidney failure, unspecified; E87.2 Acidosis; J96.11 Chronic respiratory failure with hypoxia; Z68.42 Body mass index [BMI] 45.0-49.9, adult; I47.2 Ventricular tachycardia; E03.9 Hypothyroidism, unspecified; N18.3 Chronic kidney disease, stage 3 (moderate); E11.22 Type 2 diabetes mellitus with diabetic chronic kidney disease; M19.90 Unspecified osteoarthritis, unspecified site; E87.5 Hyperkalemia; I42.9 Cardiomyopathy, unspecified; I27.20 Pulmonary hypertension, unspecified; E66.01 Morbid (severe) obesity due to excess calories; Z79.4 Long term (current) use of insulin; Z86.73 Personal history of transient ischemic attack (TIA), and cerebral infarction without residual deficits; Z95.0 Presence of cardiac pacemaker; Z87.891 Personal history of nicotine dependence
CPT/HCPCS: 36415; 71045; 80048; 80053; 81001; 82550; 82553; 82803; 82962; 83605; 83735; 83880; 84100; 84443; 84484; 85025; 85027; 85610; 93005; 93010; 93971; 94640; 94660; 99291; J1644; J1940; J3490; J7050